=== PATIENT | female | born 1980 | race Caucasian/White ===

== ENCOUNTER 2019-06-21 11:14 | Observation (INO) | payer BC ==
[2019-06-21] MEDS ORDERED: KETOROLAC 30 MG/ML 1 ML VIAL IVP STA (11:39)
[2019-06-21] MEDS ORDERED: ONDANSETRON 4 MG/2 ML VIAL IVP STA (11:39)
[2019-06-21] MEDS ORDERED: SODIUM CHLORIDE 0.9% 1,000 ML IV STA (11:39)
[2019-06-21 12:13] LABS: Basophils % (A) 0 %; Eosinophils # (A) 0.2 k/uL (0-0.7); Eosinophils % (A) 1 %; HCT 47.3 % (34.0-46.0); HGB 15.5 gm/dL (11.4-16.0); Lymphocytes # (A) 1.7 k/uL (1.0-4.8); Lymphocytes % (A) 16 %; MCH 31.5 pg (25.0-35.0); MCHC 32.9 g/dL (31.0-37.0); MCV 95.9 fL (80.0-100.0); Mean Platelet Volume 6.8; Monocytes # (A) 0.5 k/uL (0-1.0); Monocytes % (A) 5 %; Neutrophils # (A) 8.4 k/uL (1.3-7.7); Neutrophils % (A) 77 %; Platelet Count 306 k/uL (150-450); RBC 4.93 m/uL (3.80-5.40); RDW 12.2 % (11.5-15.5); WBC 10.9 k/uL (3.8-10.6)
[2019-06-21 12:17] LABS: ALT 39 U/L (9-52); AST 27 U/L (14-36); African American GFR (CKD) >90 (>60 ml/min/1.73 sqM); Albumin 4.8 g/dL (3.5-5.0); Alkaline Phosphatase 76 U/L (38-126); Amylase 69 U/L (30-110); Anion Gap 10 mmol/L; Blood Urea Nitrogen 13 mg/dL (7-17); Carbon Dioxide 32 mmol/L (22-30); Chloride 96 mmol/L (98-107); Glucose 118 mg/dL (74-99); Non-African American GFR(CKD) >90 (>60 ml/min/1.73 sqM); Sodium 138 mmol/L (137-145); Total Bilirubin 1.2 mg/dL (0.2-1.3); Total Protein 7.8 g/dL (6.3-8.2)
[2019-06-21 12:19] LABS: Partial Thromboplastin Time 24.3 sec (22.0-30.0); Prothrombin Time 10.8 sec (9.0-12.0)
[2019-06-21 12:25] LABS: Appearance,Urine Cloudy (Clear); Bacteria,Urine Rare /hpf; Bilirubin,Urine Negative (Negative); Blood,Urine Large (Negative); Color,Urine Light Red; Glucose,Urine (UA) Negative (Negative); Ketones,Urine 1+ (Negative); Leukocyte Esterase,Urine Moderate (Negative); Mucus,Urine Many /hpf; Nitrite,Urine Negative (Negative); PH, Urine 5.5 (5.0-8.0); Protein,Urine 1+ (Negative); RBC,Urine 3 /hpf (0-5); Specific Gravity,Urine 1.028 (1.001-1.035); Squamous Epithelial Cell,Urine 21 /hpf (0-4); WBC,Urine 5 /hpf (0-5)
[2019-06-21] MEDS ORDERED: MORPHINE SULFATE 4 MG/ML SYRINGE IVP STA (12:33)
--- NOTE | 2019-06-21 13:06 | ED ---
Abdominal Pain HPI - General Chief Complaint: Abdominal Pain Stated Complaint: abdominal pain Time Seen by Provider: 06/21/19 11:24 Source: patient Mode of arrival: ambulatory Limitations: no limitations - History of Present Illness Initial Comments: Patient is a 38-year-old female presenting to emergency Department with complaints of abdominal pain, nausea, vomiting. Patient states she has had abdominal pain intermittently for the last week. Patient states she just started vomiting today. Patient denies any fever, chills, diarrhea. Patient denies any history of abdominal surgeries. Patient has been having regular bowel movements. Patient states she did go to her doctor earlier this week and they recommended her going on a clear liquid diet. Patient states she did that for 2 days and then was feeling better yesterday so she reintroduce some food. Patient states she woke up early this morning and was severe pain again. Patient has no history of kidney stones. Patient denies urinary complaints at this time. Patient has no other complaints at this time. Upon arrival to the ER, vital signs are stable. - Related Data Home Medications Medication Instructions Recorded Confirmed Ibuprofen [Motrin Ib] 400 mg PO Q6H PRN 06/21/19 06/21/19 Allergies Allergy/AdvReac Type Severity Reaction Status Date / Time Penicillins Allergy Unknown Verified 06/21/19 13:59 Childhood Review of Systems ROS Statement: Those systems with pertinent positive or pertinent negative responses have been documented in the HPI. ROS Other: All systems not noted in ROS Statement are negative. Past Medical History Past Medical History: No Reported History History of Any Multi-Drug Resistant Organisms: None Reported Past Surgical History: Joint Replacement, Tubal Ligation Past Psychological History: No Psychological Hx Reported Smoking Status: Current every day smoker Past Alcohol Use History: None Reported Past Drug Use History: Marijuana General Exam - General Exam Comments Initial Comments: GENERAL: Patient is called on the bed with knees underneath her, and pain. HEAD: Atraumatic, normocephalic. EYES: Pupils equal round and reactive to light, extraocular movements intact, sclera anicteric, conjunctiva are normal. ENT: Nares patent, oropharynx clear without exudates. Moist mucous membranes. NECK: Normal range of motion, supple without lymphadenopathy or JVD. LUNGS: Breath sounds clear to auscultation bilaterally and equal. No wheezes rales or rhonchi. HEART: Regular rate and rhythm without murmurs, rubs or gallops. ABDOMEN: Tender to palpation epigastric and right and left upper quadrants. Soft, normoactive bowel sounds. No guarding, no rebound. No masses appreciated. : Deferred EXTREMITIES: Normal range of motion, no pitting or edema. No clubbing or cyanosis. NEUROLOGICAL: Normal speech, normal gait. PSYCH: Normal mood, normal affect. SKIN: Warm, Dry, normal turgor, no rashes or lesions noted. Limitations: no limitations Course Vital Signs 06/21/19 11:19 Temperature 97.6 F Pulse Rate 52 L Respiratory 18 Rate Blood Pressure 120/67 O2 Sat by Pulse 99 Oximetry Medical Decision Making - Medical Decision Making Patient is a 30-year-old female presenting with abdominal pain 1 week as well as vomiting 1 day. Vital signs are stable upon arrival. Patient has very slight leukocytosis at 10.9. Potassium is 3.0. Lipase is slightly elevated at 432. UA is within normal limits. Ultrasound the gallbladder shows no acute findings. Patient was given fluids, pain medication, Zofran and reports slight improvement in symptoms. Patient is still having pain. Patient will be admitted for pain control and fluids. Potassium was replenished. Patient is agreement with this plan of care. Patient was accepted by Dr. De Leon. Case discussed in detail with Dr. Pérez who agrees with this plan of care. - Lab Data Result diagrams: 06/21/19 11:54 06/21/19 11:54 Lab Results 06/21/19 06/21/19 06/21/19 Range/Units 11:54 11:54 11:54 WBC 10.9 H (3.8-10.6) k/uL RBC 4.93 (3.80-5.40) m/uL Hgb 15.5 (11.4-16.0) gm/dL Hct 47.3 H (34.0-46.0) % MCV 95.9 (80.0-100.0) fL MCH 31.5 (25.0-35.0) pg MCHC 32.9 (31.0-37.0) g/dL RDW 12.2 (11.5-15.5) % Plt Count 306 (150-450) k/uL Neutrophils % 77 % Lymphocytes % 16 % Monocytes % 5 % Eosinophils % 1 % Basophils % 0 % Neutrophils # 8.4 H (1.3-7.7) k/uL Lymphocytes # 1.7 (1.0-4.8) k/uL Monocytes # 0.5 (0-1.0) k/uL Eosinophils # 0.2 (0-0.7) k/uL Basophils # 0.0 (0-0.2) k/uL PT (9.0-12.0) sec INR (<1.2) APTT (22.0-30.0) sec Sodium 138 (137-145) mmol/L Potassium 3.0 L (3.5-5.1) mmol/L Chloride 96 L (98-107) mmol/L Carbon Dioxide 32 H (22-30) mmol/L Anion Gap 10 mmol/L BUN 13 (7-17) mg/dL Creatinine 0.83 (0.52-1.04) mg/dL Est GFR (CKD-EPI)AfAm >90 (>60 ml/min/1.73 sqM) Est GFR (CKD-EPI)NonAf >90 (>60 ml/min/1.73 sqM) Glucose 118 H (74-99) mg/dL Calcium 10.0 (8.4-10.2) mg/dL Total Bilirubin 1.2 (0.2-1.3) mg/dL AST 27 (14-36) U/L ALT 39 (9-52) U/L Alkaline Phosphatase 76 (38-126) U/L Total Protein 7.8 (6.3-8.2) g/dL Albumin 4.8 (3.5-5.0) g/dL Amylase 69 (30-110) U/L Lipase 432 H (23-300) U/L Urine Color Urine Appearance (Clear) Urine pH (5.0-8.0) Ur Specific [place] (1.001-1.035) Urine Protein (Negative) Urine Glucose (UA) (Negative) Urine Ketones (Negative) Urine Blood (Negative) Urine Nitrite (Negative) Urine Bilirubin (Negative) Urine Urobilinogen (<2.0) mg/dL Ur Leukocyte Esterase (Negative) Urine RBC (0-5) /hpf Urine WBC (0-5) /hpf Ur Squamous Epith Cells (0-4) /hpf Urine Bacteria (None) /hpf Urine Mucus (None) /hpf Urine HCG, Qual Not Detected (Not Detectd) 06/21/19 06/21/19 Range/Units 11:54 11:54 WBC (3.8-10.6) k/uL RBC (3.80-5.40) m/uL Hgb (11.4-16.0) gm/dL Hct (34.0-46.0) % MCV (80.0-100.0) fL MCH (25.0-35.0) pg MCHC (31.0-37.0) g/dL RDW (11.5-15.5) % Plt Count (150-450) k/uL Neutrophils % % Lymphocytes % % Monocytes % % Eosinophils % % Basophils % % Neutrophils # (1.3-7.7) k/uL Lymphocytes # (1.0-4.8) k/uL Monocytes # (0-1.0) k/uL Eosinophils # (0-0.7) k/uL Basophils # (0-0.2) k/uL PT 10.8 (9.0-12.0) sec INR 1.0 (<1.2) APTT 24.3 (22.0-30.0) sec Sodium (137-145) mmol/L Potassium (3.5-5.1) mmol/L Chloride (98-107) mmol/L Carbon Dioxide (22-30) mmol/L Anion Gap mmol/L BUN (7-17) mg/dL Creatinine (0.52-1.04) mg/dL Est GFR (CKD-EPI)AfAm (>60 ml/min/1.73 sqM) Est GFR (CKD-EPI)NonAf (>60 ml/min/1.73 sqM) Glucose (74-99) mg/dL Calcium (8.4-10.2) mg/dL Total Bilirubin (0.2-1.3) mg/dL AST (14-36) U/L ALT (9-52) U/L Alkaline Phosphatase (38-126) U/L Total Protein (6.3-8.2) g/dL Albumin (3.5-5.0) g/dL Amylase (30-110) U/L Lipase (23-300) U/L Urine Color Light Red Urine Appearance Cloudy H (Clear) Urine pH 5.5 (5.0-8.0) Ur Specific [place] 1.028 (1.001-1.035) Urine Protein 1+ H (Negative) Urine Glucose (UA) Negative (Negative) Urine Ketones 1+ H (Negative) Urine Blood Large H (Negative) Urine Nitrite Negative (Negative) Urine Bilirubin Negative (Negative) Urine Urobilinogen 6.0 (<2.0) mg/dL Ur Leukocyte Esterase Moderate H (Negative) Urine RBC 3 (0-5) /hpf Urine WBC 5 (0-5) /hpf Ur Squamous Epith Cells 21 H (0-4) /hpf Urine Bacteria Rare H (None) /hpf Urine Mucus Many H (None) /hpf Urine HCG, Qual (Not Detectd) Disposition Clinical Impression: Pancreatitis Disposition: ADMITTED IP TO THIS [facility] Condition: Stable Is patient prescribed a controlled substance at d/c from ED?: No Referrals: Tanmay Vail MD [Primary Care Provider] - 1-2 days Decision Date: 06/21/19 Decision Time: 14:01
--- NOTE | 2019-06-21 13:09 | US ---
EXAMINATION TYPE: US gallbladder DATE OF EXAM: 06/21/2019 COMPARISON: NONE CLINICAL HISTORY: pain, elevated lipase. EXAM MEASUREMENTS: Liver Length: 11.5 cm Gallbladder Wall: 0.2 cm CBD: 0.1 cm Right Kidney: 9.5 x 3.2 x 4.9 cm Pancreas: wnl Liver: wnl Gallbladder: wnl Evidence for sonographic Sanchez's sign: no CBD: wnl Right Kidney: No hydronephrosis or masses seen IMPRESSION: Unremarkable study.
[2019-06-21] MEDS ORDERED: ACETAMINOPHEN TAB 325 MG TAB PO PRN (13:57)
[2019-06-21] MEDS ORDERED: ONDANSETRON 4 MG/2 ML VIAL IVP PRN (13:57)
[2019-06-21] MEDS ORDERED: traMADol 50 MG TAB PO PRN (13:57)
[2019-06-21] MEDS ORDERED: NALOXONE 0.4 MG/ML 1 ML VIAL IV PRN (13:57)
[2019-06-21] MEDS: SODIUM CHLORIDE 0.9% 1,000 ML IV SCH (14:43)
[2019-06-21] MEDS: POTASSIUM CHLORIDE 10 MEQ in WATER FOR INJECTION 1 100ML.BAG IVPB SCH ×4 (14:44→19:47)
[2019-06-21] MEDS: MORPHINE SULFATE 4 MG/ML SYRINGE IV PRN (17:13)
[2019-06-22] MEDS: MORPHINE SULFATE 4 MG/ML SYRINGE IV PRN (01:27)
[2019-06-22 01:35] VITALS: RESP 16
[2019-06-22] MEDS: SODIUM CHLORIDE 0.9% 1,000 ML IV SCH (06:08)
[2019-06-22 13:41] VITALS: BMI 21.7
[2019-06-22] MEDS ORDERED: FAMOTIDINE 20 MG TAB PO STA (15:37)
[2019-06-22] MEDS ORDERED: NICOTINE 14MG/24HR PATCH TRANSDERM SCH (15:45)
[2019-06-22 16:24] VITALS: BP 141/62; PULSE 66; TEMP 97.9
--- NOTE | 2019-06-22 22:57 | P.HPIM ---
History of Present Illness H&P Date: 06/22/19 Chief Complaint: Epigastric burning History of presenting complaint: This is a 38-year-old patient of Dr. Vail. Present with her . Patient does get epigastric burning with heartburn discomfort off and on for some time. Patient does smoke cigarettes and sometimes take Motrin including when she gets painful periods. 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 Patient gets per 4:00 and will have a few bowel movements and then depending what she can get has to eat and then go to work. Sometimes she'll work in early drink coffee. This is a routine. She is anxious. And during the interview often times will break down crying. The bun incision in the epigastrium also goes up into her chest. No radiation to neck or arm. Not related to activity. She is also tender in the epigastrium. No black stools. She in the past has followed up with Bettye mccauley. But then never followed up. No fever no chills. Review of systems: GEN.: Tired EYES: None HEENT: None NECK: None RESPIRATORY: Occasional wheezing CARDIOVASCULAR: No prechordal pain GASTROINTESTINAL: As above GENITOURINARY: Some urinary frequency and patient on a periods MUSCULOSKELETAL: None LYMPHATICS: None HEMATOLOGICAL: None PSYCHIATRY: Anxious NEUROLOGICAL: None Past medical history: Unremarkable Social history: Smokes half a pack a day most days sometimes more. For many years. Does marijuana 2 or 3 times a day. 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 EYES: Pupils equal. Conjunctiva normal. HEENT: External appearance of nose and ears normal, oral cavity grossly normal. NECK: JVD not raised; masses not palpable. HEART: First and second heart sounds are normal; no edema. LUNGS: Respiratory rate normal; slightly decreased breath sounds. ABDOMEN: Soft, some epigastric tenderness, no guarding rigidity, liver spleen not palpable, no masses palpable. PSYCH: [Alert and oriented x3; mood and affect anxious l. NEUROLOGICAL: Cranial nerves grossly intact; no facial asymmetry, power and sensation grossly intact. LYMPHATICS: No lymph nodes palpable in the axilla and neck INVESTIGATIONS, reviewed in the clinical context: White count 10.9 hemoglobin 15.5 platelets 306 potassium 3 creatinine 0.83 Amylase normal Lipase-432 UA-positive for leukoesterase and blood Ultrasound for gallbladder-negative Assessment: -Patient is a long-standing history of epigastric burning which is progressively gotten worse. Patient does take NSAIDs occasionally. Also long-standing smoker. Patient's history and findings are compatible with gastritis esophagitis and GERD. Patient is feeling better since admission. -Chronic nicotine dependence cigarette smoker -Chronic marijuana use recreational Plan: Patient started on clear liquids which she did tolerate. Given IV fluids. Counseled about maintaining good eating habits and schedule. Care was discussed at length with the patient and at the bedside. is very supportive of the discussion. Smoke cessation counseling: This was done with the patient. Nicotine patch is being given. More than 3 minutes was spent for this Past Medical History Past Medical History: No Reported History Additional Past Medical History / Comment(s): daily marijuana use History of Any Multi-Drug Resistant Organisms: None Reported Past Surgical History: Joint Replacement, Tubal Ligation Additional Past Surgical History / Comment(s): joint replacement left knee Past Anesthesia/Blood Transfusion Reactions: Postoperative Nausea & Vomiting (PONV) Past Psychological History: No Psychological Hx Reported Smoking Status: Current every day smoker Past Alcohol Use History: None Reported Past Drug Use History: Marijuana Additional Drug Use History / Comment(s): daily marijuana use - Past Family History Mother Additional Family Medical History / Comment(s): gall bladder removed, bleeding ulcer Medications and Allergies Home Medications Medication Instructions Recorded Confirmed Type Acetaminophen Tab [Tylenol Tab] 500 mg PO Q6H PRN #30 tablet 06/22/19 Rx Ciprofloxacin HCl [Cipro] 250 mg PO Q12HR #6 tablet 06/22/19 Rx Famotidine [Pepcid] 20 mg PO BID #60 tablet 06/22/19 Rx Nicotine 14Mg/24Hr Patch [Habitrol] 1 patch TRANSDERM DAILY #14 patch 06/22/19 Rx Allergies Allergy/AdvReac Type Severity Reaction Status Date / Time Penicillins Allergy Unknown Verified 06/21/19 15:07 Childhood Physical Exam Vitals: Vital Signs Temp Pulse Pulse Resp BP BP Pulse Ox 06/22/19 08:00 97.4 F L 52 L 16 109/75 98 06/22/19 01:35 98.5 F 52 L 16 91/55 98 06/22/19 00:00 52 L 16 06/21/19 20:30 98.5 F 52 L 16 93/52 99 06/21/19 17:20 97.7 F 52 L 16 121/62 98 06/21/19 15:00 52 L 06/21/19 14:47 97.5 F L 52 L 14 129/57 100 06/21/19 14:11 98.4 F 50 L 16 126/76 100 06/21/19 11:19 97.6 F 52 L 18 120/67 99 Intake and Output 06/21/19 06/22/19 06/22/19 22:59 06:59 14:59 Intake Total 180 Output Total 50 300 Balance 130 -300 Intake: Oral 180 Output: Urine 50 300 Other: Voiding Method Toilet Toilet Toilet # Voids 1 1 1 # Bowel Movements 1 Results CBC & Chem 7: 06/21/19 11:54 06/21/19 22:11 Labs: Abnormal Lab Results - Last 24 Hours (Table) 06/21/19 06/21/19 06/21/19 Range/Units 11:54 11:54 11:54 WBC 10.9 H (3.8-10.6) k/uL Hct 47.3 H (34.0-46.0) % Neutrophils # 8.4 H (1.3-7.7) k/uL Potassium 3.0 L (3.5-5.1) mmol/L Chloride 96 L (98-107) mmol/L Carbon Dioxide 32 H (22-30) mmol/L Glucose 118 H (74-99) mg/dL Lipase 432 H (23-300) U/L Urine Appearance Cloudy H (Clear) Urine Protein 1+ H (Negative) Urine Ketones 1+ H (Negative) Urine Blood Large H (Negative) Ur Leukocyte Esterase Moderate H (Negative) Ur Squamous Epith Cells 21 H (0-4) /hpf Urine Bacteria Rare H (None) /hpf Urine Mucus Many H (None) /hpf Thrombosis Risk Factor Assmnt - Choose All That Apply Any of the Below Risk Factors Present?: No Other Risk Factors: No Each Risk Factor Represents 3 Points: Family history of DVT/PE Other congenital or acquired thrombophilia - If yes, enter type in comment: No Thrombosis Risk Factor Assessment Total Risk Factor Score: 3 Thrombosis Risk Factor Assessment Level: Very Low Risk
--- NOTE | 2019-06-22 23:00 | P.DS ---
Providers Date of admission: 06/21/19 13:51 Expected date of discharge: 06/22/19 Attending physician: Brennan De Leon Primary care physician: [facility] Course: Chief Complaint: Epigastric burning History of presenting complaint: This is a 38-year-old patient of Dr. Vail. Present with her . Patient does get epigastric burning with heartburn discomfort off and on for some time. Patient does smoke cigarettes and sometimes take Motrin including when she gets painful periods. 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 Patient gets per 4:00 and will have a few bowel movements and then depending what she can get has to eat and then go to work. Sometimes she'll work in early drink coffee. This is a routine. She is anxious. And during the interview often times will break down crying. The bun incision in the epigastrium also goes up into her chest. No radiation to neck or arm. Not related to activity. She is also tender in the epigastrium. No black stools. She in the past has followed up with Bettye mccauley. But then never followed up. No fever no chills. Patient given Pepcid. 2 which she felt better. Counseled at length about not smoking. Talked about lifestyle changes in food habits. We'll follow with GI for possible EGD. started on H2 blockers. Symptoms much better by the time of discharge. Did tolerate her diet. Treated for UTI. Told to discontinue NSAIDs. Physical examination: VITAL SIGNS: 97.7, 52, 16, 121/62, 98% room air GENERAL: BMI 21.7, sitting up, anxious sometimes tearful. EYES: Pupils equal. Conjunctiva normal. HEENT: External appearance of nose and ears normal, oral cavity grossly normal. NECK: JVD not raised; masses not palpable. HEART: First and second heart sounds are normal; no edema. LUNGS: Respiratory rate normal; slightly decreased breath sounds. ABDOMEN: Soft, some epigastric tenderness, no guarding rigidity, liver spleen not palpable, no masses palpable. PSYCH: [Alert and oriented x3; mood and affect anxious INVESTIGATIONS, reviewed in the clinical context: White count 10.9 hemoglobin 15.5 platelets 306 potassium 3 creatinine 0.83 Amylase normal Lipase-432 UA-positive for leukoesterase and blood Ultrasound for gallbladder-negative Assessment: -Possible gastritis, duodenitis, esophagitis and severe GERD with a contribution from smoking and use of NSAIDs. -Chronic nicotine dependence cigarette smoker -Chronic marijuana use recreational Disposition: Home Patient Condition at Discharge: Stable Plan - Discharge Summary Discharge Rx Participant: No New Discharge Prescriptions: New Ciprofloxacin HCl [Cipro] 250 mg PO Q12HR #6 tablet Nicotine 14Mg/24Hr Patch [Habitrol] 1 patch TRANSDERM DAILY #14 patch Famotidine [Pepcid] 20 mg PO BID #60 tablet Acetaminophen Tab [Tylenol Tab] 500 mg PO Q6H PRN #30 tablet PRN Reason: Pain Discontinued Ibuprofen [Motrin Ib] 400 mg PO Q6H PRN PRN Reason: Pain Discharge Medication List Acetaminophen Tab [Tylenol Tab] 500 mg PO Q6H PRN #30 tablet 06/22/19 [Rx] Ciprofloxacin HCl [Cipro] 250 mg PO Q12HR #6 tablet 06/22/19 [Rx] Famotidine [Pepcid] 20 mg PO BID #60 tablet 06/22/19 [Rx] Nicotine 14Mg/24Hr Patch [Habitrol] 1 patch TRANSDERM DAILY #14 patch 06/22/19 [Rx] Follow up Appointment(s)/Referral(s): Tanmay Vail MD [Primary Care Provider] - 3 Days Jairo Cervantes MD [STAFF PHYSICIAN] - 1 Week Patient Instructions/Handouts: Pancreatitis (GEN), Potassium Content of Foods List (GEN) Activity/Diet/Wound Care/Special Instructions: Good handwashing. Drink plenty of fluids. Keep follow up appointment with your primary care physician as directed. Make an appointment to see Dr Cervantes as instructed. Discharge Disposition: HOME SELF-CARE
== END 2019-06-22 17:45 | disposition home or self-care (01) ==
LOC: EC 11:14 → 6PED 13:51
PROVIDERS: ADMIT Hospitalist; ATTEND Hospitalist
DX: R10.13 Epigastric pain (principal); T39.395A Adverse effect of other nonsteroidal anti-inflammatory drugs [NSAID], initial encounter; N39.0 Urinary tract infection, site not specified; N94.6 Dysmenorrhea, unspecified; R10.816 Epigastric abdominal tenderness; R74.8 Abnormal levels of other serum enzymes; D72.829 Elevated white blood cell count, unspecified; F17.210 Nicotine dependence, cigarettes, uncomplicated; F12.90 Cannabis use, unspecified, uncomplicated; Z88.0 Allergy status to penicillin; F41.9 Anxiety disorder, unspecified; Z98.51 Tubal ligation status; Z96.652 Presence of left artificial knee joint; Z82.49 Family history of ischemic heart disease and other diseases of the circulatory system; Z83.79 Family history of other diseases of the digestive system
CPT/HCPCS: 96365; 96366; 96367; 96376 ×2; 96361; 96375; 99285; 36415; 80053; 82150; 83690; 84132; 85025; 85610; 85730; 81001; 81025; 76705; G0378 ×2; S4990; J2270 ×2; J2405; J0696; J1885; J3480

== ENCOUNTER 2020-10-12 08:15 | Day surgery (SDC) | payer BC ==
[2020-10-04 12:36] VITALS: BMI 22.6
[~2020-10-12 08:15] MED LIST: LACTATED RINGERS 1,000 ML IV SCH
[2020-10-12 08:58] VITALS: RESP 16; TEMP 97.9
[2020-10-12] MEDS ORDERED: GLYCOPYRROLATE 0.2 MG/ML 2 ML VIAL ONE (10:01)
[2020-10-12] MEDS ORDERED: PROPOFOL 10 MG/ML 20 ML VIAL IV ONE (10:01)
[2020-10-12] MEDS ORDERED: LIDOCAINE 1% INJ 10MG/ML (20 ML MDV) ONE (10:01)
[2020-10-12] MEDS ORDERED: LACTATED RINGERS 1,000 ML IV ONE (10:39)
--- NOTE | 2020-10-12 10:44 | P.PCN ---
Date of Procedure: 10/12/20 Description of Procedure: Brief history: Patient is a pleasant 40-year-old female presenting for outpatient EGD and colonoscopy for evaluation of epigastric abdominal pain and benign neoplasm of the colon. She reports pain in the epigastric and right upper quadrant of her abdomen. She reports diagnosis of cannabinoid hyperemesis syndrome. Prior colonoscopy in 2018 with rectal polyp and diverticulosis. Procedure performed: Esophagogastroduodenoscopy with biopsy Colonoscopy with polypectomy Estimated blood loss: Minimal. Preoperative diagnosis: Epigastric abdominal pain, right upper quadrant abdominal pain, benign neoplasm of the colon, prior colonoscopy in 2018 with polypectomy Anesthesia: [facility] [place] Procedure: After informed consent was obtained from the patient was brought into the endoscopy unit and IV sedation was administered by anesthesia under continuous monitoring. Initially upper endoscopy was done. The Olympus GF 190 video endoscope was inserted into the mouth and esophagus intubated without any difficulty and was gradually advanced into the stomach and duodenum and c arefully examined. The bulb and second part of the duodenum appeared normal, with biopsies taken. The scope was then withdrawn into the stomach adequately insufflated with air and upon careful examination the antrum and body, cardia and fundus appeared normal Except for some mild punctate erythema in the antrum and body suggestive of mild gastritis biopsies taken . The scope was then withdrawn into the esophagus. The GE junction was located at 40 cm to the incisors and biopsied . It appeared regular with no erythema erosions or ulcerations. Rest of the esophagus appeared normal. Patient tolerated the procedure well. At this time the patient continued to remain sedation. Initial digital rectal examination was normal. Olympus CF 190 video colonoscope was then inserted into the rectum and gradually advanced to the cecum without any difficulty. Careful examination was performed as the scope was gradually being withdrawn. The prep was excellent. The cecum, ascending colon, transverse colon, descending colon, sigmoid colon and rectum appeared normal, With multiple small mouth diverticula in the left colon. A flat 4 mm sigmoid polyp was removed with cold snare polypectomy. Retroflexion was performed in the rectum and no lesions were noted, Low-grade internal hemorrhoids. Patient tolerated the procedure well. Impression: 1. Mild gastritis. Biopsies of the duodenum, antrum body and GE junction. 2. Flat sigmoid colon polyp removed with cold snare polypectomy. Mild left colonic diverticulosis. Internal hemorrhoids. Recommendations: Findings of this examination were discussed with the patient as well as her family. Okay to resume diet. Continue medication. Await pathology from biopsies and polypectomy. Follow-up in the GI clinic as previously scheduled. Recommend repeat colonoscopy in 7 years for colon polyp pending pathology from polypectomy.
[2020-10-12 11:04] VITALS: BP 127/75; PULSE 68
== END 2020-10-12 11:44 | disposition home or self-care (01) ==
LOC: ORWHC2ENDO 08:15
PROVIDERS: ATTEND Internal Medicine
DX: K63.5 Polyp of colon (principal); K57.30 Diverticulosis of large intestine without perforation or abscess without bleeding; K64.8 Other hemorrhoids; K29.50 Unspecified chronic gastritis without bleeding; K20.90 Esophagitis, unspecified without bleeding; F17.210 Nicotine dependence, cigarettes, uncomplicated; R11.10 Vomiting, unspecified; F12.90 Cannabis use, unspecified, uncomplicated; Z86.010 Personal history of colon polyps; Z88.0 Allergy status to penicillin; Z79.899 Other long term (current) drug therapy; Z98.51 Tubal ligation status; Z98.890 Other specified postprocedural states; Z97.2 Presence of dental prosthetic device (complete) (partial); Z96.652 Presence of left artificial knee joint; Z91.89 Other specified personal risk factors, not elsewhere classified
CPT/HCPCS: 81025; 88305; 45385; 43239; J2001; J2704

== ENCOUNTER 2022-03-13 10:19 | Emergency (ER) | payer BC ==
[2022-03-13 10:32] VITALS: PULSE 74; TEMP 97.7
[2022-03-13] MEDS ORDERED: SODIUM CHLORIDE 0.9% 1,000 ML IV STA (11:48)
[2022-03-13] MEDS ORDERED: ONDANSETRON 4 MG/2 ML VIAL IVP STA (11:48)
[2022-03-13 12:35] LABS: Basophils # (A) 0.1 k/uL (0-0.2); Basophils % (A) 0 %; Eosinophils # (A) 0.2 k/uL (0-0.7); Eosinophils % (A) 2 %; HCT 45.7 % (34.0-46.0); Lymphocytes # (A) 1.9 k/uL (1.0-4.8); Lymphocytes % (A) 14 %; MCH 30.9 pg (25.0-35.0); MCHC 30.6 g/dL (31.0-37.0); MCV 100.9 fL (80.0-100.0); Mean Platelet Volume 7.3; Monocytes # (A) 0.5 k/uL (0-1.0); Monocytes % (A) 4 %; Neutrophils # (A) 11.1 k/uL (1.3-7.7); Neutrophils % (A) 79 %; Platelet Count 389 k/uL (150-450); RBC 4.53 m/uL (3.80-5.40)
[2022-03-13 12:38] LABS: Appearance,Urine Cloudy (Clear); Bacteria,Urine Rare /hpf; Bilirubin,Urine Negative (Negative); Blood,Urine Negative (Negative); Color,Urine Yellow; Glucose,Urine (UA) Negative (Negative); Ketones,Urine Negative (Negative); Leukocyte Esterase,Urine Small (Negative); Mucus,Urine Occasional /hpf; Nitrite,Urine Negative (Negative); Protein,Urine Negative (Negative); RBC,Urine 1 /hpf (0-5); Specific Gravity,Urine 1.013 (1.001-1.035); Squamous Epithelial Cell,Urine 4 /hpf (0-4); Urobilinogen,Urine <2.0 mg/dL (<2.0); WBC,Urine 2 /hpf (0-5)
[2022-03-13 12:51] LABS: ALT 12 U/L (4-34); AST 19 U/L (14-36); African American GFR (CKD) >90 (>60 ml/min/1.73 sqM); Albumin 4.2 g/dL (3.5-5.0); Alkaline Phosphatase 115 U/L (38-126); Anion Gap 9 mmol/L; Blood Urea Nitrogen 5 mg/dL (7-17); Carbon Dioxide 25 mmol/L (22-30); Chloride 105 mmol/L (98-107); Glucose 92 mg/dL (74-99); Lipase 52 U/L (23-300); Non-African American GFR(CKD) >90 (>60 ml/min/1.73 sqM); Potassium 4.4 mmol/L (3.5-5.1); Sodium 139 mmol/L (137-145); Total Bilirubin 0.3 mg/dL (0.2-1.3); Total Protein 7.1 g/dL (6.3-8.2)
--- NOTE | 2022-03-13 13:20 | CT ---
EXAMINATION TYPE: CT abdomen pelvis wo con CT DLP: 381.3 mGycm, Automated exposure control for dose reduction was used. DATE OF EXAM: 03/13/2022 1:05 PM COMPARISON: Gallbladder ultrasound 06/21/2019. CLINICAL INDICATION:Female, 41 years old with history of abdominal pain; TECHNIQUE: Standard CT of the abdomen and pelvis without IV or oral contrast. Lack of IV or oral co ntrast limits evaluation of solid and hollow organ viscera. Coronal and sagittal reformats were perfo rmed. FINDINGS: LOWER CHEST: Unremarkable ABDOMEN LIVER: Unremarkable noncontrast appearance. GALLBLADDER AND BILE DUCTS: The gallbladder is surgically absent. No biliary ductal dilatation. PANCREAS: Unremarkable noncontrast appearance. SPLEEN: Unremarkable noncontrast appearance. ADRENAL GLANDS: Unremarkable noncontrast appearance. KIDNEYS AND URETERS: No evidence of hydronephrosis or renal calculus. No calculi along the expected c ourse of both ureters. PELVIS BLADDER: Incompletely distended but grossly unremarkable. REPRODUCTIVE: Unremarkable appearance of the adnexa and uterus on this unenhanced CT exam. Bilateral tubal ligation clips identified. ABDOMEN & PELVIS STOMACH AND BOWEL: Stomach and duodenum are unremarkable. Scattered colonic diverticulosis. Subtle andino ggested mild pericolonic inflammatory changes of the descending colon (series 202, image 47). The uriel endix is not definitively visualized however there is no significant inflammatory changes within the right lower quadrant. No pneumatosis or portal venous gas. No pericolonic abscess. No evidence of bow el obstruction. PERITONEUM: No evidence of pneumoperitoneum or free fluid. VASCULATURE: No evidence of aortic aneurysm. MUSCULOSKELETAL: No acute osseous abnormalities LYMPH NODES: No gross evidence for lymphadenopathy. SOFT TISSUE/ABDOMINAL WALL: Tiny fat filled umbilical hernia. IMPRESSION: Colonic diverticulosis with subtle mild pericolonic inflammatory changes of the descending colon sugnaomi gray. Findings may represent mild uncomplicated diverticulitis.
[2022-03-13] MEDS ORDERED: cefTRIAXone IN SWFI 1,000 MG/10 ML SYRINGE IVP STA (13:21)
[2022-03-13] MEDS ORDERED: metroNIDAZOLE 500 MG TAB PO STA (13:22)
--- NOTE | 2022-03-13 13:22 | ED ---
Abdominal Pain HPI - General Chief Complaint: Abdominal Pain Stated Complaint: abd pain Time Seen by Provider: 03/13/22 10:35 Source: patient, family Mode of arrival: ambulatory Limitations: no limitations - History of Present Illness Initial Comments: 41-year-old female past medical history of marijuana use, abdominal pain, colon polyps presents to the emergency department with nausea, vomiting abdominal pain for the past week. She went into [facility] on Sunday for this pain. Her workup was unremarkable and she was discharged home on Zofran. Has been taking Zofran however wakes up each morning with abdominal pain and nausea. Pain is worse with food intake and better with rest. She has had a cholecystectomy. Denies any changes in her urination to include dysuria, hematuria or decreased voiding. Denies constipation, black or bloody stools. Does admit to some diarrhea this morning. No sick contacts with similar symptoms. No pain radiating into the back. Denies concern for . No abnormal vaginal bleeding. No other alleviating, Perceptin or modifying factors - Related Data Previous Rx's Medication Instructions Recorded Ciprofloxacin HCl [Cipro] 500 mg PO Q12HR #14 tablet 03/13/22 metroNIDAZOLE [Flagyl] 500 mg PO TID #21 tab 03/13/22 Allergies Allergy/AdvReac Type Severity Reaction Status Date / Time Penicillins Allergy Unknown Verified 03/14/22 08:28 Childhood Review of Systems ROS Statement: Those systems with pertinent positive or pertinent negative responses have been documented in the HPI. ROS Other: All systems not noted in ROS Statement are negative. Past Medical History Past Medical History: GERD/Reflux Additional Past Medical History / Comment(s): daily marijuana use, epigastric pain frequently, gets nauseated w/pain when it comes, slow heart rate normally, hx. colon polyp History of Any Multi-Drug Resistant Organisms: None Reported Past Surgical History: Cholecystectomy, Orthopedic Surgery, Tubal Ligation Additional Past Surgical History / Comment(s): reconstructive surg. left knee af ter fx., all teeth removed, colonoscopy Past Anesthesia/Blood Transfusion Reactions: Postoperative Nausea & Vomiting (PONV) Past Psychological History: No Psychological Hx Reported Smoking Status: Current every day smoker Past Alcohol Use History: None Reported Past Drug Use History: Marijuana - Past Family History Mother Additional Family Medical History / Comment(s): gall bladder removed, bleeding ulcer General Exam Limitations: no limitations General appearance: alert, in no apparent distress Head exam: Present: atraumatic, normocephalic, normal inspection Eye exam: Present: normal appearance, PERRL, EOMI. Absent: scleral icterus, conjunctival injection, periorbital swelling ENT exam: Present: normal exam, mucous membranes moist Neck exam: Present: normal inspection. Absent: tenderness, meningismus, lymphadenopathy Respiratory exam: Present: normal lung sounds bilaterally. Absent: respiratory distress, wheezes, rales, rhonchi, stridor Cardiovascular Exam: Present: regular rate, normal rhythm, normal heart sounds. Absent: systolic murmur, diastolic murmur, rubs, gallop, clicks GI/Abdominal exam: Present: soft, tenderness (generalized), normal bowel sounds. Absent: distended, guarding, rebound, rigid Extremities exam: Present: normal inspection, full ROM, normal capillary refill. Absent: tenderness, pedal edema, joint swelling, calf tenderness Back exam: Present: normal inspection Neurological exam: Present: alert, oriented X3, CN II-XII intact Psychiatric exam: Present: normal affect, normal mood Skin exam: Present: warm, dry, intact, normal color. Absent: rash Course Vital Signs 03/13/22 03/13/22 10:29 14:09 Temperature 97.7 F Pulse Rate 74 Respiratory 18 16 Rate Blood Pressure 119/79 109/74 O2 Sat by Pulse 99 Oximetry Medical Decision Making - Medical Decision Making Upon arrival patient is placed into room 20. A thorough history and physical exam was performed. IV access established laboratory studies were conducted. White count is 14. CT demonstrates acute mild diverticulitis. Patient given a dose of Rocephin and Flagyl in the emergency department. Patient will be discharged home on Cipro and Flagyl for diverticulitis. Instructed follow up with primary care doctor in 2-4 days or return for any new or worsening symptoms. She does have Zofran at home for nausea. Patient agreeable to the plan was discharged home in stable condition - Lab Data Result diagrams: 03/13/22 12:04 03/13/22 12:04 Lab Results 03/13/22 03/13/22 03/13/22 Range/Units 12:04 12:04 12:04 WBC 14.0 H (3.8-10.6) k/uL RBC 4.53 (3.80-5.40) m/uL Hgb 14.0 (11.4-16.0) gm/dL Hct 45.7 (34.0-46.0) % MCV 100.9 H (80.0-100.0) fL MCH 30.9 (25.0-35.0) pg MCHC 30.6 L (31.0-37.0) g/dL RDW 13.0 (11.5-15.5) % Plt Count 389 (150-450) k/uL MPV 7.3 Neutrophils % 79 % Lymphocytes % 14 % Monocytes % 4 % Eosinophils % 2 % Basophils % 0 % Neutrophils # 11.1 H (1.3-7.7) k/uL Lymphocytes # 1.9 (1.0-4.8) k/uL Monocytes # 0.5 (0-1.0) k/uL Eosinophils # 0.2 (0-0.7) k/uL Basophils # 0.1 (0-0.2) k/uL Sodium (137-145) mmol/L Potassium (3.5-5.1) mmol/L Chloride (98-107) mmol/L Carbon Dioxide (22-30) mmol/L Anion Gap mmol/L BUN (7-17) mg/dL Creatinine (0.52-1.04) mg/dL Est GFR (CKD-EPI)AfAm (>60 ml/min/1.73 sqM) Est GFR (CKD-EPI)NonAf (>60 ml/min/1.73 sqM) Glucose (74-99) mg/dL Plasma Lactic Acid Wojciech (0.7-2.0) mmol/L Calcium (8.4-10.2) mg/dL Total Bilirubin (0.2-1.3) mg/dL AST (14-36) U/L ALT (4-34) U/L Alkaline Phosphatase (38-126) U/L Total Protein (6.3-8.2) g/dL Albumin (3.5-5.0) g/dL Lipase (23-300) U/L Urine Color Yellow Urine Appearance Cloudy H (Clear) Urine pH 5.0 (5.0-8.0) Ur Specific [place] 1.013 (1.001-1.035) Urine Protein Negative (Negative) Urine Glucose (UA) Negative (Negative) Urine Ketones Negative (Negative) Urine Blood Negative (Negative) Urine Nitrite Negative (Negative) Urine Bilirubin Negative (Negative) Urine Urobilinogen <2.0 (<2.0) mg/dL Ur Leukocyte Esterase Small H (Negative) Urine RBC 1 (0-5) /hpf Urine WBC 2 (0-5) /hpf Ur Squamous Epith Cells 4 (0-4) /hpf Urine Bacteria Rare H (None) /hpf Urine Mucus Occasional H (None) /hpf Urine HCG, Qual Not Detected (Not Detectd) 03/13/22 03/13/22 Range/Units 12:04 12:04 WBC (3.8-10.6) k/uL RBC (3.80-5.40) m/uL Hgb (11.4-16.0) gm/dL Hct (34.0-46.0) % MCV (80.0-100.0) fL MCH (25.0-35.0) pg MCHC (31.0-37.0) g/dL RDW (11.5-15.5) % Plt Count (150-450) k/uL MPV Neutrophils % % Lymphocytes % % Monocytes % % Eosinophils % % Basophils % % Neutrophils # (1.3-7.7) k/uL Lymphocytes # (1.0-4.8) k/uL Monocytes # (0-1.0) k/uL Eosinophils # (0-0.7) k/uL Basophils # (0-0.2) k/uL Sodium 139 (137-145) mmol/L Potassium 4.4 (3.5-5.1) mmol/L Chloride 105 (98-107) mmol/L Carbon Dioxide 25 (22-30) mmol/L Anion Gap 9 mmol/L BUN 5 L (7-17) mg/dL Creatinine 0.64 (0.52-1.04) mg/dL Est GFR (CKD-EPI)AfAm >90 (>60 ml/min/1.73 sqM) Est GFR (CKD-EPI)NonAf >90 (>60 ml/min/1.73 sqM) Glucose 92 (74-99) mg/dL Plasma Lactic Acid Wojciech 0.7 (0.7-2.0) mmol/L Calcium 9.0 (8.4-10.2) mg/dL Total Bilirubin 0.3 (0.2-1.3) mg/dL AST 19 (14-36) U/L ALT 12 (4-34) U/L Alkaline Phosphatase 115 (38-126) U/L Total Protein 7.1 (6.3-8.2) g/dL Albumin 4.2 (3.5-5.0) g/dL Lipase 52 (23-300) U/L Urine Color Urine Appearance (Clear) Urine pH (5.0-8.0) Ur Specific [place] (1.001-1.035) Urine Protein (Negative) Urine Glucose (UA) (Negative) Urine Ketones (Negative) Urine Blood (Negative) Urine Nitrite (Negative) Urine Bilirubin (Negative) Urine Urobilinogen (<2.0) mg/dL Ur Leukocyte Esterase (Negative) Urine RBC (0-5) /hpf Urine WBC (0-5) /hpf Ur Squamous Epith Cells (0-4) /hpf Urine Bacteria (None) /hpf Urine Mucus (None) /hpf Urine HCG, Qual (Not Detectd) Disposition Clinical Impression: Abdominal pain, Diverticulitis Disposition: HOME SELF-CARE Condition: Stable Instructions (If sedation given, give patient instructions): Diverticulitis (ED) Additional Instructions: Take the antibiotics and nausea medications as directed. Follow up with your doctor in 2-4 days and return for any new or worsening symptoms Prescriptions: Ciprofloxacin HCl [Cipro] 500 mg PO Q12HR #14 tablet metroNIDAZOLE [Flagyl] 500 mg PO TID #21 tab Is patient prescribed a controlled substance at d/c from ED?: No Referrals: Tanmay Vail MD [Primary Care Provider] - 1-2 days Savannah Mitchell MD [STAFF PHYSICIAN] - 1-2 days Time of Disposition: 13:40
[2022-03-13 14:10] VITALS: BP 109/74; RESP 16
== END 2022-03-13 14:09 | disposition home or self-care (01) ==
LOC: EC 10:19
DX: K57.92 Diverticulitis of intestine, part unspecified, without perforation or abscess without bleeding (principal); K21.9 Gastro-esophageal reflux disease without esophagitis; Z79.83 Long term (current) use of bisphosphonates; F17.200 Nicotine dependence, unspecified, uncomplicated; Z88.0 Allergy status to penicillin
CPT/HCPCS: 36415; 80053; 83605; 83690; 85025; 81001; 81025; 74176; 99284; 96374; 96375; J2405; J0696

== ENCOUNTER 2022-03-14 06:34 | Observation (INO) | payer BC ==
[2022-03-14] MEDS ORDERED: KETOROLAC 15 MG/ML 1 ML VIAL IVP STA (07:41)
[2022-03-14] MEDS ORDERED: HYDROmorphone 0.5 MG/0.5 ML SYRINGE IVP STA (07:41)
[2022-03-14] MEDS ORDERED: SODIUM CHLORIDE 0.9% 1,000 ML IV STA (07:41)
[2022-03-14 08:04] LABS: Basophils % (A) 0 %; Eosinophils # (A) 0.4 k/uL (0-0.7); Eosinophils % (A) 2 %; HCT 49.4 % (34.0-46.0); Lymphocytes # (A) 1.1 k/uL (1.0-4.8); Lymphocytes % (A) 6 %; MCHC 30.4 g/dL (31.0-37.0); MCV 101.8 fL (80.0-100.0); Macrocytosis Slight; Mean Platelet Volume 7.1; Monocytes # (A) 0.6 k/uL (0-1.0); Monocytes % (A) 3 %; Neutrophils # (A) 14.9 k/uL (1.3-7.7); Neutrophils % (A) 87 %; Platelet Count 383 k/uL (150-450); RBC 4.85 m/uL (3.80-5.40); RDW 13.1 % (11.5-15.5); WBC 17.2 k/uL (3.8-10.6)
[2022-03-14 08:26] LABS: ALT 13 U/L (4-34); African American GFR (CKD) >90 (>60 ml/min/1.73 sqM); Albumin 4.3 g/dL (3.5-5.0); Amylase 53 U/L (30-110); Anion Gap 11 mmol/L; Blood Urea Nitrogen 8 mg/dL (7-17); Calcium 9.2 mg/dL (8.4-10.2); Carbon Dioxide 22 mmol/L (22-30); Chloride 107 mmol/L (98-107); Glucose 123 mg/dL (74-99); Lipase 59 U/L (23-300); Non-African American GFR(CKD) >90 (>60 ml/min/1.73 sqM); Sodium 140 mmol/L (137-145); Total Bilirubin 0.5 mg/dL (0.2-1.3); Total Protein 7.4 g/dL (6.3-8.2)
[2022-03-14 08:34] LABS: AST 24 U/L (14-36); Alkaline Phosphatase 105 U/L (38-126); Potassium 4.7 mmol/L (3.5-5.1)
--- NOTE | 2022-03-14 08:37 | ED ---
General Adult HPI - General Chief complaint: Abdominal Pain Stated complaint: Recheck abdominal pain Time Seen by Provider: 03/14/22 07:00 Source: patient, RN notes reviewed, old records reviewed Mode of arrival: ambulatory Limitations: no limitations - History of Present Illness Initial comments: This is a 41-year-old female presents emergency Department complaining of abdominal pain. Patient states she's here yesterday and was told she had diverticulitis. Patient states she took an antibiotic last night was unable take it today because she was so nauseous so much pain. Patient denies any fever or chills. Patient denies any vomiting. Patient denies any diarrhea. Patient states she's back because she cannot tolerate the pain at home. - Related Data Previous Rx's Medication Instructions Recorded Ciprofloxacin HCl [Cipro] 500 mg PO Q12HR #14 tablet 03/13/22 metroNIDAZOLE [Flagyl] 500 mg PO TID #21 tab 03/13/22 Allergies Allergy/AdvReac Type Severity Reaction Status Date / Time Penicillins Allergy Unknown Verified 03/14/22 08:28 Childhood Review of Systems ROS Statement: Those systems with pertinent positive or pertinent negative responses have been documented in the HPI. ROS Other: All systems not noted in ROS Statement are negative. Past Medical History Past Medical History: GERD/Reflux Additional Past Medical History / Comment(s): daily marijuana use, epigastric pain frequently, gets nauseated w/pain when it comes, slow heart rate normally, hx. colon polyp History of Any Multi-Drug Resistant Organisms: None Reported Past Surgical History: Cholecystectomy, Orthopedic Surgery, Tubal Ligation Additional Past Surgical History / Comment(s): reconstructive surg. left knee after fx., all teeth removed, colonoscopy Past Anesthesia/Blood Transfusion Reactions: Postoperative Nausea & Vomiting (PONV) Past Psychological History: No Psychological Hx Reported Smoking Status: Current every day smoker Past Alcohol Use History: None Reported Past Drug Use History: Marijuana - Past Family History Mother Additional Family Medical History / Comment(s): gall bladder removed, bleeding ulcer General Exam - General Exam Comments Initial Comments: GENERAL: Patient is well-developed and well-nourished. Patient is nontoxic and well- hydrated and is in moderate distress. ENT: Neck is soft and supple. No significant lymphadenopathy is noted. Oropharynx is clear. Moist mucous membranes. Neck has full range of motion without eliciting any pain. EYES: The sclera were anicteric and conjunctiva were pink and moist. Extraocular movements were intact and pupils were equal round and reactive to light. Eyelids were unremarkable. PULMONARY: Unlabored respirations. Good breath sounds bilaterally. No audible rales rhonchi or wheezing was noted. CARDIOVASCULAR: There is a regular rate and rhythm without any murmurs gallops or rubs. ABDOMEN: Mild mid abdominal tenderness no rebound noted SKIN: Skin is clear with no lesions or rashes and otherwise unremarkable. NEUROLOGIC: Patient is alert and oriented x3. Cranial nerves II through XII are grossly intact. Motor and sensory are also intact. Normal speech, volume and content. Symmetrical smile. MUSCULOSKELETAL: Normal extremities with adequate strength and full range of motion. LYMPHATICS: No significant lymphadenopathy is noted PSYCHIATRIC: Normal psychiatric evaluation. Limitations: no limitations Course Vital Signs 03/14/22 06:57 Temperature 97.7 F Pulse Rate 72 Respiratory 16 Rate Blood Pressure 155/101 O2 Sat by Pulse 98 Oximetry Medical Decision Making - Medical Decision Making I reviewed the CAT scan results from yesterday and it did show probable diverticulitis. Patient was in so much pain at this time I decided to admit the patient was started on Levaquin in the emergency room. - Lab Data Result diagrams: 03/14/22 07:46 03/14/22 07:46 Lab Results 03/14/22 03/14/22 03/14/22 Range/Units 07:46 07:46 07:46 WBC 17.2 H (3.8-10.6) k/uL RBC 4.85 (3.80-5.40) m/uL Hgb 15.0 (11.4-16.0) gm/dL Hct 49.4 H (34.0-46.0) % MCV 101.8 H (80.0-100.0) fL MCH 31.0 (25.0-35.0) pg MCHC 30.4 L (31.0-37.0) g/dL RDW 13.1 (11.5-15.5) % Plt Count 383 (150-450) k/uL MPV 7.1 Neutrophils % 87 % Lymphocytes % 6 % Monocytes % 3 % Eosinophils % 2 % Basophils % 0 % Neutrophils # 14.9 H (1.3-7.7) k/uL Lymphocytes # 1.1 (1.0-4.8) k/uL Monocytes # 0.6 (0-1.0) k/uL Eosinophils # 0.4 (0-0.7) k/uL Basophils # 0.0 (0-0.2) k/uL Macrocytosis Slight Sodium 140 (137-145) mmol/L Potassium 4.7 (3.5-5.1) mmol/L Chloride 107 (98-107) mmol/L Carbon Dioxide 22 (22-30) mmol/L Anion Gap 11 mmol/L BUN 8 (7-17) mg/dL Creatinine 0.73 (0.52-1.04) mg/dL Est GFR (CKD-EPI)AfAm >90 (>60 ml/min/1.73 sqM) Est GFR (CKD-EPI)NonAf >90 (>60 ml/min/1.73 sqM) Glucose 123 H (74-99) mg/dL Plasma Lactic Acid Wojciech 1.1 (0.7-2.0) mmol/L Calcium 9.2 (8.4-10.2) mg/dL Total Bilirubin 0.5 (0.2-1.3) mg/dL AST 24 (14-36) U/L ALT 13 (4-34) U/L Alkaline Phosphatase 105 (38-126) U/L Total Protein 7.4 (6.3-8.2) g/dL Albumin 4.3 (3.5-5.0) g/dL Amylase 53 (30-110) U/L Lipase 59 (23-300) U/L Disposition Clinical Impression: Diverticulitis Disposition: ADMITTED IP TO THIS [facility] Referrals: Tanmay Vail MD [Primary Care Provider] - 1-2 days Time of Disposition: 08:45
[2022-03-14] MEDS ORDERED: LEVOFLOXACIN 750MG-D5W PMX 750 MG in DEXTROSE/WATER 1 150ML.BAG IVPB STA (08:38)
[2022-03-14] MEDS ORDERED: ONDANSETRON 4 MG/2 ML VIAL IVP STA (08:53)
[2022-03-14] MEDS ORDERED: SODIUM CHLORIDE 0.9% 1,000 ML IV ONE (09:14)
[2022-03-14] MEDS ORDERED: MORPHINE SULFATE 4 MG/ML SYRINGE IVP STA (09:15)
[2022-03-14] MEDS ORDERED: MORPHINE SULFATE 2 MG/ML SYRINGE IVP PRN (09:15)
[2022-03-14] MEDS: ONDANSETRON 4 MG/2 ML VIAL IVP PRN ×3 (12:38→23:02)
[2022-03-14] MEDS ORDERED: ALPRAZolam 0.25 MG TAB PO PRN (13:20)
[2022-03-14] MEDS ORDERED: HYDROcodone/APAP 5-325MG 1 EACH TAB PO PRN (13:20)
[2022-03-14] MEDS: PANTOPRAZOLE 40 MG/10 ML VIAL IVP SCH ×2 (15:35→21:20)
[2022-03-14] MEDS: HEPARIN SODIUM,PORCINE/PF 5,000 UNIT/0.5 ML SYRINGE SQ SCH (21:20)
--- NOTE | 2022-03-14 23:45 | HP ---
HISTORY AND PHYSICAL CHIEF COMPLAINT: Abdominal pain. HISTORY OF PRESENT ILLNESS: This is a 41-year-old woman with a past medical history of GERD, history of cholecystectomy, and multiple other medical problems, presented yesterday with abdominal pain to the ER. The patient had abdominal CT scan, which was reviewed personally by me showed colonic diverticulosis with mild pericolonic inflammatory change of the descending colon. The patient was given antibiotic, but at home, the patient had increasing pain, and the patient came back to [facility] and admitted for further evaluation and treatment. There is no history of any fever, rigors, or chills at this time. PAST MEDICAL HISTORY: Reviewed and includes GERD and cholecystectomy. HOME MEDICATIONS: Again, reviewed and include Flagyl. Dose and rest of the medications were reviewed. ALLERGIES: Penicillin. FAMILY HISTORY: History of diabetes in the family. SOCIAL HISTORY: History of THC and smoking. REVIEW OF SYSTEMS: A 14-point review of systems is negative except mentioned earlier. PHYSICAL EXAMINATION: VITAL SIGNS: Pulse is 50, blood pressure 133/81, respirations 16. HEENT: Conjunctivae normal. NECK: No jugular venous distention. CARDIOVASCULAR: S1 and S2 muffled. RESPIRATORY: Diminished at the bases. No rhonchi. No crackles. ABDOMEN: Soft. Mild diffuse tenderness in the right side of the abdomen. No guarding. No rigidity. No masses palpable. LEGS: No edema. CENTRAL NERVOUS SYSTEM: No focal deficits. SKIN: No ulcer or rashes. JOINTS: No active deforming arthropathy. LABORATORY DATA: WBC 17.2. ASSESSMENT: 1. Severe abdominal pain with acute diverticulitis with failure of outpatient treatment. 2. History of cholecystectomy. 3. History of gastroesophageal reflux disease. 4. Multiple medical issues. RECOMMENDATIONS AND DISCUSSION: This is a 41-year-old woman, who presented with multiple complex medical issues. We will monitor the patient closely. We will initiate broad-spectrum IV antibiotics. Symptomatic treatment for treatment of above pain. Surgical evaluation. Guarded prognosis because of multiple complex medical issues. The patient might need endoscopies also. See orders for details. Further recommendations to follow. MMODL / IJN: [id number] /
[2022-03-15 06:35] LABS: Basophils # (A) 0.1 k/uL (0-0.2); Basophils % (A) 0 %; Eosinophils # (A) 0.1 k/uL (0-0.7); Eosinophils % (A) 1 %; HCT 40.3 % (34.0-46.0); HGB 12.9 gm/dL (11.4-16.0); Lymphocytes # (A) 1.8 k/uL (1.0-4.8); Lymphocytes % (A) 12 %; MCH 31.9 pg (25.0-35.0); MCHC 32.1 g/dL (31.0-37.0); MCV 99.5 fL (80.0-100.0); Mean Platelet Volume 7.7; Monocytes # (A) 0.8 k/uL (0-1.0); Monocytes % (A) 6 %; Neutrophils # (A) 11.6 k/uL (1.3-7.7); Neutrophils % (A) 80 %; Platelet Count 348 k/uL (150-450); RBC 4.05 m/uL (3.80-5.40); RDW 12.9 % (11.5-15.5); WBC 14.6 k/uL (3.8-10.6)
[2022-03-15] MEDS: NICOTINE 14MG/24HR PATCH TRANSDERM SCH (08:25)
[2022-03-15] MEDS: LEVOFLOXACIN 750MG-D5W PMX 750 MG in DEXTROSE/WATER 1 150ML.BAG IVPB SCH (08:29)
[2022-03-15] MEDS: HEPARIN SODIUM,PORCINE/PF 5,000 UNIT/0.5 ML SYRINGE SQ SCH ×2 (08:30→21:48)
[2022-03-15] MEDS: PANTOPRAZOLE 40 MG/10 ML VIAL IVP SCH ×2 (08:30→21:48)
[2022-03-15] MEDS: ONDANSETRON 4 MG/2 ML VIAL IVP PRN (09:12)
[2022-03-15 09:37] LABS: African American GFR (CKD) 124.7 (60.0-200.0); Anion Gap 13.2 mmol/L (10.00-18.00); Calcium 9.1 mg/dL (8.7-10.3); Carbon Dioxide 21.8 mmol/L (20.0-27.5); Non-African American GFR(CKD) 107.6 (60.0-200.0); Potassium 3.5 mmol/L (3.5-5.5)
[2022-03-15 11:01] LABS: Erythrocyte Sedimentation Rate 7 mm/hr (0-20)
--- NOTE | 2022-03-15 13:31 | P.GSCN ---
History of Present Illness Consult date: 03/15/22 History of present illness: CHIEF COMPLAINT: Abdominal pain HISTORY OF PRESENT ILLNESS: This is a 41-year-old female who presented to the hospital with complaints of left lower quadrant abdominal pain. She had been diagnosed with diverticulitis outpatient. She apparently on antibiotics. She reports increasing pain and nausea and unable to take the oral antibiotics. Therefore she came into the ER for further evaluation. She did have elevated white count. Computed tomography scan outpatient showed colonic diverticulosis with subtle mild paracolonic inflammatory changes of the descending colon suggested. Findings may represent a mild uncomplicated diverticulitis. Patient has never had diverticulitis in the past. Patient seen and examined with Dr. Pierre PAST MEDICAL HISTORY: GERD, daily marijuana use PAST SURGICAL HISTORY: Cholecystectomy and tubal ligation MEDICATIONS: See list. ALLERGIES: See list. SOCIAL HISTORY: No illicit drug use. REVIEW OF SYSTEMS: CONSTITUTIONAL: Denies fever or chills. HEENT: Denies blurred vision, vision changes, or eye pain. Denies hemoptysis CARDIOVASCULAR: Denies chest pain or pressure. RESPIRATORY: No shortness of breath. GASTROINTESTINAL: See HPI for pertinent findings HEMATOLOGIC: Denies bleeding disorders. GENITOURINARY: Denies any blood in urine or increased urinary frequency. SKIN: Denies pruitis. Denies rash. PHYSICAL EXAM: VITAL SIGNS: Reviewed GENERAL: Well-developed in no acute distress. HEENT: No sclera icterus. Extraocular movements grossly intact. Moist buccal mucosa. Head is atraumatic, normocephalic. No nasal drainage. ABDOMEN: Soft. Nondistended. Tenderness to palpation left lower quadrant NEUROLOGIC: Alert and oriented. Cranial nerves II through XII grossly intact. LABORATORY DATA: WBC 17.2 down to 14.6 Hgb 15 down to 12.9 platelets 348 Sodium 137 potassium 3.5 creatinine 0.7 IMAGING: CAT scan as stated above ASSESSMENT: 1. Acute diverticulitis of descending colon PLAN: -Start clear liquid diet -Continue antibiotics -Continue IV fluids -Continue pain medication as needed -Continue supportive care -Repeat labs in a.m. -Possible discharge tomorrow if patient continues to show improvement Thank you for this consultation Physician [employer] Lab[employer] note has been reviewed by physician. Signing provider agrees with the documented findings, assessment, and plan of care. Past Medical History Past Medical History: GERD/Reflux Additional Past Medical History / Comment(s): Frequent epigastric/abdominal pain, nausea if pain gets too severe, gastritis, diverticulosis, benign colon polyps, bradycardia History of Any Multi-Drug Resistant Organisms: None Reported Past Surgical History: Cholecystectomy, Orthopedic Surgery, Tubal Ligation Additional Past Surgical History / Comment(s): reconstructive surg. left knee after fx., all teeth removed, EGD, colonoscopy Past Anesthesia/Blood Transfusion Reactions: Postoperative Nausea & Vomiting (PONV) Smoking Status: Current every day smoker - Past Family History Mother Additional Family Medical History / Comment(s): gall bladder removed, bleeding ulcer Father Family Medical History: Diabetes Mellitus Medications and Allergies Home Medications Medication Instructions Recorded Confirmed Type Ciprofloxacin HCl [Cipro] 500 mg PO Q12HR #14 tablet 03/13/22 03/14/22 Rx metroNIDAZOLE [Flagyl] 500 mg PO TID #21 tab 03/13/22 03/14/22 Rx Allergies Allergy/AdvReac Type Severity Reaction Status Date / Time Penicillins Allergy Unknown Verified 03/14/22 08:28 Childhood Surgical - Exam Vital Signs Temp Pulse Resp BP Pulse Ox 97.7 F 72 16 155/101 98 03/14/22 06:57 03/14/22 06:57 03/14/22 06:57 03/14/22 06:57 03/14/22 06:57 Results - Labs 03/15/22 05:52 03/15/22 05:52 Abnormal Lab Results - Last 24 Hours (Table) 03/15/22 03/15/22 Range/Units 05:52 05:52 WBC 14.6 H (3.8-10.6) k/uL Neutrophils # 11.6 H (1.3-7.7) k/uL BUN 7.0 L (9.0-27.0) mg/dL BUN/Creatinine Ratio 10.00 L (12.00-20.00) Ratio Diabetes panel 03/15/22 Range/Units 05:52 Sodium 137 (135-145) mmol/L Potassium 3.5 (3.5-5.5) mmol/L Chloride 102 (96-109) mmol/L Carbon Dioxide 21.8 (20.0-27.5) mmol/L BUN 7.0 L (9.0-27.0) mg/dL Creatinine 0.7 (0.6-1.5) mg/dL Glucose 108 (70-110) mg/dL Calcium 9.1 (8.7-10.3) mg/dL Calcium panel 03/15/22 Range/Units 05:52 Calcium 9.1 (8.7-10.3) mg/dL Pituitary panel 03/15/22 Range/Units 05:52 Sodium 137 (135-145) mmol/L Potassium 3.5 (3.5-5.5) mmol/L Chloride 102 (96-109) mmol/L Carbon Dioxide 21.8 (20.0-27.5) mmol/L BUN 7.0 L (9.0-27.0) mg/dL Creatinine 0.7 (0.6-1.5) mg/dL Glucose 108 (70-110) mg/dL Calcium 9.1 (8.7-10.3) mg/dL Adrenal panel 03/15/22 Range/Units 05:52 Sodium 137 (135-145) mmol/L Potassium 3.5 (3.5-5.5) mmol/L Chloride 102 (96-109) mmol/L Carbon Dioxide 21.8 (20.0-27.5) mmol/L BUN 7.0 L (9.0-27.0) mg/dL Creatinine 0.7 (0.6-1.5) mg/dL Glucose 108 (70-110) mg/dL Calcium 9.1 (8.7-10.3) mg/dL
[2022-03-15 15:28] VITALS: BMI 22.1
--- NOTE | 2022-03-15 16:33 | P.PN ---
Subjective Progress Note Date: 03/15/22 This is a 41-year-old female who was recently admitted with severe abdominal pain and CT abdomen suggesting colonic diverticulitis with mild pericolonic inflammatory changes of the descending colon and is being closely monitored. General surgery following an patient is maintained on antibiotics and hydration. Patient is currently afebrile denies chest pain or shortness of breath. Patient reports her abdominal pain continues although his improved from yesterday. Patient has been started on ice chips and clear liquids and tolerating those far and denying nausea or vomiting although reports she is having continued loose stools. The PPC is trending down at 14.6. Other labs reviewed and within normal limits. Cultures have been negative. No plans for surgical intervention and would like to continue slowly with clear liquids with follow-up labs and continued IV antibiotic therapy. Review of systems: Constitutional: No reports of fatigue, fever, or chills Cardiovascular: No reports of chest pain or palpitations Respiratory: No reports of shortness of breath or cough GI: No reports of nausea, no reports of vomiting, reports continued loose stools, with some mild abdominal discomfort : No reports of dysuria or retention Neurovascular: No reports of generalized weakness All medications have been reviewed Active Medications Hydrocodone Bitart/Acetaminophen (Hydrocodone/Apap 5-325mg 1 Each Tab) 1 each PO Q6HR PRN PRN Reason: Pain Last Admin: 03/14/22 16:53 Dose: 1 each Alprazolam (Alprazolam 0.25 Mg Tab) 0.25 mg PO TID PRN PRN Reason: Anxiety Heparin Sodium (Porcine) (Heparin Sodium,Porcine/Pf 5,000 Unit/0.5 Ml Syringe) 5,000 unit SQ Q12HR BOOKER Last Admin: 03/15/22 08:30 Dose: 5,000 unit Levofloxacin 750 mg/ IV (Solution) 150 mls @ 100 mls/hr IVPB Q24H BOOKER; Protocol Last Admin: 03/15/22 08:29 Dose: 100 mls/hr Sodium Chloride (Saline 0.9%) 1,000 mls @ 75 mls/hr IV .[id number] BOOKER Nicotine (Nicotine 14mg/24hr Patch) 1 patch TRANSDERM DAILY BOOKER Last Admin: 03/15/22 08:25 Dose: Not Given Ondansetron HCl (Ondansetron 4 Mg/2 Ml Vial) 4 mg IVP Q6HR PRN PRN Reason: Nausea And Vomiting Last Admin: 03/15/22 09:12 Dose: 4 mg Pantoprazole Sodium (Pantoprazole 40 Mg/10 Ml Vial) 40 mg IVP BID BOOKER Last Admin: 03/15/22 08:30 Dose: 40 mg PHYSICAL EXAMINATION: GENERAL: The patient is alert and oriented x4, Well developed, well nourished. HEENT: Pupils are round and equally reacting to light. EOMI. no scleral icterus. No conjunctival pallor. Normocephalic, atraumatic. No pharyngeal erythema. No thyromegaly. CARDIOVASCULAR: S1 and S2 muffled PULMONARY: diminished breath sounds bilaterally with no wheezing or rhonchi noted. ABDOMEN: soft. Nontender on exam. non-distended, normoactive bowel sounds. No palpable organomegaly. MUSCULOSKELETAL: No joint swelling or deformity. EXTREMITIES: No cyanosis, clubbing, or pedal edema. NEUROLOGICAL: Gross neurological examination did not reveal any focal deficits. SKIN: No rashes. Assessment: Severe abdominal pain with acute diverticulitis with failure of outpatient treatment History of cholecystectomy next line history of gastroesophageal reflux disease Multiple Medical issues GI prophylaxis DVT prophylaxis Full code Plan: Recommend to continue with current medications and management with general surgery services following. patient is continued on clear liquids and IV antibiotics in the form of Levaquin and continued pain management. Labs review ed and white blood count is trending down. Patient is afebrile and reports some improvement in her abdominal pain although continues to have loose stools immediately after taking in clear liquids. Will follow-up with repeat labs in a.m. and continue to monitor closely and continue with pain management as needed. Encouraged increase activity as tolerated and will follow-up with patient in the a.m. Encourage the patient to limit herself to just ice chips if abdominal pain intensifies. Will follow up with general surgery recommendations. The impression and plan of care has been dictated by Macarena Ovalle, nurse practitioner as directed. Dr. Oswaldo ROBLEDO I have performed a history and examination and MDM of this patient, discussed the same with the dictator, and agree with the dictator's assessment and plan as written ,documented as a scribe. Based on total visit time, I have performed more than 50% of the visit. Any additional findings or plans will be noted. Objective - Vital Signs Vital signs: Vital Signs Temp 99.1 F 03/15/22 13:00 Pulse 55 L 03/15/22 13:00 Resp 18 03/15/22 13:00 BP 102/62 03/15/22 13:00 Pulse Ox 96 03/15/22 13:00 FiO2 Intake & Output 03/14/22 03/15/22 03/15/22 18:59 06:59 18:59 Intake Total 75 900 360 Balance 75 900 360 Weight 56.699 kg 56.699 kg Intake: Intake, IV Titration 75 900 Amount Sodium Chloride 0.9% 1, 75 900 000 ml @ 75 mls/hr IV . [id number] Rx#:[id number] Oral 360 Other: Voiding Method Toilet - Labs CBC & Chem 7: 03/15/22 05:52 03/15/22 05:52 Labs: Abnormal Lab Results - Last 24 Hours (Table) 03/15/22 03/15/22 Range/Units 05:52 05:52 WBC 14.6 H (3.8-10.6) k/uL Neutrophils # 11.6 H (1.3-7.7) k/uL BUN 7.0 L (9.0-27.0) mg/dL BUN/Creatinine Ratio 10.00 L (12.00-20.00) Ratio Microbiology - Last 24 Hours (Table) 03/14/22 09:00 Blood Culture - Preliminary Blood No Growth after 24 hours 03/14/22 09:15 Blood Culture - Preliminary Blood No Growth after 24 hours
[2022-03-15] MEDS: SODIUM CHLORIDE 0.9% 1,000 ML IV SCH (16:38)
[2022-03-16] MEDS: SODIUM CHLORIDE 0.9% 1,000 ML IV SCH (02:39)
[2022-03-16] MEDS: PANTOPRAZOLE 40 MG/10 ML VIAL IVP SCH (08:10)
[2022-03-16] MEDS: LEVOFLOXACIN 750MG-D5W PMX 750 MG in DEXTROSE/WATER 1 150ML.BAG IVPB SCH (08:11)
[2022-03-16] MEDS: NICOTINE 14MG/24HR PATCH TRANSDERM SCH (08:11)
[2022-03-16] MEDS: HEPARIN SODIUM,PORCINE/PF 5,000 UNIT/0.5 ML SYRINGE SQ SCH (08:17)
[2022-03-16 09:40] LABS: Basophils # (A) 0.04 X 10*3/uL (0.00-0.10); Basophils % (A) 0.5 %; Eosinophils # (A) 0.16 X 10*3/uL (0.04-0.35); Eosinophils % (A) 2.2 %; HCT 35.8 % (37.2-46.3); HGB 11.8 g/dL (12.0-15.0); Immature Grans, Automated 0.3 %; Lymphocytes # (A) 2.88 X 10*3/uL (0.90-5.00); MCH 32.3 pg (27.0-32.0); MCV 98.1 fL (80.0-97.0); Mean Platelet Volume 10.5 fL (9.5-12.2); Monocytes # (A) 0.64 X 10*3/uL (0.20-1.00); Monocytes % (A) 8.7 %; NRBC Per 100 WBC 0 /100 WBCS (0.0-0.0); Neutrophils # (A) 3.65 X 10*3/uL (1.80-7.70); Neutrophils % (A) 49.3 %; Platelet Count 296 X 10*3/uL (140-440); RBC 3.65 X 10*6/uL (4.10-5.20); RDW 13.6 % (11.5-14.5); WBC 7.39 X 10*3/uL (4.50-10.00)
[2022-03-16 09:56] LABS: African American GFR (CKD) 124.7 (60.0-200.0); Anion Gap 6.7 mmol/L (10.00-18.00); BUN/Creat Ratio 6.86 Ratio (12.00-20.00); Blood Urea Nitrogen 4.8 mg/dL (9.0-27.0); Calcium 8.5 mg/dL (8.7-10.3); Carbon Dioxide 26.3 mmol/L (20.0-27.5); Non-African American GFR(CKD) 107.6 (60.0-200.0); Potassium 3.7 mmol/L (3.5-5.5)
--- NOTE | 2022-03-16 12:54 | P.PN ---
Subjective Progress Note Date: 03/16/22 CHIEF COMPLAINT: Diverticulitis HISTORY OF PRESENT ILLNESS: Patient reports improvement in abdominal pain. She reports that the left sided abdominal pain has resolved. She has discomfort in the lower right. She she denies any vomiting. She had nausea earlier this morning that has now resolved. And she had one episode of diarrhea. No blood in her stools. Currently on a clear liquid diet. Afebrile. WBC has normalized from 14.6-7.39 Patient seen and examined with Dr. elise PHYSICaL EXAM: VITAL SIGNS: Reviewed. GENERAL: Well-developed in no acute distress. HEENT: No sclera icterus. Extraocular movements grossly intact. Moist buccal mucosa. Head is atraumatic, normocephalic. ABDOMEN: Soft. Nondistended. Nontender on exam NEUROLOGIC: Alert and oriented. Cranial nerves II through XII grossly intact. ASSESSMENT: 1. Acute diverticulitis of descending colon PLAN: -Advance diet to full liquids -Patient can be discharged home today if tolerating full liquids -Recommend that she continues for liquids until seen by surgeon in the office -Discharge home with oral antibiotics to complete treatment for diverticulitis Physician Salesforce Trainer note has been reviewed by physician. Signing provider agrees with the documented findings, assessment, and plan of care. Objective - Vital Signs Vital signs: Vital Signs Temp 98 F 03/16/22 08:00 Pulse 53 L 03/16/22 08:00 Resp 18 03/16/22 08:11 BP 99/60 03/16/22 08:00 Pulse Ox 98 03/16/22 08:00 FiO2 Intake & Output 03/15/22 03/16/22 03/16/22 18:59 06:59 18:59 Intake Total 360 Balance 360 Weight 56.699 kg Intake: Oral 360 Other: Voiding Method Toilet Toilet # Voids 2 - Labs CBC & Chem 7: 03/16/22 04:37 03/16/22 04:40 Labs: Abnormal Lab Results - Last 24 Hours (Table) 03/16/22 03/16/22 Range/Units 04:37 04:40 RBC 3.65 L (4.10-5.20) X 10*6/uL Hgb 11.8 L (12.0-15.0) g/dL Hct 35.8 L (37.2-46.3) % MCV 98.1 H (80.0-97.0) fL MCH 32.3 H (27.0-32.0) pg Anion Gap 6.70 L (10.00-18.00) mmol/L BUN 4.8 L (9.0-27.0) mg/dL BUN/Creatinine Ratio 6.86 L (12.00-20.00) Ratio Calcium 8.5 L (8.7-10.3) mg/dL Microbiology - Last 24 Hours (Table) 03/14/22 09:00 Blood Culture - Preliminary Blood No Growth after 48 hours 03/14/22 09:15 Blood Culture - Preliminary Blood No Growth after 48 hours
[2022-03-16 14:42] VITALS: BP 113/67; PULSE 110; RESP 16; TEMP 98.1
--- NOTE | 2022-03-17 16:08 | P.DS ---
Providers Date of admission: 03/14/22 09:14 Expected date of discharge: 03/16/22 Attending physician: Kade Da Silva MD Consults: 03/14/22 13:16 Consult Physician Urgent Consulting Provider: Toni Pierre Consult Reason/Comments: diverticulitis Do you want consulting provider notified?: Yes Primary care physician: Tanmay Vail [place] [facility] Course: Final diagnosis Severe abdominal pain with acute diverticulitis with failure of outpatient treatment History of cholecystectomy next line history of gastroesophageal reflux disease Multiple Medical issues GI prophylaxis DVT prophylaxis Full code Discharge disposition Patient is being discharged in a stable condition with guarded prognosis to home. Patient will follow-up with primary care provider Dr. Tanmay Vail. Patient is also to follow-up with general surgery in 1 week. Patient will continue on oral Levaquin 750 mg daily for the next 5 days along with oral Protonix. Total time taken is greater than 35 minutes. Hospital course This is a 41-year-old female who was recently admitted with increased abdominal pain and was being closely monitored. CT was suggested of chronic diverticulitis with mild pericolonic inflammatory changes in the descending colon. Patient was nothing by mouth and maintained on pain management along with IV biotics in the form of Levaquin and general surgery following recommending close outpatient follow-up. Patient abdominal pain improved and recommend continue with full liquids until surgery follow-up. Patient will continue on oral Levaquin 750 mg daily for the next 1 week and oral Protonix. Currently no reports of chest pain, shortness of breath, or palpitations. Patient is afebrile. Patient reports to feeling well and would like to go home. Patient is tolerating full liquid diet with no reports of nausea or vomiting noted. Patient will be discharged home today. Guarded prognosis. Physical exam: Gen: This is a 41-year-old male awake, alert and oriented 3, thin built HEENT: Head is atraumatic, normocephalic. Pupils equal, round. Sclerae is anicteric. NECK: Supple. No JVD. No lymphadenopathy. No thyromegaly. LUNGS: Diminished breath sounds bilaterally with no wheezing or rhonchi. No intercostal retractions. HEART: S1, S2 are muffled ABDOMEN: Soft. Bowel sounds are present. No masses. No tenderness. EXTREMITIES: No pedal edema. No calf tenderness. NEUROLOGICAL: Patient is awake, oriented 3, no focal deficits noted. Please refer to medication reconciliation sheet for a list of medications. The impression and plan of care has been dictated by Macarena Ovalle, Nurse Practitioner as directed. Dr. Oswaldo MD I have performed a history and examination and MDM of this patient, discussed the same with the dictator, and agree with the dictator's assessment and plan as written ,documented as a scribe. Based on total visit time, I have performed more than 50% of the visit. Discharge disposition Patient Condition at Discharge: Stable Plan - Discharge Summary Discharge Rx Participant: No New Discharge Prescriptions: New Levofloxacin [Levaquin] 750 mg PO DAILY 5 Days #5 tab Pantoprazole Sodium [Protonix] 40 mg PO DAILY #30 tab Discontinued metroNIDAZOLE [Flagyl] 500 mg PO TID #21 tab Ciprofloxacin HCl [Cipro] 500 mg PO Q12HR #14 tablet Discharge Medication List Levofloxacin [Levaquin] 750 mg PO DAILY 5 Days #5 tab 03/16/22 [Rx] Pantoprazole Sodium [Protonix] 40 mg PO DAILY #30 tab 03/16/22 [Rx] Follow up Appointment(s)/Referral(s): Tanmay Vail MD [Primary Care Provider] - 1-2 days Toni Pierre MD [STAFF PHYSICIAN] - 1 Week Patient Instructions/Handouts: Diverticulitis (DC) Activity/Diet/Wound Care/Special Instructions: Continue full liquid diet until seen by surgeon in office Discharge/Stand Alone Forms: Work/Release Restrictions Form Discharge Disposition: HOME SELF-CARE
== END 2022-03-16 16:56 | disposition home or self-care (01) ==
LOC: EC 06:34 → OBSVTOIN 09:14 → 4SSUR 09:14 → INTOOBSV 09:14 → 5NMEDONC 16:51 → 6NMEDSUR 03-15 11:07 → UNDODISIN 03-16 16:56
PROVIDERS: ADMIT Internal Medicine; ATTEND Internal Medicine
DX: K57.32 Diverticulitis of large intestine without perforation or abscess without bleeding (principal); K21.9 Gastro-esophageal reflux disease without esophagitis; F17.200 Nicotine dependence, unspecified, uncomplicated; F12.90 Cannabis use, unspecified, uncomplicated; K57.30 Diverticulosis of large intestine without perforation or abscess without bleeding; Z98.51 Tubal ligation status; Z88.0 Allergy status to penicillin; Z90.49 Acquired absence of other specified parts of digestive tract; Z83.3 Family history of diabetes mellitus; Z83.79 Family history of other diseases of the digestive system; Z79.899 Other long term (current) drug therapy
CPT/HCPCS: 96376 ×4; 96372 ×3; 96365 ×2; 96366 ×3; 96361; 96375; 99284; 36415; 80053; 80048 ×2; 85652; 82150; 83605; 83690; 85025 ×3; 86140; 87040; G0378 ×3; J2270 ×2; J2405 ×2; J1956 ×3; J1885; C9113 ×3; J1170; J1644 ×3

== ENCOUNTER 2022-04-20 08:59 | Day surgery (SDC) | payer BC ==
[2022-04-18 16:00] VITALS: BMI 22.6
[~2022-04-20 08:59] MED LIST changes: +LIDOCAINE 1% (10MG/ML) FOR IV START INTRADERMA PRN
[2022-04-20 09:44] VITALS: TEMP 97.9
[2022-04-20] MEDS ORDERED: PROPOFOL 10 MG/ML 20 ML VIAL IV ONE (10:09)
--- NOTE | 2022-04-20 10:10 | P.GSHP ---
History of Present Illness H&P Date: 04/20/22 Chief Complaint: Diverticulitis This a 41-year-old female who presents today for colonoscopy. Patient appears history of diverticulitis. Past Medical History Past Medical History: GERD/Reflux Additional Past Medical History / Comment(s): Frequent epigastric/abdominal pain, nausea if pain gets too severe, gastritis, diverticulosis, benign colon polyps, bradycardia History of Any Multi-Drug Resistant Organisms: None Reported Past Surgical History: Cholecystectomy, Orthopedic Surgery, Tubal Ligation Additional Past Surgical History / Comment(s): reconstructive surg. left knee after fx., all teeth removed, EGD, colonoscopy, [facility] Past Anesthesia/Blood Transfusion Reactions: Postoperative Nausea & Vomiting (PONV) Smoking Status: Current every day smoker - Past Family History Mother Additional Family Medical History / Comment(s): gall bladder removed, bleeding ulcer Father Family Medical History: Diabetes Mellitus Medications and Allergies Home Medications Medication Instructions Recorded Confirmed Type Pantoprazole Sodium [Protonix] 40 mg PO DAILY #30 tab 03/16/22 04/20/22 Rx Dicyclomine [Bentyl] 20 mg PO TID 04/18/22 04/20/22 History Allergies Allergy/AdvReac Type Severity Reaction Status Date / Time Penicillins Allergy Unknown Verified 04/20/22 09:44 Childhood Surgical - Exam Vital Signs Temp Pulse Resp BP Pulse Ox 97.9 F 83 18 113/74 100 04/20/22 09:44 04/20/22 09:44 04/20/22 09:44 04/20/22 09:44 04/20/22 09:44 - General well developed, well nourished, no distress - Eyes PERRL - ENT normal pinna - Neck no masses - Respiratory normal expansion - Cardiovascular Rhythm: regular - Abdomen Abdomen: soft, non tender Assessment and Plan Assessment: Diverticulitis. We will perform colonoscopy
--- NOTE | 2022-04-20 10:24 | P.OP ---
Date of Procedure: 04/20/22 Preoperative Diagnosis: Diverticulitis Postoperative Diagnosis: Diverticulosis Procedure(s) Performed: Colonoscopy Anesthesia: MAC Surgeon: Toni Pierre Pathology: none sent Condition: stable Disposition: PACU Description of Procedure: The patient's placed on the endoscopy table in the lateral position. She received IV sedation. Digital rectal exam was performed which revealed no abnormalities. The flexible colonoscope was then placed patient anus and passed throughout the entire colon. The ileocecal valve was visualized. The cecum, ascending and transverse colon appeared normal. In the descending and sigmoid colon there were diverticular changes. There is no evidence of diverticulitis. The scope was then brought back the rectum and this appeared normal. The scope was withdrawn for patient.
[2022-04-20 10:29] VITALS: RESP 16
[2022-04-20 10:43] VITALS: BP 112/72; PULSE 60
== END 2022-04-20 11:26 | disposition home or self-care (01) ==
LOC: ORWHC2ENDO 08:59
PROVIDERS: ATTEND Surgery
DX: K57.30 Diverticulosis of large intestine without perforation or abscess without bleeding (principal); K21.9 Gastro-esophageal reflux disease without esophagitis; Z86.010 Personal history of colon polyps; R00.1 Bradycardia, unspecified; F32.A Depression, unspecified; Z90.49 Acquired absence of other specified parts of digestive tract; Z98.51 Tubal ligation status; Z98.890 Other specified postprocedural states; F17.200 Nicotine dependence, unspecified, uncomplicated; Z83.3 Family history of diabetes mellitus; Z84.89 Family history of other specified conditions; Z79.899 Other long term (current) drug therapy; Z88.0 Allergy status to penicillin
CPT/HCPCS: 81025; 45378; J2704

== ENCOUNTER 2022-11-20 06:26 | Observation (INO) | payer BC ==
[2022-11-20] MEDS ORDERED: SODIUM CHLORIDE 0.9% 2,000 ML IV STA (07:12)
[2022-11-20] MEDS ORDERED: ONDANSETRON 4 MG/2 ML VIAL IVP STA ×2 (07:12→10:31)
[2022-11-20] MEDS ORDERED: KETOROLAC 15 MG/ML 1 ML VIAL IVP STA ×2 (07:12→10:31)
[2022-11-20] MEDS ORDERED: HYDROmorphone 0.5 MG/0.5 ML SYRINGE IVP STA ×3 (07:15→11:07)
[2022-11-20 07:29] LABS: Basophils % (A) 0 %; Eosinophils # (A) 0.7 k/uL (0-0.7); Eosinophils % (A) 4 %; HCT 45.1 % (34.0-46.0); HGB 14.9 gm/dL (11.4-16.0); Lymphocytes # (A) 2.5 k/uL (1.0-4.8); Lymphocytes % (A) 16 %; MCH 32.1 pg (25.0-35.0); MCV 97.3 fL (80.0-100.0); Mean Platelet Volume 7.7; Monocytes # (A) 0.6 k/uL (0-1.0); Monocytes % (A) 4 %; Neutrophils # (A) 11.6 k/uL (1.3-7.7); Neutrophils % (A) 75 %; Platelet Count 353 k/uL (150-450); RBC 4.64 m/uL (3.80-5.40); RDW 12.9 % (11.5-15.5); WBC 15.6 k/uL (3.8-10.6)
[2022-11-20 07:34] LABS: ALT 18 U/L (4-34); AST 19 U/L (14-36); African American GFR (CKD) >90 (>60 ml/min/1.73 sqM); Albumin 4.4 g/dL (3.5-5.0); Alkaline Phosphatase 105 U/L (38-126); Anion Gap 11 mmol/L; Blood Urea Nitrogen 9 mg/dL (7-17); Calcium 9.2 mg/dL (8.4-10.2); Carbon Dioxide 22 mmol/L (22-30); Chloride 106 mmol/L (98-107); Glucose 105 mg/dL (74-99); Lipase 78 U/L (23-300); Non-African American GFR(CKD) >90 (>60 ml/min/1.73 sqM); Potassium 4.4 mmol/L (3.5-5.1); Sodium 139 mmol/L (137-145); Total Bilirubin 0.4 mg/dL (0.2-1.3); Total Protein 7.3 g/dL (6.3-8.2)
--- NOTE | 2022-11-20 07:49 | ED ---
Abdominal Pain HPI - General Chief Complaint: Abdominal Pain Stated Complaint: ABD PAIN Time Seen by Provider: 11/20/22 06:41 Source: patient, RN notes reviewed Mode of arrival: ambulatory Limitations: no limitations - History of Present Illness Initial Comments: This a 42-year-old female presents emergency Department chief complaint of abdominal pain. This is an ongoing issue and which she is been followed by GI, surgery. Patient states that she requires second one year ago. Patient states symptoms are worsened after her cholecystectomy. She has had EGD, colonoscopy with no acute findings. 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 Patient has no complaints of dysuria no fevers or chills states that she cannot hold anything down this morning which made her present to the emergency Department - Related Data Home Medications Medication Instructions Recorded Confirmed Citalopram Hydrobromide [CeleXA] 20 mg PO DAILY 11/20/22 11/20/22 Cyproheptadine [Cyproheptadine HCl] 4 mg PO BID 11/20/22 11/20/22 Dicyclomine [Bentyl] 10 mg PO TID PRN 11/20/22 11/20/22 Ondansetron [Zofran] 4 mg PO QID PRN 11/20/22 11/20/22 Allergies Allergy/AdvReac Type Severity Reaction Status Date / Time Penicillins Allergy Unknown Verified 11/20/22 10:49 Childhood Review of Systems ROS Statement: Those systems with pertinent positive or pertinent negative responses have been documented in the HPI. ROS Other: All systems not noted in ROS Statement are negative. Past Medical History Past Medical History: GERD/Reflux Additional Past Medical History / Comment(s): Frequent epigastric/abdominal pain, nausea if pain gets too severe, gastritis, diverticulosis, benign colon polyps, bradycardia History of Any Multi-Drug Resistant Organisms: None Reported Past Surgical History: Cholecystectomy, Orthopedic Surgery, Tubal Ligation Additional Past Surgical History / Comment(s): reconstructive surg. left knee af ter fx., all teeth removed, EGD, colonoscopy, [facility] Past Anesthesia/Blood Transfusion Reactions: Postoperative Nausea & Vomiting (PONV) Past Psychological History: Depression Smoking Status: Current every day smoker Past Alcohol Use History: None Reported Past Drug Use History: Marijuana - Past Family History Mother Additional Family Medical History / Comment(s): gall bladder removed, bleeding ulcer Father Family Medical History: Diabetes Mellitus General Exam Limitations: no limitations General appearance: alert, in no apparent distress Head exam: Present: atraumatic, normocephalic, normal inspection Eye exam: Present: normal appearance, PERRL, EOMI. Absent: scleral icterus, conjunctival injection, periorbital swelling Neck exam: Present: normal inspection, full ROM. Absent: tenderness, meningismus, lymphadenopathy Respiratory exam: Present: normal lung sounds bilaterally. Absent: respiratory distress, wheezes, rales, rhonchi, stridor Cardiovascular Exam: Present: regular rate, normal rhythm, normal heart sounds. Absent: systolic murmur, diastolic murmur, rubs, gallop, clicks GI/Abdominal exam: Present: soft, tenderness, normal bowel sounds. Absent: distended, guarding, rebound, rigid Back exam: Present: CVA tenderness (R). Absent: CVA tenderness (L) Neurological exam: Present: alert, oriented X3 Skin exam: Present: warm, dry, intact, normal color. Absent: rash Course Vital Signs 11/20/22 11/20/22 11/20/22 06:34 09:26 11:51 Temperature 97.7 F Pulse Rate 68 61 77 Respiratory 19 16 18 Rate Blood Pressure 176/87 152/94 152/92 O2 Sat by Pulse 99 99 98 Oximetry Medical Decision Making - Medical Decision Making Was pt. sent in by a medical professional or institution (, PA, SQL SERVER DBA DEVELOPER, urgent care, hospital, or detention...) When possible be specific @ -No Did you speak to anyone other than the patient for history (EMS, parent, family, police, friend...)? What history was obtained from this source @ - room providing primary history Did you review nursing and triage notes (agree or disagree)? Why? @ -I reviewed and agree with nursing and triage notes Were old charts reviewed (outside hosp., previous admission, EMS record, old EKG, old radiological studies, urgent care reports/EKG's, detention records)? Report findings @ -Reviewed prior laboratory studies, surgery studies, CT Differential Diagnosis (chest pain, altered mental status, abdominal pain women, abdominal pain men, vaginal bleeding, weakness, fever, dyspnea, syncope, headache, dizziness, GI bleed, back pain, seizure, CVA, palpatations, mental health, musculoskeletal)? @ -Differential Abdominal Pain Women: Appendicitis, Cholecystitis, diverticulosis, ischemic bowel, pancreatitis, hepatitis, UTI, gastroenteritis, AAA, incarcerated hernia, bowel obstruction, constipation, inflammatory bowel, hepatitis, peptic ulcer disease, splenic infarction, perforated viscus, vulvitis, ovarian torsion, PID, kidney stone, placenta abruption, this is not meant to be an all-inclusive listble EKG interpreted by me (3pts min.). @ -None X-rays interpreted by me (1pt min.). @ -None done CT interpreted by me (1pt min.). @ -CT and pelvis shows diverticulosis no acute process U/S interpreted by me (1pt. min.). @ -None done What testing was considered but not performed or refused? (CT, X-rays, U/S, labs)? Why? @ -None What meds were considered but not given or refused? Why? @ -None Did you discuss the management of the patient with other professionals (professionals i.e. , PA, SQL SERVER DBA DEVELOPER, lab, RT, psych nurse, social services aide, finish cleaner, teacher, chief credit officer, director case management)? Give summary @ -[Discussed the case with Dr. De Leon and Dr. Pierre who recommended patient be admitted for IV hydration, further evaluation Was smoking cessation discussed for >3mins.? @ -No Was critical care preformed (if so, how long)? @ -No Were there social determinants of health that impacted care today? How? (Homelessness, low income, unemployed, alcoholism, drug addiction, transportation, low edu. Level, literacy, decrease access to med. care, custodial, rehab)? @ -No Was there de-escalation of care discussed even if they declined (Discuss DNR or withdrawal of care, Hospice)? DNR status @ -No What co-morbidities impacted this encounter? (DM, HTN, Smoking, COPD, CAD, Cancer, CVA, ARF, Chemo, Hep., AIDS, mental health diagnosis, sleep apnea, morbid obesity)? @ -None Was patient admitted / discharged? Hospital course, mention meds given and route, prescriptions, significant lab abnormalities, going to OR and other pertinent info. @ -Admitted patient has had intractable nausea vomiting, abdominal pain with no acute findings. Patient unable tolerate oral intake she said persistent vomiting even after multiple rounds of antiemetics will be admitted for further monitoring and evaluation Undiagnosed new problem with uncertain prognosis? @ -No Drug Therapy requiring intensive monitoring for toxicity (Heparin, Nitro, Insulin, Cardizem)? @ -No Were any procedures done? @ -No Diagnosis/symptom? @ -[Intractable nausea vomiting Acute, or Chronic, or Acute on Chronic? @ -Acute Uncomplicated (without systemic symptoms) or Complicated (systemic symptoms)? @ -Uncomplicated Side effects of treatment? @ -No Exacerbation, Progression, or Severe Exacerbation? @ -No Poses a threat to life or bodily function? How? (Chest pain, USA, AR, pneumonia, PE, COPD, DKA, ARF, appy, cholecystitis, CVA, Diverticulitis, Homicidal, Suicidal, threat to staff... and all critical care pts) @ -No - Lab Data Result diagrams: 11/20/22 07:23 11/20/22 07:23 Lab Results 11/20/22 11/20/22 11/20/22 Range/Units 07:23 07:23 07:23 WBC 15.6 H (3.8-10.6) k/uL RBC 4.64 (3.80-5.40) m/uL Hgb 14.9 (11.4-16.0) gm/dL Hct 45.1 (34.0-46.0) % MCV 97.3 (80.0-100.0) fL MCH 32.1 (25.0-35.0) pg MCHC 33.0 (31.0-37.0) g/dL RDW 12.9 (11.5-15.5) % Plt Count 353 (150-450) k/uL MPV 7.7 Neutrophils % 75 % Lymphocytes % 16 % Monocytes % 4 % Eosinophils % 4 % Basophils % 0 % Neutrophils # 11.6 H (1.3-7.7) k/uL Lymphocytes # 2.5 (1.0-4.8) k/uL Monocytes # 0.6 (0-1.0) k/uL Eosinophils # 0.7 (0-0.7) k/uL Basophils # 0.0 (0-0.2) k/uL Sodium 139 (137-145) mmol/L Potassium 4.4 (3.5-5.1) mmol/L Chloride 106 (98-107) mmol/L Carbon Dioxide 22 (22-30) mmol/L Anion Gap 11 mmol/L BUN 9 (7-17) mg/dL Creatinine 0.66 (0.52-1.04) mg/dL Est GFR (CKD-EPI)AfAm >90 (>60 ml/min/1.73 sqM) Est GFR (CKD-EPI)NonAf >90 (>60 ml/min/1.73 sqM) Glucose 105 H (74-99) mg/dL Plasma Lactic Acid Wojciech 1.7 (0.7-2.0) mmol/L Calcium 9.2 (8.4-10.2) mg/dL Total Bilirubin 0.4 (0.2-1.3) mg/dL AST 19 (14-36) U/L ALT 18 (4-34) U/L Alkaline Phosphatase 105 (38-126) U/L Total Protein 7.3 (6.3-8.2) g/dL Albumin 4.4 (3.5-5.0) g/dL Lipase 78 (23-300) U/L Urine Color Urine Appearance (Clear) Urine pH (5.0-8.0) Ur Specific Holbrook (1.001-1.035) Urine Protein (Negative) Urine Glucose (UA) (Negative) Urine Ketones (Negative) Urine Blood (Negative) Urine Nitrite (Negative) Urine Bilirubin (Negative) Urine Urobilinogen (<2.0) mg/dL Ur Leukocyte Esterase (Negative) 11/20/22 Range/Units 09:43 WBC (3.8-10.6) k/uL RBC (3.80-5.40) m/uL Hgb (11.4-16.0) gm/dL Hct (34.0-46.0) % MCV (80.0-100.0) fL MCH (25.0-35.0) pg MCHC (31.0-37.0) g/dL RDW (11.5-15.5) % Plt Count (150-450) k/uL MPV Neutrophils % % Lymphocytes % % Monocytes % % Eosinophils % % Basophils % % Neutrophils # (1.3-7.7) k/uL Lymphocytes # (1.0-4.8) k/uL Monocytes # (0-1.0) k/uL Eosinophils # (0-0.7) k/uL Basophils # (0-0.2) k/uL Sodium (137-145) mmol/L Potassium (3.5-5.1) mmol/L Chloride (98-107) mmol/L Carbon Dioxide (22-30) mmol/L Anion Gap mmol/L BUN (7-17) mg/dL Creatinine (0.52-1.04) mg/dL Est GFR (CKD-EPI)AfAm (>60 ml/min/1.73 sqM) Est GFR (CKD-EPI)NonAf (>60 ml/min/1.73 sqM) Glucose (74-99) mg/dL Plasma Lactic Acid Wojciech (0.7-2.0) mmol/L Calcium (8.4-10.2) mg/dL Total Bilirubin (0.2-1.3) mg/dL AST (14-36) U/L ALT (4-34) U/L Alkaline Phosphatase (38-126) U/L Total Protein (6.3-8.2) g/dL Albumin (3.5-5.0) g/dL Lipase (23-300) U/L Urine Color Yellow Urine Appearance Clear (Clear) Urine pH 5.5 (5.0-8.0) Ur Specific [place] 1.016 (1.001-1.035) Urine Protein Negative (Negative) Urine Glucose (UA) Negative (Negative) Urine Ketones Negative (Negative) Urine Blood Negative (Negative) Urine Nitrite Negative (Negative) Urine Bilirubin Negative (Negative) Urine Urobilinogen <2.0 (<2.0) mg/dL Ur Leukocyte Esterase Negative (Negative) Disposition Clinical Impression: Abdominal pain, Intractable nausea and vomiting Disposition: ADMITTED IP TO THIS [facility] Condition: Fair Referrals: None,Stated [REFERRING] - 1-2 days Time of Disposition: 13:49
[2022-11-20] MEDS ORDERED: diphenhydrAMINE 50 MG/ML 1 ML VIAL IVP STA (09:11)
[2022-11-20] MEDS ORDERED: METOCLOPRAMIDE 5 MG/ML 2 ML VIAL IVP STA (09:11)
[2022-11-20 09:53] LABS: Appearance,Urine Clear (Clear); Bilirubin,Urine Negative (Negative); Blood,Urine Negative (Negative); Color,Urine Yellow; Glucose,Urine (UA) Negative (Negative); Ketones,Urine Negative (Negative); Leukocyte Esterase,Urine Negative (Negative); Nitrite,Urine Negative (Negative); PH, Urine 5.5 (5.0-8.0); Protein,Urine Negative (Negative); Specific Gravity,Urine 1.016 (1.001-1.035); Urobilinogen,Urine <2.0 mg/dL (<2.0)
--- NOTE | 2022-11-20 11:03 | CT ---
EXAMINATION TYPE: CT abdomen pelvis w con CT DLP: 620.5 mGycm, Automated exposure control for dose reduction was used. DATE OF EXAM: 11/20/2022 10:46 AM COMPARISON: CT abdomen pelvis most recent from 09/26/2022, 03/13/2022 . CLINICAL INDICATION:Female, 42 years old with history of Intractable abdominal pain; Upper abdominal pain, nausea and vomiting x1 week. TECHNIQUE: Standard CT of the abdomen and pelvis following the administration of 100 cc of Isovue 3 00 IV contrast material. Coronal and sagittal reformats were performed. FINDINGS: LOWER CHEST: Linear scarring and/or atelectasis within the left lower lobe. ABDOMEN LIVER: Unremarkable GALLBLADDER AND BILE DUCTS: Gallbladder is surgically absent with mild intrahepatic and extra hepatic biliary dilatation likely physiologic and a postcholecystectomy change. No evidence of choledocholit hiasis. PANCREAS: Unremarkable. SPLEEN: Unremarkable. ADRENAL GLANDS: Unremarkable. KIDNEYS AND URETERS: No evidence of hydronephrosis or renal calculus. The kidneys enhance symmetrical ly without suspicious focal lesion. PELVIS BLADDER: Incompletely distended but grossly unremarkable. REPRODUCTIVE:Unremarkable CT appearance of the anteverted uterus. Bilateral tubal ligation clip is id entified. ABDOMEN & PELVIS STOMACH AND BOWEL: Stomach and duodenum are unremarkable. Distal colonic diverticulosis without evide nce for acute diverticulitis. The appendix appears within normal limits. No evidence of bowel obstruc tion. PERITONEUM: No evidence of pneumoperitoneum. Trace free fluid in the pelvis. VASCULATURE: No evidence of aortic aneurysm. MUSCULOSKELETAL: No acute osseous abnormalities LYMPH NODES: No gross evidence for lymphadenopathy. SOFT TISSUE/ABDOMINAL WALL: Unremarkable IMPRESSION: 1. No acute abdominal/pelvic process. 2. Colonic diverticulosis without evidence for acute diverticulitis.
[2022-11-20] MEDS ORDERED: NALOXONE 0.4 MG/ML 1 ML VIAL IV PRN (13:47)
[2022-11-20] MEDS ORDERED: ONDANSETRON 4 MG/2 ML VIAL IVP PRN (13:47)
[2022-11-20] MEDS ORDERED: SODIUM CHLORIDE 0.9% 1,000 ML IV SCH (14:00)
[2022-11-20] MEDS ORDERED: PANTOPRAZOLE 40 MG/10 ML VIAL IV SCH (14:00)
[2022-11-20] MEDS ORDERED: DICYCLOMINE 10 MG CAP PO PRN (14:23)
[2022-11-20] MEDS ORDERED: PROCHLORPERAZINE INJ 10 MG/2 ML VIAL IVP PRN (14:24)
[2022-11-20] MEDS: LACTATED RINGERS 1,000 ML IV SCH ×2 (15:03→20:44)
--- NOTE | 2022-11-20 15:31 | P.GSCN ---
History of Present Illness Consult date: 11/20/22 History of present illness: CHIEF COMPLAINT: Abdominal pain HISTORY OF PRESENT ILLNESS: This is a 42-year-old female who presented with complaints of mid abdominal pain and feeling weak. She has been having nausea and vomiting. Patient does have a history of a cholecystectomy. Last colonoscopy was in March 2022 of diverticulosis. Patient had computed tomography scan abdomen and pelvis which showed no acute abdominal pelvic process. Colonic diverticulosis without evidence of acute diverticulitis. She denies any fevers chills or sweats. She did have elevated white count on admission. Patient seen and examined with Dr. elise PAST MEDICAL HISTORY: GERD, gastritis, diverticulosis, benign colon polyps, marijuana use PAST SURGICAL HISTORY: See below MEDICATIONS: See below ALLERGIES: See below SOCIAL HISTORY: No illicit drug use. REVIEW OF SYSTEMS: CONSTITUTIONAL: Denies fever or chills. HEENT: Denies blurred vision, vision changes, or eye pain. Denies hemoptysis CARDIOVASCULAR: Denies chest pain or pressure. RESPIRATORY: No shortness of breath. GASTROINTESTINAL: See HPI for pertinent findings HEMATOLOGIC: Denies bleeding disorders. GENITOURINARY: Denies any blood in urine or increased urinary frequency. SKIN: Denies pruitis. Denies rash. PHYSICAL EXAM: VITAL SIGNS: Reviewed GENERAL: Well-developed in no acute distress. HEENT: No sclera icterus. Extraocular movements grossly intact. Moist buccal mucosa. Head is atraumatic, normocephalic. No nasal drainage. ABDOMEN: Soft. Nondistended. Tenderness with palpation of the mid abdomen NEUROLOGIC: Alert and oriented. Cranial nerves II through XII grossly intact. LABORATORY DATA: WBC is 15.6 Hgb 14.9 platelets 353 Sodium 139 potassium 4.4 creatinine 0.66 Lactic acid 1.7 LFTs normal lipase 78 Urinalysis negative for infection IMAGING: computed tomography scan abdomen and pelvis as stated above ASSESSMENT: 1. Abdominal pain with nausea and vomiting 2. Dehydration PLAN: -Recommend to continue to hydrate with IV fluids -Continue anti-emetics -Continue clear liquids -If patient is still symptomatic tomorrow will repeat computed tomography scan with oral contrast Thank you for this consultation Physician Communications Coordinator note has been reviewed by physician. Signing provider agrees with the documented findings, assessment, and plan of care. Past Medical History Past Medical History: GERD/Reflux Additional Past Medical History / Comment(s): Frequent epigastric/abdominal pain, nausea if pain gets too severe, gastritis, diverticulosis, benign colon polyps, bradycardia History of Any Multi-Drug Resistant Organisms: None Reported Past Surgical History: Cholecystectomy, Orthopedic Surgery, Tubal Ligation Additional Past Surgical History / Comment(s): reconstructive surg. left knee after fx., all teeth removed, EGD, colonoscopy, [facility] Past Anesthesia/Blood Transfusion Reactions: Postoperative Nausea & Vomiting (PONV) Past Psychological History: Depression Additional Psychological History / Comment(s): UNDER CONTROL-NO MEDS Smoking Status: Current every day smoker Past Alcohol Use History: None Reported Additional Past Alcohol Use History / Comment(s): Pt started smoking in 1996 and is a ppd smoker Past Drug Use History: Marijuana Additional Drug Use History / Comment(s): daily marijuana use, approximately 3-4 joints a day-INSTRUCTED TO REFRAIN FROM USE FOR AT LEAST 24 HOURS PRIOR TO PROCEDURE - Past Family History Mother Additional Family Medical History / Comment(s): gall bladder removed, bleeding ulcer Father Family Medical History: Diabetes Mellitus Medications and Allergies Home Medications Medication Instructions Recorded Confirmed Type Citalopram Hydrobromide [CeleXA] 20 mg PO DAILY 11/20/22 11/20/22 History Cyproheptadine [Cyproheptadine HCl] 4 mg PO BID 11/20/22 11/20/22 History Dicyclomine [Bentyl] 10 mg PO TID PRN 11/20/22 11/20/22 History Ondansetron [Zofran] 4 mg PO QID PRN 11/20/22 11/20/22 History Allergies Allergy/AdvReac Type Severity Reaction Status Date / Time Penicillins Allergy Unknown Verified 11/20/22 10:49 Childhood Surgical - Exam Vital Signs Temp Pulse Resp BP Pulse Ox 97.7 F 68 19 176/87 99 11/20/22 06:34 11/20/22 06:34 11/20/22 06:34 11/20/22 06:34 11/20/22 06:34 Results - Labs 11/20/22 07:23 11/20/22 07:23 Abnormal Lab Results - Last 24 Hours (Table) 11/20/22 11/20/22 Range/Units 07:23 07:23 WBC 15.6 H (3.8-10.6) k/uL Neutrophils # 11.6 H (1.3-7.7) k/uL Glucose 105 H (74-99) mg/dL Diabetes panel 11/20/22 Range/Units 07:23 Sodium 139 (137-145) mmol/L Potassium 4.4 (3.5-5.1) mmol/L Chloride 106 (98-107) mmol/L Carbon Dioxide 22 (22-30) mmol/L BUN 9 (7-17) mg/dL Creatinine 0.66 (0.52-1.04) mg/dL Glucose 105 H (74-99) mg/dL Calcium 9.2 (8.4-10.2) mg/dL AST 19 (14-36) U/L ALT 18 (4-34) U/L Alkaline Phosphatase 105 (38-126) U/L Total Protein 7.3 (6.3-8.2) g/dL Albumin 4.4 (3.5-5.0) g/dL Calcium panel 11/20/22 Range/Units 07:23 Calcium 9.2 (8.4-10.2) mg/dL Albumin 4.4 (3.5-5.0) g/dL Pituitary panel 11/20/22 Range/Units 07:23 Sodium 139 (137-145) mmol/L Potassium 4.4 (3.5-5.1) mmol/L Chloride 106 (98-107) mmol/L Carbon Dioxide 22 (22-30) mmol/L BUN 9 (7-17) mg/dL Creatinine 0.66 (0.52-1.04) mg/dL Glucose 105 H (74-99) mg/dL Calcium 9.2 (8.4-10.2) mg/dL Adrenal panel 11/20/22 Range/Units 07:23 Sodium 139 (137-145) mmol/L Potassium 4.4 (3.5-5.1) mmol/L Chloride 106 (98-107) mmol/L Carbon Dioxide 22 (22-30) mmol/L BUN 9 (7-17) mg/dL Creatinine 0.66 (0.52-1.04) mg/dL Glucose 105 H (74-99) mg/dL Calcium 9.2 (8.4-10.2) mg/dL Total Bilirubin 0.4 (0.2-1.3) mg/dL AST 19 (14-36) U/L ALT 18 (4-34) U/L Alkaline Phosphatase 105 (38-126) U/L Total Protein 7.3 (6.3-8.2) g/dL Albumin 4.4 (3.5-5.0) g/dL
[2022-11-20] MEDS: ENOXAPARIN 40 MG/0.4 ML SYRINGE SQ SCH (17:41)
--- NOTE | 2022-11-20 20:06 | P.HPIM ---
History of Present Illness H&P Date: 11/20/22 Chief Complaint: Abdominal pain This is a pleasant 42-year-old patient, follows with Dr. Vali. Patient does smoke a pack a day does about 3-4 metal in her joints a day. March 2022 patient did undergo coloscopy by Dr. Pierre was found to have diverticulosis. September 2020, patient underwent EGD by Dr. Mane was found to have mild gastritis. And sigmoid polypectomy. Found to have mild left-sided colonic diverticulosis. Patient now presents with abdominal pain on and off for about a year. This occasion patient's pending been present for about a week metal of the abdomen. Sharp. Has had vomiting. No fever no chills. It's normal for patient at 3-4 bowel movements in the morning. Patient does get significant reflux. Has been advised in the past to stop smoking and using marijuana. Patient does feel dehydrated. Review of systems: GEN.: Tired EYES: None HEENT: None NECK: None RESPIRATORY: None CARDIOVASCULAR: None GASTROINTESTINAL: As above GENITOURINARY: None MUSCULOSKELETAL: None LYMPHATICS: None HEMATOLOGICAL: None PSYCHIATRY: Anxious] NEUROLOGICAL: None Past medical history to include: GERD, diverticulosis, gastritis, reflux, benign colon polyps. Social history: Smokes a pack of cigarette a day for last 26 years. This 3-4 joints of [place] zhu every day. . 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 Physical examination: VITAL SIGNS: 97.7, 68, 19, 152/94, 99% room air GENERAL: BMI 23.9 and a better bit uncomfortable. EYES: Pupils equal. Conjunctiva normal. HEENT: External appearance of nose and ears normal, oral cavity grossly normal. NECK: JVD not raised; masses not palpable. HEART: First and second heart sounds are normal; no edema. LUNGS: Respiratory rate normal; clear to auscultation. ABDOMEN: Soft, mid abdominal tenderness, no guarding rigidity, liver spleen not palpable, no masses palpable. PSYCH: Alert and oriented x3; mood and affect anxiousl. MUSCULOSKELETAL:No Clubbing/cyanosis;muscles-grossly intact NEUROLOGICAL: Cranial nerves grossly intact; no facial asymmetry, power and sensation grossly intact. LYMPHATICS: No lymph nodes palpable in the axilla and neck Assessment and plan: -Acute on chronic mid abdomen intermittent pain. Now exacerbated. EGD in the 2020 showed mild gastritis. Colonoscopy previously showed mild diverticulosis. No fever no chills. Possible gastritis. Patient is continued to smoke and do marijuana. Tums. PPI. No smoking. -Chronic nicotine dependence, cigarette smoker Nicotine patch -Recreational marijuana use. Patient counseled -Mild left-sided colonic diverticulosis. -Anxiety depression Celexa -Dehydration from recurrent vomiting PPI. K pad. Liquid diet. Tums. Counseled about smoking and marijuana. Nicotine patch. IV fluids Past Medical History Past Medical History: GERD/Reflux Additional Past Medical History / Comment(s): Frequent epigastric/abdominal pain, nausea if pain gets too severe, gastritis, diverticulosis, benign colon polyps, bradycardia History of Any Multi-Drug Resistant Organisms: None Reported Past Surgical History: Cholecystectomy, Orthopedic Surgery, Tubal Ligation Additional Past Surgical History / Comment(s): reconstructive surg. left knee after fx., all teeth removed, EGD, colonoscopy, [facility] Past Anesthesia/Blood Transfusion Reactions: Postoperative Nausea & Vomiting (PONV) Past Psychological History: Depression Smoking Status: Current every day smoker Past Alcohol Use History: None Reported Past Drug Use History: Marijuana - Past Family History Mother Additional Family Medical History / Comment(s): gall bladder removed, bleeding ulcer Father Family Medical History: Diabetes Mellitus Medications and Allergies Home Medications Medication Instructions Recorded Confirmed Type Citalopram Hydrobromide [CeleXA] 20 mg PO DAILY 11/20/22 11/20/22 History Cyproheptadine [Cyproheptadine HCl] 4 mg PO BID 11/20/22 11/20/22 History Dicyclomine [Bentyl] 10 mg PO TID PRN 11/20/22 11/20/22 History Ondansetron [Zofran] 4 mg PO QID PRN 11/20/22 11/20/22 History Allergies Allergy/AdvReac Type Severity Reaction Status Date / Time Penicillins Allergy Unknown Verified 11/20/22 10:49 Childhood Physical Exam Vitals: Vital Signs Temp Pulse Resp BP Pulse Ox 11/20/22 11:51 77 18 152/92 98 11/20/22 09:26 61 16 152/94 99 11/20/22 06:34 97.7 F 68 19 176/87 99 Intake and Output 11/19/22 11/20/22 11/20/22 22:59 06:59 14:59 Other: Weight 61.235 kg Results CBC & Chem 7: 11/20/22 07:23 11/20/22 07:23 Labs: Abnormal Lab Results - Last 24 Hours (Table) 11/20/22 11/20/22 Range/Units 07:23 07:23 WBC 15.6 H (3.8-10.6) k/uL Neutrophils # 11.6 H (1.3-7.7) k/uL Glucose 105 H (74-99) mg/dL
[2022-11-20] MEDS: NICOTINE 21MG/24HR PATCH TRANSDERM SCH (20:30)
[2022-11-20] MEDS: PANTOPRAZOLE 40 MG TABLET PO SCH (20:31)
[2022-11-20] MEDS: CALCIUM CARBONATE 500 MG CHEWABLE PO SCH (20:31)
[2022-11-20] MEDS: CYPROHEPTADINE 4 MG TABLET PO SCH (20:31)
[2022-11-21] MEDS: LACTATED RINGERS 1,000 ML IV SCH ×2 (00:32→06:14)
[2022-11-21] MEDS: PANTOPRAZOLE 40 MG TABLET PO SCH (06:13)
[2022-11-21 08:09] VITALS: RESP 18
[2022-11-21] MEDS ORDERED: CITALOPRAM HYDROBROMIDE 20 MG TAB PO SCH (09:00)
[2022-11-21] MEDS: CALCIUM CARBONATE 500 MG CHEWABLE PO SCH (09:02)
[2022-11-21] MEDS: CYPROHEPTADINE 4 MG TABLET PO SCH (09:02)
[2022-11-21] MEDS: NICOTINE 21MG/24HR PATCH TRANSDERM SCH (09:02)
[2022-11-21] MEDS: ENOXAPARIN 40 MG/0.4 ML SYRINGE SQ SCH (09:02)
--- NOTE | 2022-11-21 14:15 | P.PN ---
Subjective Progress Note Date: 11/21/22 CHIEF COMPLAINT: Abdominal pain with nausea and vomiting HISTORY OF PRESENT ILLNESS: Patient reports that her abdominal pain and vomiting have resolved. She had regular bowel movement. She's feeling much better after the IV fluids. She tolerated a full liquid breakfast this morning. Diet has been advanced to regular for lunch. Afebrile. PHYSICAL EXAM: VITAL SIGNS: Reviewed. GENERAL: Well-developed in no acute distress. HEENT: No sclera icterus. Extraocular movements grossly intact. Moist buccal mucosa. Head is atraumatic, normocephalic. ABDOMEN: Soft. Nondistended. Nontender. NEUROLOGIC: Alert and oriented. Cranial nerves II through XII grossly intact. ASSESSMENT: 1. Abdominal pain with nausea and vomiting. Possible gastroenteritis 2. Dehydration PLAN: -Advance diet to regular -Patient can be discharged from surgical standpoint if tolerates diet advancement Physician Roller Painter note has been reviewed by physician. Signing provider agrees with the documented findings, assessment, and plan of care. Objective - Vital Signs Vital signs: Vital Signs Temp 98.1 F 11/21/22 06:53 Pulse 60 11/21/22 06:53 Resp 18 11/21/22 06:53 BP 107/67 11/21/22 06:53 Pulse Ox 97 11/21/22 06:53 FiO2 Intake & Output 11/20/22 11/21/22 11/21/22 18:59 06:59 18:59 Weight 61.235 kg Other: # Voids 2 - Labs CBC & Chem 7: 11/20/22 07:23 11/20/22 07:23
[2022-11-21 14:43] VITALS: BP 108/68; PULSE 68; TEMP 98.5
--- NOTE | 2022-11-21 20:34 | P.DS ---
Providers Date of admission: 11/20/22 13:48 Expected date of discharge: 11/21/22 Attending physician: Brennan De Leon Consults: 11/20/22 13:47 Consult Physician Urgent Consulting Provider: Toni Pierre Consult Reason/Comments: Intractable abdominal pain/nausea vomiting Do you want consulting provider notified?: Yes Primary care physician: [facility] Course: Chief Complaint: Abdominal pain This is a pleasant 42-year-old patient, follows with Dr. Vail. Patient does smoke a pack a day does about 3-4 metal in her joints a day. March 2022 patient did undergo coloscopy by Dr. Pierre was found to have diverticulosis. September 2020, patient underwent EGD by Dr. Mane was found to have mild gastritis. And sigmoid polypectomy. Found to have mild left-sided colonic diverticulosis. Patient now presents with abdominal pain on and off for about a year. This occasion patient's pending been present for about a week metal of the abdomen. Sharp. Has had vomiting. No fever no chills. It's normal for patient at 3-4 bowel movements in the morning. Patient does get significant reflux. Has been advised in the past to stop smoking and using marijuana. Patient does feel dehydrated. Patient felt of acute and chronic gastritis, skin GERD. November 21: Patient responded well to liquid Tums. PPI. No smoking and no marijuana. Again discussed length today. Importance of not smoking and marijuana. Follow-up with GI outpatient. Diet discussed. Feeling much better today. Discussion and discharge planning more than 35 minutes Past medical history to include: GERD, diverticulosis, gastritis, reflux, benign colon polyps. Social history: Smokes a pack of cigarette a day for last 26 years. This 3-4 joints of marijuana every day. . 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 Physical examination: VITAL SIGNS: 98.5, 68, 18, 108/68, 97% room air GENERAL: BMI 23.9 appears comfortable EYES: Pupils equal. Conjunctiva normal. HEENT: External appearance of nose and ears normal, oral cavity grossly normal. NECK: JVD not raised; masses not palpable. HEART: First and second heart sounds are normal; no edema. LUNGS: Respiratory rate normal; clear to auscultation. ABDOMEN: Soft, no tenderness, no guarding rigidity, liver spleen not palpable, no masses palpable. PSYCH: Alert and oriented x3; mood and affect anxiousl. Assessment and plan: -Acute on chronic mid abdomen intermittent pain. Now exacerbated. EGD in the 2020 showed mild gastritis. Colonoscopy previously showed mild diverticulosis. No fever no chills.: Acute and chronic gastritis: Better Counseled against smoke and marijuana. Tums. PPI. Follow up with Dr. Gian Mitchell outpatient. Diet discussed -Chronic nicotine dependence, cigarette smoker Nicotine patch -Recreational marijuana use. Patient counseled -Mild left-sided colonic diverticulosis. -Anxiety depression Celexa -Dehydration from recurrent vomiting Disposition: Home Plan - Discharge Summary Discharge Rx Participant: No New Discharge Prescriptions: New Nicotine 21Mg/24Hr Patch [Habitrol] 1 patch TRANSDERM DAILY #14 patch Pantoprazole [Protonix] 40 mg PO AC-BID #60 tab Calcium Carbonate [Tums] 1,000 mg PO QID tab Continue Dicyclomine [Bentyl] 10 mg PO TID PRN PRN Reason: CRAMPING Cyproheptadine [Cyproheptadine HCl] 4 mg PO BID Citalopram Hydrobromide [CeleXA] 20 mg PO DAILY Discontinued Ondansetron [Zofran] 4 mg PO QID PRN PRN Reason: Nausea And Vomiting Discharge Medication List Citalopram Hydrobromide [CeleXA] 20 mg PO DAILY 11/20/22 [History] Cyproheptadine [Cyproheptadine HCl] 4 mg PO BID 11/20/22 [History] Dicyclomine [Bentyl] 10 mg PO TID PRN 11/20/22 [History] Calcium Carbonate [Tums] 1,000 mg PO QID tab 11/21/22 [Rx] Nicotine 21Mg/24Hr Patch [Habitrol] 1 patch TRANSDERM DAILY #14 patch 11/21/22 [Rx] Pantoprazole [Protonix] 40 mg PO AC-BID #60 tab 11/21/22 [Rx] Follow up Appointment(s)/Referral(s): Tanmay Vail MD [Primary Care Provider] - 1 Week Savannah Mitchell MD [STAFF PHYSICIAN] - 01/03/23 2:30 pm Patient Instructions/Handouts: Dehydration (GEN) Discharge Disposition: HOME SELF-CARE
== END 2022-11-21 15:40 | disposition home or self-care (01) ==
LOC: EC 06:26 → 6NMEDSUR 13:48
PROVIDERS: ADMIT Hospitalist; ATTEND Hospitalist
DX: R10.9 Unspecified abdominal pain (principal); R11.2 Nausea with vomiting, unspecified; E86.0 Dehydration; K21.9 Gastro-esophageal reflux disease without esophagitis; F12.90 Cannabis use, unspecified, uncomplicated; K57.32 Diverticulitis of large intestine without perforation or abscess without bleeding; F41.8 Other specified anxiety disorders; F17.210 Nicotine dependence, cigarettes, uncomplicated; Z90.49 Acquired absence of other specified parts of digestive tract; Z79.899 Other long term (current) drug therapy; Z88.0 Allergy status to penicillin
CPT/HCPCS: 96361 ×2; 96372 ×2; 96376 ×2; 96374; 96375; 99285; 36415; 80053; 83605; 83690; 85025; 81003; 74177; G0378 ×2; J1200; J2765; J2405; J1650 ×2; J1885; C9113; J1170; Q9967; J1790

== ENCOUNTER 2024-10-02 16:15 | Emergency (ER) | payer BC ==
[2024-10-02 17:10] VITALS: RESP 18
--- NOTE | 2024-10-02 18:32 | ED ---
Abdominal Pain HPI - General Source: patient, RN notes reviewed Mode of arrival: ambulatory Limitations: no limitations <Rolo Nunez - Last Filed: 10/02/24 18:29> <Phyllis Uribe - Last Filed: 10/03/24 16:03> - General Chief Complaint: Abdominal Pain Stated Complaint: abd pain,vomiting Time Seen by Provider: 10/02/24 16:32 - History of Present Illness Initial Comments: This is a 44-year-old female with history of GERD, cholecystectomy and tubal ligation presenting with right upper quadrant abdominal pain (01/29) starting this morning. Patient states pain is intermittent with associated nausea and vomiting. Denies fever, chills, chest pain, dyspnea, radiating pain, dizziness, hematemesis, constipation/diarrhea, urinary symptoms. (MayraRolo) 44-year-old female who is status postcholecystectomy who presents emergency department reporting right upper quadrant abdominal pain. States that the pain started this morning and she has had several episodes of nausea with vomiting. She does have several medications at home as this is a chronic issue for her. S he states she takes Bentyl and Zofran. Reports that her medications were not working at home. No associated fevers. No hematemesis. Denies chest pain or difficulty breathing. No urinary complaints to include dysuria, hematuria or difficulty voiding. Denies black or bloody stools but does admit to loose watery stools. No concern for . Denies any vaginal bleeding, discharge or concern for sexually transmitted infections. Patient follows with Dr. Mitchell typically for her symptoms. States that she has had not had exacerbation of her symptoms in several years. No other alleviating, precipitating modifying factors (Phyllis Uribe) - Related Data Home Medications Medication Instructions Recorded Confirmed Citalopram Hydrobromide [CeleXA] 20 mg PO DAILY 11/20/22 11/20/22 Cyproheptadine [Cyproheptadine HCl] 4 mg PO BID 11/20/22 11/20/22 Dicyclomine [Bentyl] 10 mg PO TID PRN 11/20/22 11/20/22 Previous Rx's Medication Instructions Recorded Calcium Carbonate [Tums] 1,000 mg PO QID tab 11/21/22 Nicotine 21Mg/24Hr Patch [Habitrol] 1 patch TRANSDERM DAILY #14 patch 11/21/22 Pantoprazole [Protonix] 40 mg PO AC-BID #60 tab 11/21/22 Ciprofloxacin HCl [Cipro] 500 mg PO BID #14 tab 10/02/24 HYDROcodone/APAP 5-325MG [[place] 1 tab PO Q6HR PRN 3 Days #12 tab 10/02/24 5-325] Prochlorperazine [Compazine] 10 mg PO Q8H #30 tab 10/02/24 metroNIDAZOLE [Flagyl] 500 mg PO TID #21 tab 10/02/24 Allergies Allergy/AdvReac Type Severity Reaction Status Date / Time Penicillins Allergy Unknown Verified 10/02/24 17:10 Childhood Review of Systems ROS Other: All systems not noted in ROS Statement are negative. <Rolo Nunez - Last Filed: 10/02/24 18:29> ROS Other: All systems not noted in ROS Statement are negative. <Phyllis Uribe - Last Filed: 10/03/24 16:03> ROS Statement: Those systems with pertinent positive or pertinent negative responses have been documented in the HPI. Past Medical History Past Medical History: GERD/Reflux Additional Past Medical History / Comment(s): Frequent epigastric/abdominal pain, nausea if pain gets too severe, gastritis, diverticulosis, benign colon polyps, bradycardia History of Any Multi-Drug Resistant Organisms: None Reported Past Surgical History: Cholecystectomy, Orthopedic Surgery, Tubal Ligation Additional Past Surgical History / Comment(s): reconstructive surg. left knee after fx., all teeth removed, EGD, colonoscopy, [facility] Past Anesthesia/Blood Transfusion Reactions: Postoperative Nausea & Vomiting (PONV) Past Psychological History: Depression Smoking Status: Current every day smoker Past Alcohol Use History: None Reported Past Drug Use History: Marijuana - Past Family History Mother Additional Family Medical History / Comment(s): gall bladder removed, bleeding ulcer Father Family Medical History: Diabetes Mellitus <Rolo Nunez - Last Filed: 10/02/24 18:29> General Exam Limitations: no limitations <Rolo Nunez - Last Filed: 10/02/24 18:29> General appearance: alert, in no apparent distress Head exam: Present: atraumatic, normocephalic, normal inspection Eye exam: Present: normal appearance, PERRL, EOMI. Absent: scleral icterus, conjunctival injection, periorbital swelling ENT exam: Present: normal exam, mucous membranes moist Neck exam: Present: normal inspection. Absent: tenderness, meningismus, lymphadenopathy Respiratory exam: Present: normal lung sounds bilaterally. Absent: respiratory distress, wheezes, rales, rhonchi, stridor Cardiovascular Exam: Present: regular rate, normal rhythm, normal heart sounds. Absent: systolic murmur, diastolic murmur, rubs, gallop, clicks GI/Abdominal exam: Present: soft, tenderness (Right upper quadrant), normal bowel sounds. Absent: distended, guarding, rebound, rigid Extremities exam: Present: normal inspection, full ROM, normal capillary refill. Absent: tenderness, pedal edema, joint swelling, calf tenderness Back exam: Present: normal inspection Neurological exam: Present: alert, oriented X3, CN II-XII intact Psychiatric exam: Present: normal affect, normal mood Skin exam: Present: warm, dry, intact, normal color. Absent: rash <Phyllis Uribe - Last Filed: 10/03/24 16:03> - General Exam Comments Initial Comments: Visual Physical Exam Vital signs reviewed General: Well-appearing, nontoxic. Patient appears mildly distressed Head: Normocephalic, atraumatic Eyes: PERRLA, EOMI ENT: Airway patent Chest: Nonlabored breathing Skin: No visual rash, normal skin tone Neuro: Alert and oriented 3 Musculoskeletal: No gross abnormalities (Rolo Nunez) Course Vital Signs 10/02/24 10/02/24 10/03/24 16:55 19:27 00:14 Temperature 97.6 F 97.5 F L Pulse Rate 86 72 84 Respiratory 18 18 18 Rate Blood Pressure 140/90 142/86 152/98 O2 Sat by Pulse 99 96 94 L Oximetry Medical Decision Making <Rolo Nunez - Last Filed: 10/02/24 18:29> - Lab Data Result diagrams: 10/02/24 17:11 10/02/24 17:11 <Phyllis Uribe - Last Filed: 10/03/24 16:03> - Medical Decision Making I completed the quick note portion of this chart signed ELENA Schwartz (Rolo Nunez) Was pt. sent in by a medical professional or institution ([facility], STRING WINDING MACHINE OPERATOR, urgent care, hospital, or group home...) When possible be specific @ -No Did you speak to anyone other than the patient for history (EMS, parent, family, police, friend...)? What history was obtained from this source @ -No Did you review nursing and triage notes (agree or disagree)? Why? @ -I reviewed and agree with nursing and triage notes Were old charts reviewed (outside hosp., previous admission, EMS record, old EKG, old radiological studies, urgent care reports/EKG's, group home records)? Report findings @ -No old charts were reviewed Differential Diagnosis (chest pain, altered mental status, abdominal pain women, abdominal pain men, vaginal bleeding, weakness, fever, dyspnea, syncope, headache, dizziness, GI bleed, back pain, seizure, CVA, palpatations, mental health, musculoskeletal)? @ -Differential Abdominal Pain Women: Appendicitis, Cholecystitis, diverticulosis, ischemic bowel, pancreatitis, hepatitis, UTI, gastroenteritis, AAA, incarcerated hernia, bowel obstruction, constipation, inflammatory bowel, hepatitis, peptic ulcer disease, splenic infarction, perforated viscus, vulvitis, ovarian torsion, PID, kidney stone, placenta abruption, this is not meant to be an all-inclusive list EKG interpreted by me (3pts min.). @ -Yes and demonstrates sinus rhythm with a rate of 71. CT interval 137. QRS 92. QTc of 396. No acute ST segment elevations or depressions X-rays interpreted by me (1pt min.). @ -None done CT interpreted by me (1pt min.). @ -Yes and demonstrates possible colitis versus underdistention U/S interpreted by me (1pt. min.). @ -None done What testing was considered but not performed or refused? (CT, X-rays, U/S, labs)? Why? @ -None What meds were considered but not given or refused? Why? @ -None Did you discuss the management of the patient with other professionals (pro fessionals i.e. , PA, STRING WINDING MACHINE OPERATOR, lab, RT, psych nurse, medical social worker, furnace installer, teacher, ski patrol officer, high risk case manager)? Give summary @ -No Was smoking cessation discussed for >3mins.? @ -No Was critical care preformed (if so, how long)? @ -No Were there social determinants of health that impacted care today? How? (Homelessness, low income, unemployed, alcoholism, drug addiction, transportation, low edu. Level, literacy, decrease access to med. care, fdc, rehab)? @ -No Was there de-escalation of care discussed even if they declined (Discuss DNR or withdrawal of care, Hospice)? DNR status @ -No What co-morbidities impacted this encounter? (DM, HTN, Smoking, COPD, CAD, Cancer, CVA, ARF, Chemo, Hep., AIDS, mental health diagnosis, sleep apnea, morbid obesity)? @ -Chronic abdominal pain Was patient admitted / discharged? Hospital course, mention meds given and route, prescriptions, significant lab abnormalities, going to OR and other pertinent info. @ -Upon arrival patient seen and evaluated in hallway 11. Thorough history and physical exam was performed. IV access was established and laboratory studies are conducted. Chest x-ray and KUB were obtained. Patient does have a leukocyt osis of 16. Because of this I did recommend CT scan for which the patient was agreeable. She had been previously given 1 mg of Dilaudid and 4 mg of Zofran however states it has not helped her symptoms. I did follow this with a dose of morphine and Compazine. Patient was given intravenous fluids. CT does demonstrate possible underdistention versus colitis. Due to the leukocytosis I did recommend adding antibiotics for possible infectious cause. Patient was agreeable to this. She will be placed on Cipro and Flagyl. She was administered a dose of Rocephin in the emergency department. Patient will additionally be placed on a short course of [place] and Compazine for her vomiting. She is to follow-up with her GI doctor, Dr. Delgado. Return for any new or worsening symptoms. Patient agreeable plan was discharged in stable condition Undiagnosed new problem with uncertain prognosis? @ -No Drug Therapy requiring intensive monitoring for toxicity (Heparin, Nitro, Insulin, Cardizem)? @ -No Were any procedures done? @ -No Diagnosis/symptom? @ -Acute exacerbation of chronic abdominal pain, acute nausea vomiting, possible colitis, leukocytosis Acute, or Chronic, or Acute on Chronic? @ -Acute Uncomplicated (without systemic symptoms) or Complicated (systemic symptoms)? @ -Complicated Side effects of treatment? @ -No Exacerbation, Progression, or Severe Exacerbation? @ -Yes Poses a threat to life or bodily function? How? (Chest pain, USA, GA, pneumonia, PE, COPD, DKA, ARF, appy, cholecystitis, CVA, Diverticulitis, Homicidal, Suicidal, threat to staff... and all critical care pts) @ -No (JojoPhyllis Anson) - Lab Data Lab Results 10/02/24 10/02/24 10/02/24 Range/Units 17:11 17:11 18:47 WBC 16.6 H (3.8-10.6) k/uL RBC 5.01 (3.80-5.40) m/uL Hgb 15.1 (11.4-16.0) gm/dL Hct 47.5 H (34.0-46.0) % MCV 94.8 (80.0-100.0) fL MCH 30.2 (25.0-35.0) pg MCHC 31.8 (31.0-37.0) g/dL RDW 13.4 (11.5-15.5) % Plt Count 411 (150-450) k/uL MPV 7.1 Neutrophils % 86 % Lymphocytes % 8 % Monocytes % 4 % Eosinophils % 0 % Basophils % 0 % Neutrophils # 14.3 H (1.3-7.7) k/uL Lymphocytes # 1.4 (1.0-4.8) k/uL Monocytes # 0.7 (0-1.0) k/uL Eosinophils # 0.1 (0-0.7) k/uL Basophils # 0.0 (0-0.2) k/uL PT 11.5 (10.0-12.5) sec INR 1.1 (<1.2) APTT 24.0 (22.0-30.0) sec Sodium 134 L (137-145) mmol/L Potassium 4.0 (3.5-5.1) mmol/L Chloride 99 (98-107) mmol/L Carbon Dioxide 21 L (22-30) mmol/L Anion Gap 14 mmol/L BUN 9 (7-17) mg/dL Creatinine 0.66 (0.52-1.04) mg/dL Est GFR (CKD-EPI)AfAm >90 (>60 ml/min/1.73 sqM) Est GFR (CKD-EPI)NonAf >90 (>60 ml/min/1.73 sqM) Glucose 134 H (74-99) mg/dL Calcium 9.8 (8.4-10.2) mg/dL Total Bilirubin 0.9 (0.2-1.3) mg/dL AST 19 (14-36) U/L ALT 20 (4-34) U/L Alkaline Phosphatase 134 H (38-126) U/L Troponin I (0.000-0.034) ng/mL Total Protein 8.1 (6.3-8.2) g/dL Albumin 5.0 (3.5-5.0) g/dL Amylase 48 (30-110) U/L Lipase 58 (23-300) U/L 10/02/24 Range/Units 18:47 WBC (3.8-10.6) k/uL RBC (3.80-5.40) m/uL Hgb (11.4-16.0) gm/dL Hct (34.0-46.0) % MCV (80.0-100.0) fL MCH (25.0-35.0) pg MCHC (31.0-37.0) g/dL RDW (11.5-15.5) % Plt Count (150-450) k/uL MPV Neutrophils % % Lymphocytes % % Monocytes % % Eosinophils % % Basophils % % Neutrophils # (1.3-7.7) k/uL Lymphocytes # (1.0-4.8) k/uL Monocytes # (0-1.0) k/uL Eosinophils # (0-0.7) k/uL Basophils # (0-0.2) k/uL PT (10.0-12.5) sec INR (<1.2) APTT (22.0-30.0) sec Sodium (137-145) mmol/L Potassium (3.5-5.1) mmol/L Chloride (98-107) mmol/L Carbon Dioxide (22-30) mmol/L Anion Gap mmol/L BUN (7-17) mg/dL Creatinine (0.52-1.04) mg/dL Est GFR (CKD-EPI)AfAm (>60 ml/min/1.73 sqM) Est GFR (CKD-EPI)NonAf (>60 ml/min/1.73 sqM) Glucose (74-99) mg/dL Calcium (8.4-10.2) mg/dL Total Bilirubin (0.2-1.3) mg/dL AST (14-36) U/L ALT (4-34) U/L Alkaline Phosphatase (38-126) U/L Troponin I <0.012 (0.000-0.034) ng/mL Total Protein (6.3-8.2) g/dL Albumin (3.5-5.0) g/dL Amylase (30-110) U/L Lipase (23-300) U/L Disposition <Rolo Nunez - Last Filed: 10/02/24 18:29> Is patient prescribed a controlled substance at d/c from ED?: Yes When asked, does pt state using other controlled substances?: No If prescribed controlled substance>3 days was MAPS reviewed?: Prescribed <3 Days If opioid is for acute pain is fill amount 7 days or less?: Yes Time of Disposition: 23:42 <Phyllis Uribe - Last Filed: 10/03/24 16:03> Clinical Impression: Abdominal pain, Colitis, Nausea & vomiting Disposition: HOME SELF-CARE Condition: Stable Instructions (If sedation given, give patient instructions): Abdominal Pain (ED) Additional Instructions: Please take the medications that you have been prescribed for your symptoms. Follow-up with your GI doctor and return for any new or worsening symptoms Prescriptions: Ciprofloxacin HCl [Cipro] 500 mg PO BID #14 tab Prochlorperazine [Compazine] 10 mg PO Q8H #30 tab metroNIDAZOLE [Flagyl] 500 mg PO TID #21 tab HYDROcodone/APAP 5-325MG [[place] 5-325] 1 tab PO Q6HR PRN 3 Days #12 tab PRN Reason: Severe Breakthrough Pain Referrals: Tanmay Vail MD [Primary Care Provider] - 1-2 days
--- NOTE | 2024-10-02 18:44 | XR ---
EXAMINATION TYPE: XR KUB DATE OF EXAM: 10/02/2024 6:35 PM CLINICAL INDICATION: Female, 44 years old with history of abdominal pain TECHNIQUE: 2 upright views of the abdomen. COMPARISON: CT November 20, 2022 FINDINGS: Gas is seen in nondistended stomach. Some paucity of bowel gas. Scattered gas is seen in no ndistended small and large bowel loops. There is no visceromegaly, pneumoperitoneum, or abnormal calc ification appreciated. Cholecystectomy clips are redemonstrated. Tubal ligation clips in the pelvis a re again seen. The lung bases are clear and the osseous structures are intact. IMPRESSION: Overall nonspecific strongly favor nonobstructive bowel gas pattern. [facility], , 10/02/2024 6:42 PM
--- NOTE | 2024-10-02 18:48 | XR ---
EXAMINATION TYPE: XR chest 2V DATE OF EXAM: 10/02/2024 CLINICAL INDICATION: Female, 44 years old with history of upper abd pain, TECHNIQUE: Frontal and lateral views of the chest are obtained. COMPARISON: None FINDINGS: There is no focal air space opacity, pleural effusion, or pneumothorax seen. The cardiac silhouette size is within normal limits. The osseous structures are intact. Cholecystectomy clips a re seen. IMPRESSION: No acute cardiopulmonary process. [facility], , 10/02/2024 6:45 PM
[2024-10-02 19:07] LABS: ALT 20 U/L (4-34); AST 19 U/L (14-36); African American GFR (CKD) >90 (>60 ml/min/1.73 sqM); Alkaline Phosphatase 134 U/L (38-126); Amylase 48 U/L (30-110); Anion Gap 14 mmol/L; Blood Urea Nitrogen 9 mg/dL (7-17); Calcium 9.8 mg/dL (8.4-10.2); Carbon Dioxide 21 mmol/L (22-30); Chloride 99 mmol/L (98-107); Glucose 134 mg/dL (74-99); Lipase 58 U/L (23-300); Non-African American GFR(CKD) >90 (>60 ml/min/1.73 sqM); Sodium 134 mmol/L (137-145); Total Bilirubin 0.9 mg/dL (0.2-1.3); Total Protein 8.1 g/dL (6.3-8.2)
[2024-10-02 19:11] LABS: Basophils % (A) 0 %; Eosinophils # (A) 0.1 k/uL (0-0.7); Eosinophils % (A) 0 %; HCT 47.5 % (34.0-46.0); HGB 15.1 gm/dL (11.4-16.0); Lymphocytes # (A) 1.4 k/uL (1.0-4.8); Lymphocytes % (A) 8 %; MCH 30.2 pg (25.0-35.0); MCHC 31.8 g/dL (31.0-37.0); MCV 94.8 fL (80.0-100.0); Mean Platelet Volume 7.1; Monocytes # (A) 0.7 k/uL (0-1.0); Monocytes % (A) 4 %; Neutrophils # (A) 14.3 k/uL (1.3-7.7); Neutrophils % (A) 86 %; Platelet Count 411 k/uL (150-450); RBC 5.01 m/uL (3.80-5.40); RDW 13.4 % (11.5-15.5); WBC 16.6 k/uL (3.8-10.6)
[2024-10-02 19:12] LABS: INR 1.1 (<1.2); Prothrombin Time 11.5 sec (10.0-12.5)
[2024-10-02] MEDS: ONDANSETRON 4 MG/2 ML VIAL IVP STA (19:51)
[2024-10-02] MEDS: SODIUM CHLORIDE 0.9% 1,000 ML IV ONE (20:58)
[2024-10-02] MEDS: HYDROmorphone 1 MG/ML 1 ML SYRINGE IVP STA (20:59)
[2024-10-02] MEDS: PROCHLORPERAZINE INJ 10 MG/2 ML VIAL IVP STA (21:00)
--- NOTE | 2024-10-02 21:30 | CT ---
EXAMINATION TYPE: CT abdomen pelvis w con DATE OF EXAM: 10/02/2024 COMPARISON: Prior CT November 20, 2022 CLINICAL INDICATION: Female, 44 years old with history of abd pain, leukocytosis, coming in for compl aints of abdominal pain and vomiting that started this morning, TECHNIQUE: CT scan of the abdomen and pelvis is performed with IV Contrast, patient injected with 100 ml mL of I sovue 300., (none if empty) Oral contrast used: without Oral Contrast (none if empty) CT DLP: 931.1 mGycm, Automated exposure control for dose reduction was used. FINDINGS: LUNG BASES: No significant abnormality is appreciated. LIVER/GB: Cholecystectomy clips are redemonstrated. PANCREAS: No significant abnormality is seen. SPLEEN: No significant abnormality is seen. ADRENALS: No significant abnormality is seen. KIDNEYS: No significant abnormality is seen. BOWEL: Suboptimal evaluation without enteric contrast. No abnormal small or large bowel dilatation. Some scattered colonic diverticula are redemonstrated. No CT evidence for acute diverticulitis. Mild to moderate wall thickening involving the left and sigmoid colon. UTERUS/ADNEXA: Anteverted uterus redemonstrated. Tubal ligation clips in the bilateral pelvis again s een. LYMPH NODES: No greater than 1cm abdominal or pelvic lymph nodes are appreciated. OSSEOUS STRUCTURES: No significant abnormality is seen. OTHER: No significant additional abnormality is seen. IMPRESSION: Possible uncomplicated acute colitis involving the left and sigmoid colon versus product of poor distention. Correlate clinically. Differential includes infectious and/or inflammatory etiolo gies. [facility], , 10/02/2024 9:27 PM
[2024-10-02] MEDS: MORPHINE SULFATE 4 MG/ML SYRINGE IVP STA (23:56)
[2024-10-02] MEDS: FAMOTIDINE 20 MG/2 ML VIAL IV STA (23:57)
[2024-10-02] MEDS: cefTRIAXone IN SWFI 1,000 MG/10 ML SYRINGE IVP STA (23:57)
[2024-10-03 00:15] VITALS: BP 152/98; PULSE 84; TEMP 97.5
== END 2024-10-03 00:16 | disposition home or self-care (01) ==
LOC: EC 16:15
DX: K52.9 Noninfective gastroenteritis and colitis, unspecified (principal); D72.829 Elevated white blood cell count, unspecified; F17.200 Nicotine dependence, unspecified, uncomplicated; Z88.0 Allergy status to penicillin
CPT/HCPCS: 36415; 93005; 80053; 82150; 83690; 84484; 85025; 85610; 85730; 71046; 74018; 74177; 99285; 96374; 96375 ×5; 96361; J2270; J0780; J2405; J0696; J3490; J1171; Q9967

== ENCOUNTER 2024-10-04 16:32 | Emergency (ER) | payer BC ==
--- NOTE | 2024-10-04 17:47 | ED ---
Abdominal Pain HPI - General Source: patient, family Mode of arrival: ambulatory Limitations: no limitations <Gerardo Torres - Last Filed: 10/04/24 17:47> - General Source: patient, RN notes reviewed <Shae Hermosillo - Last Filed: 10/04/24 22:42> - General Chief Complaint: Abdominal Pain Stated Complaint: abd pain Time Seen by Provider: 10/04/24 17:47 - History of Present Illness Initial Comments: 44-year-old female presenting with chief complaint of abdominal pain. Patient is having sharp epigastric pain and nausea and vomiting. She does have history of cholecystectomy. Denies alcohol use. No chest pain or difficulty breathing. No hematemesis. (Gerardo Torres) 44-year-old female with history of cholecystectomy presenting for right upper quadrant abdominal pain with associated nausea and vomiting. States this is a chronic issue for her however worsened 2 days ago. She was seen in the ER [address] scan of the abdomen was performed and she was told she had an infection in the abdomen. She has been taking 2 antibiotics. She reports symptoms improved yesterday, however she woke up this morning, tried to eat, and began to vomit. States the epigastric pain is now worsening. Denies diarrhea, fever, chest pain, shortness of breath, or urinary symptoms. (Shae Hermosillo) - Related Data Home Medications Medication Instructions Recorded Confirmed Citalopram Hydrobromide [CeleXA] 20 mg PO DAILY 11/20/22 11/20/22 Cyproheptadine [Cyproheptadine HCl] 4 mg PO BID 11/20/22 11/20/22 Dicyclomine [Bentyl] 10 mg PO TID PRN 11/20/22 11/20/22 Previous Rx's Medication Instructions Recorded Calcium Carbonate [Tums] 1,000 mg PO QID tab 11/21/22 Nicotine 21Mg/24Hr Patch [Habitrol] 1 patch TRANSDERM DAILY #14 patch 11/21/22 Pantoprazole [Protonix] 40 mg PO AC-BID #60 tab 11/21/22 Ciprofloxacin HCl [Cipro] 500 mg PO BID #14 tab 10/02/24 HYDROcodone/APAP 5-325MG [[place] 1 tab PO Q6HR PRN 3 Days #12 tab 10/02/24 5-325] Prochlorperazine [Compazine] 10 mg PO Q8H #30 tab 10/02/24 metroNIDAZOLE [Flagyl] 500 mg PO TID #21 tab 10/02/24 Allergies Allergy/AdvReac Type Severity Reaction Status Date / Time Penicillins Allergy Unknown Verified 10/02/24 17:10 Childhood Review of Systems ROS Other: All systems not noted in ROS Statement are negative. <Gerardo Torres - Last Filed: 10/04/24 17:47> ROS Other: All systems not noted in ROS Statement are negative. <Shae Hermosillo - Last Filed: 10/04/24 22:42> ROS Statement: Those systems with pertinent positive or pertinent negative responses have been documented in the HPI. Past Medical History Past Medical History: GERD/Reflux Additional Past Medical History / Comment(s): Frequent epigastric/abdominal pain, nausea if pain gets too severe, gastritis, diverticulosis, benign colon polyps, bradycardia History of Any Multi-Drug Resistant Organisms: None Reported Past Surgical History: Cholecystectomy, Orthopedic Surgery, Tubal Ligation Additional Past Surgical History / Comment(s): reconstructive surg. left knee after fx., all teeth removed, EGD, colonoscopy, [facility] Past Anesthesia/Blood Transfusion Reactions: Postoperative Nausea & Vomiting (PONV) Past Psychological History: Depression Smoking Status: Current every day smoker Past Alcohol Use History: None Reported Past Drug Use History: Marijuana - Past Family History Mother Additional Family Medical History / Comment(s): gall bladder removed, bleeding ulcer Father Family Medical History: Diabetes Mellitus <Gerardo Torres - Last Filed: 10/04/24 17:47> General Exam Limitations: no limitations <Gerardo Torres - Last Filed: 10/04/24 17:47> General appearance: alert, in no apparent distress Head exam: Present: atraumatic, normocephalic, normal inspection Eye exam: Present: normal appearance, PERRL, EOMI. Absent: scleral icterus, conjunctival injection, periorbital swelling Respiratory exam: Present: normal lung sounds bilaterally. Absent: respiratory distress, wheezes, rales, rhonchi, stridor Cardiovascular Exam: Present: regular rate, normal rhythm, normal heart sounds. Absent: systolic murmur, diastolic murmur, rubs, gallop, clicks GI/Abdominal exam: Present: soft, normal bowel sounds. Absent: distended, tenderness, guarding, rebound, rigid Neurological exam: Present: alert, oriented X3 Psychiatric exam: Present: normal affect, normal mood Skin exam: Present: warm, dry, intact, normal color. Absent: rash <Shae Hermosillo - Last Filed: 10/04/24 22:42> - General Exam Comments Initial Comments: Visual Physical Exam Vital signs reviewed General: Well-appearing, nontoxic, no acute distress. Head: Normocephalic, atraumatic Eyes: PERRLA, EOMI ENT: Airway patent Chest: Nonlabored breathing Skin: No visual rash, normal skin tone Neuro: Alert and oriented 3 Musculoskeletal: No gross abnormalities (Gerardo Torres) Course Vital Signs 10/04/24 10/04/24 10/04/24 17:22 20:05 22:13 Temperature 97.8 F 98.1 F Pulse Rate 103 H 94 96 Respiratory 20 18 18 Rate Blood Pressure 153/107 126/72 116/78 O2 Sat by Pulse 97 96 97 Oximetry Medical Decision Making <Gerardo Torres - Last Filed: 10/04/24 17:47> - Lab Data Result diagrams: 10/04/24 17:25 10/04/24 17:25 <Shae Hermosillo - Last Filed: 10/04/24 22:42> - Medical Decision Making I performed the quick note portion of this visit, electronically signed Gerardo Torres PA-C (Gerardo Torres) Was pt. sent in by a medical professional or institution ([facility], [employer], urgent care, hospital, or snf...) When possible be specific @ -No Did you speak to anyone other than the patient for history (EMS, parent, family, police, friend...)? What history was obtained from this source @ -No Did you review nursing and triage notes (agree or disagree)? Why? @ -I reviewed and agree with nursing and triage notes Were old charts reviewed (outside hosp., previous admission, EMS record, old EKG, old radiological studies, urgent care reports/EKG's, snf records)? Report findings @ -Previous ER chart from 2 days [address] reviewed [address] scan which revealed possible uncomplicated acute colitis involving left and sigmoid colon versus product of poor distention, lab work reviewed including leukocytosis of 16.6 Differential Diagnosis (chest pain, altered mental status, abdominal pain women, abdominal pain men, vaginal bleeding, weakness, fever, dyspnea, syncope, h eadache, dizziness, GI bleed, back pain, seizure, CVA, palpatations, mental health, musculoskeletal)? @ -Differential Abdominal Pain Women: Appendicitis, Cholecystitis, diverticulosis, ischemic bowel, pancreatitis, hepatitis, UTI, gastroenteritis, AAA, incarcerated hernia, bowel obstruction, constipation, inflammatory bowel, hepatitis, peptic ulcer disease, splenic infarction, perforated viscus, vulvitis, ovarian torsion, PID, kidney stone, placenta abruption, this is not meant to be an all-inclusive list EKG interpreted by me (3pts min.). @ -None X-rays interpreted by me (1pt min.). @ -None done CT interpreted by me (1pt min.). @ -None done U/S interpreted by me (1pt. min.). @ -None done What testing was considered but not performed or refused? (CT, X-rays, U/S, labs)? Why? @ -CT deferred due to patient underwent CT abdomen pelvis 2 days ago for same symptoms What meds were considered but not given or refused? Why? @ -None Did you discuss the management of the patient with other professionals (professionals i.e. , PA, [employer], lab, RT, psych nurse, social media editor, demolition hammer operator, teacher, immigration officer, renal case manager)? Give summary @ -No Was smoking cessation discussed for >3mins.? @ -No Was critical care preformed (if so, how long)? @ -No Were there social determinants of health that impacted care today? How? (Homelessness, low income, unemployed, alcoholism, drug addiction, transport ation, low edu. Level, literacy, decrease access to med. care, group home, rehab)? @ -No Was there de-escalation of care discussed even if they declined (Discuss DNR or withdrawal of care, Hospice)? DNR status @ -No What co-morbidities impacted this encounter? (DM, HTN, Smoking, COPD, CAD, Cancer, CVA, ARF, Chemo, Hep., AIDS, mental health diagnosis, sleep apnea, morbid obesity)? @ -None Was patient admitted / discharged? Hospital course, mention meds given and route, prescriptions, significant lab abnormalities, going to OR and other pertinent info. @ -Discharge. Patient is afebrile, abdomen soft nontender. Patient was provided with IV fluids, analgesics, and antiemetics. Lab work remarkable for leukocytosis of 15 with left shift, improved from 16.6 2 days ago. Alk phos is 132 today improved from 134 2 days ago. Urinalysis reveals contaminated sample not indicative of a UTI. Upon reevaluation, patient reports significant improvement of symptoms. Results discussed with patient. Discussed that labs have improved from 2 days ago and it is safe to discharge patient at this time and continue antibiotics as prescribed for colitis. Patient is agreeable to this plan. Appropriate return precautions and follow-up care discussed. Case was discussed with my ED attending Dr. Salcedo. Undiagnosed new problem with uncertain prognosis? @ -No Drug Therapy requiring intensive monitoring for toxicity (Heparin, Nitro, Insulin, Cardizem)? @ -No Were any procedures done? @ -No Diagnosis/symptom? @ -Acute colitis Acute, or Chronic, or Acute on Chronic? @ -Acute Uncomplicated (without systemic symptoms) or Complicated (systemic symptoms)? @ -Complicated Side effects of treatment? @ -No Exacerbation, Progression, or Severe Exacerbation? @ -No Poses a threat to life or bodily function? How? (Chest pain, [place], [place], pneumonia, PE, COPD, DKA, ARF, appy, cholecystitis, CVA, Diverticulitis, Homicidal, Suicidal, threat to staff... and all critical care pts) @ -Not at this time (Shae Hermosillo) - Lab Data Lab Results 10/04/24 10/04/24 10/04/24 Range/Units 17:25 17:25 17:25 WBC 15.0 H (3.8-10.6) k/uL RBC 4.95 (3.80-5.40) m/uL Hgb 15.1 (11.4-16.0) gm/dL Hct 46.3 H (34.0-46.0) % MCV 93.5 (80.0-100.0) fL MCH 30.5 (25.0-35.0) pg MCHC 32.6 (31.0-37.0) g/dL RDW 13.7 (11.5-15.5) % Plt Count 396 (150-450) k/uL MPV 7.3 Neutrophils % 87 % Lymphocytes % 8 % Monocytes % 3 % Eosinophils % 1 % Basophils % 0 % Neutrophils # 13.0 H (1.3-7.7) k/uL Lymphocytes # 1.2 (1.0-4.8) k/uL Monocytes # 0.5 (0-1.0) k/uL Eosinophils # 0.2 (0-0.7) k/uL Basophils # 0.0 (0-0.2) k/uL Sodium 133 L (137-145) mmol/L Potassium 3.5 (3.5-5.1) mmol/L Chloride 92 L (98-107) mmol/L Carbon Dioxide 28 (22-30) mmol/L Anion Gap 13 mmol/L BUN 9 (7-17) mg/dL Creatinine 0.77 (0.52-1.04) mg/dL Est GFR (CKD-EPI)AfAm >90 (>60 ml/min/1.73 sqM) Est GFR (CKD-EPI)NonAf >90 (>60 ml/min/1.73 sqM) Glucose 137 H (74-99) mg/dL Plasma Lactic Acid Wojciech 1.7 (0.7-2.0) mmol/L Calcium 9.9 (8.4-10.2) mg/dL Total Bilirubin 1.1 (0.2-1.3) mg/dL AST 23 (14-36) U/L ALT 23 (4-34) U/L Alkaline Phosphatase 132 H (38-126) U/L Troponin I (0.000-0.034) ng/mL Total Protein 8.1 (6.3-8.2) g/dL Albumin 4.9 (3.5-5.0) g/dL Amylase 47 (30-110) U/L Lipase 49 (23-300) U/L Urine Color Urine Appearance (Clear) Urine pH (5.0-8.0) Ur Specific [place] (1.001-1.035) Urine Protein (Negative) Urine Glucose (UA) (Negative) Urine Ketones (Negative) Urine Blood (Negative) Urine Nitrite (Negative) Urine Bilirubin (Negative) Urine Urobilinogen (<2.0) mg/dL Ur Leukocyte Esterase (Negative) Urine RBC (0-5) /hpf Urine WBC (0-5) /hpf Ur Squamous Epith Cells (0-4) /hpf Urine Bacteria (None) /hpf Hyaline Casts (0-2) /lpf Urine Mucus (None) /hpf 10/04/24 10/04/24 Range/Units 17:25 20:13 WBC (3.8-10.6) k/uL RBC (3.80-5.40) m/uL Hgb (11.4-16.0) gm/dL Hct (34.0-46.0) % MCV (80.0-100.0) fL MCH (25.0-35.0) pg MCHC (31.0-37.0) g/dL RDW (11.5-15.5) % Plt Count (150-450) k/uL MPV Neutrophils % % Lymphocytes % % Monocytes % % Eosinophils % % Basophils % % Neutrophils # (1.3-7.7) k/uL Lymphocytes # (1.0-4.8) k/uL Monocytes # (0-1.0) k/uL Eosinophils # (0-0.7) k/uL Basophils # (0-0.2) k/uL Sodium (137-145) mmol/L Potassium (3.5-5.1) mmol/L Chloride (98-107) mmol/L Carbon Dioxide (22-30) mmol/L Anion Gap mmol/L BUN (7-17) mg/dL Creatinine (0.52-1.04) mg/dL Est GFR (CKD-EPI)AfAm (>60 ml/min/1.73 sqM) Est GFR (CKD-EPI)NonAf (>60 ml/min/1.73 sqM) Glucose (74-99) mg/dL Plasma Lactic Acid Wojciech (0.7-2.0) mmol/L Calcium (8.4-10.2) mg/dL Total Bilirubin (0.2-1.3) mg/dL AST (14-36) U/L ALT (4-34) U/L Alkaline Phosphatase (38-126) U/L Troponin I <0.012 (0.000-0.034) ng/mL Total Protein (6.3-8.2) g/dL Albumin (3.5-5.0) g/dL Amylase (30-110) U/L Lipase (23-300) U/L Urine Color Dark Brown Urine Appearance Cloudy H (Clear) Urine pH 6.5 (5.0-8.0) Ur Specific [place] 1.035 (1.001-1.035) Urine Protein 2+ H (Negative) Urine Glucose (UA) Negative (Negative) Urine Ketones 1+ H (Negative) Urine Blood Trace H (Negative) Urine Nitrite Negative (Negative) Urine Bilirubin Negative (Negative) Urine Urobilinogen 3.0 (<2.0) mg/dL Ur Leukocyte Esterase Trace H (Negative) Urine RBC 18 H (0-5) /hpf Urine WBC 2 (0-5) /hpf Ur Squamous Epith Cells 21 H (0-4) /hpf Urine Bacteria Occasional H (None) /hpf Hyaline Casts 9 H (0-2) /lpf Urine Mucus Many H (None) /hpf Disposition <Gerardo Torres - Last Filed: 10/04/24 17:47> Is patient prescribed a controlled substance at d/c from ED?: No Time of Disposition: 21:52 <Shae Hermosillo - Last Filed: 10/04/24 22:42> Clinical Impression: Acute colitis Disposition: HOME SELF-CARE Condition: Stable Instructions (If sedation given, give patient instructions): Infectious Colitis (ED) Additional Instructions: Continue antibiotics as prescribed. Follow-up with Dr. Mitchell as discussed. Please return to the Emergency Department if symptoms worsen or any other concerns. Referrals: Tanmay Vail MD [REFERRING] - 1-2 days
[2024-10-04 17:50] LABS: Basophils % (A) 0 %; Eosinophils # (A) 0.2 k/uL (0-0.7); Eosinophils % (A) 1 %; HCT 46.3 % (34.0-46.0); HGB 15.1 gm/dL (11.4-16.0); Lymphocytes # (A) 1.2 k/uL (1.0-4.8); Lymphocytes % (A) 8 %; MCH 30.5 pg (25.0-35.0); MCHC 32.6 g/dL (31.0-37.0); MCV 93.5 fL (80.0-100.0); Mean Platelet Volume 7.3; Monocytes # (A) 0.5 k/uL (0-1.0); Monocytes % (A) 3 %; Neutrophils % (A) 87 %; Platelet Count 396 k/uL (150-450); RBC 4.95 m/uL (3.80-5.40); RDW 13.7 % (11.5-15.5)
[2024-10-04 18:00] LABS: ALT 23 U/L (4-34); AST 23 U/L (14-36); African American GFR (CKD) >90 (>60 ml/min/1.73 sqM); Albumin 4.9 g/dL (3.5-5.0); Alkaline Phosphatase 132 U/L (38-126); Amylase 47 U/L (30-110); Anion Gap 13 mmol/L; Blood Urea Nitrogen 9 mg/dL (7-17); Calcium 9.9 mg/dL (8.4-10.2); Carbon Dioxide 28 mmol/L (22-30); Chloride 92 mmol/L (98-107); Glucose 137 mg/dL (74-99); Lipase 49 U/L (23-300); Non-African American GFR(CKD) >90 (>60 ml/min/1.73 sqM); Potassium 3.5 mmol/L (3.5-5.1); Sodium 133 mmol/L (137-145); Total Bilirubin 1.1 mg/dL (0.2-1.3); Total Protein 8.1 g/dL (6.3-8.2)
[2024-10-04 20:07] VITALS: RESP 18
[2024-10-04] MEDS: ONDANSETRON 4 MG/2 ML VIAL IVP STA (20:09)
[2024-10-04] MEDS: KETOROLAC 15 MG/ML 1 ML VIAL IVP STA (20:11)
[2024-10-04] MEDS: HYDROmorphone 1 MG/ML 1 ML SYRINGE IVP STA (20:32)
[2024-10-04 21:02] LABS: Appearance,Urine Cloudy (Clear); Bacteria,Urine Occasional /hpf; Bilirubin,Urine Negative (Negative); Blood,Urine Trace (Negative); Color,Urine Dark Brown; Glucose,Urine (UA) Negative (Negative); Hyaline Casts,Urine 9 /lpf (0-2); Ketones,Urine 1+ (Negative); Leukocyte Esterase,Urine Trace (Negative); Mucus,Urine Many /hpf; Nitrite,Urine Negative (Negative); PH, Urine 6.5 (5.0-8.0); Protein,Urine 2+ (Negative); RBC,Urine 18 /hpf (0-5); Specific Gravity,Urine 1.035 (1.001-1.035); Squamous Epithelial Cell,Urine 21 /hpf (0-4); WBC,Urine 2 /hpf (0-5)
[2024-10-04 22:15] VITALS: BP 116/78; PULSE 96; TEMP 98.1
== END 2024-10-04 22:15 | disposition home or self-care (01) ==
LOC: EC 16:32
DX: K52.9 Noninfective gastroenteritis and colitis, unspecified (principal); F17.200 Nicotine dependence, unspecified, uncomplicated; Z88.0 Allergy status to penicillin
CPT/HCPCS: 36415; 93005; 80053; 82150; 83605; 83690; 84484; 85025; 81001; 99284; 96374; 96375 ×2; J2405; J1171; J1885

== ENCOUNTER 2024-10-06 16:31 | Observation (INO) | payer BC ==
--- NOTE | 2024-10-06 17:25 | ED ---
Abdominal Pain HPI - General Source: patient, RN notes reviewed Mode of arrival: ambulatory Limitations: no limitations <MayraThaniaRolo - Last Filed: 10/06/24 17:27> - General Source: patient, RN notes reviewed, old records reviewed Mode of arrival: ambulatory Limitations: no limitations - History of Present Illness MD Complaint: abdominal pain -: week(s) Location: periumbilical, epigastric, suprapubic Radiation: epigastric, suprapubic Migration to: epigastric, suprapubic Severity: moderate Severity scale (1-10): 7 Quality: aching Consistency: intermittent Improves With: nothing Worsens With: nothing Associated Symptoms: nausea, vomiting Treatments Prior to Arrival: other (0) <Carson Salcedo - Last Filed: 10/06/24 22:41> - General Stated Complaint: Recheck-Abd pain,vomiting Time Seen by Provider: 10/06/24 16:47 - History of Present Illness Initial Comments: Quick note: This is a 44-year-old female presenting with ongoing abdominal pain (12/30) x 5 days. Patient states she was originally seen in this ER for the same pain on 10/02/[address] showing infectious colitis due to concurrent leukocytosis and was prescribed Cipro and Flagyl at that time. Patient was seen 1 other time in this ER with no other significant findings and advised to follow-up with Dr. Mitchell.. States pain is intermittent, described as bloating that improves with movement. Endorses associated N/V/D and decreased p.o. intake. Patient is requesting lab work and mainly pain medication. Denies fever, chills, chest pain, dyspnea, hematemesis, hematochezia, melena, dizziness . (Rolo Nunez) This is a 44 female to the ER for evaluation of ongoing abdominal pain going on a week now. Multiple ER visits for persistent symptoms recently showing i nfectious colitis and was put on antibiotics she has had significant pain since with severe nausea vomiting decreased oral intake and not feeling well (Carson Salcedo) - Related Data Home Medications Medication Instructions Recorded Confirmed Dicyclomine [Bentyl] 10 mg PO TID PRN 11/20/22 10/06/24 Amitriptyline HCl [Elavil] 75 mg PO HS 10/06/24 10/06/24 Omeprazole 20 mg PO DAILY 10/06/24 10/06/24 Prochlorperazine [Compazine] 10 mg PO Q8H PRN 10/06/24 10/06/24 Previous Rx's Medication Instructions Recorded Ciprofloxacin HCl [Cipro] 500 mg PO BID #14 tab 10/02/24 HYDROcodone/APAP 5-325MG [[place] 1 tab PO Q6HR PRN 3 Days #12 tab 10/02/24 5-325] metroNIDAZOLE [Flagyl] 500 mg PO TID #21 tab 10/02/24 Allergies Allergy/AdvReac Type Severity Reaction Status Date / Time Penicillins Allergy Unknown Verified 10/06/24 20:45 Childhood Review of Systems ROS Other: All systems not noted in ROS Statement are negative. <Rolo Nunez - Last Filed: 10/06/24 17:27> ROS Other: All systems not noted in ROS Statement are negative. <Carson Salcedo - Last Filed: 10/06/24 22:41> ROS Statement: Those systems with pertinent positive or pertinent negative responses have been documented in the HPI. Past Medical History Past Medical History: GERD/Reflux Additional Past Medical History / Comment(s): Frequent epigastric/abdominal pain, nausea if pain gets too severe, gastritis, diverticulosis, benign colon polyps, bradycardia History of Any Multi-Drug Resistant Organisms: None Reported Past Surgical History: Cholecystectomy, Orthopedic Surgery, Tubal Ligation Additional Past Surgical History / Comment(s): reconstructive surg. left knee after fx., all teeth removed, EGD, colonoscopy, [facility] Past Anesthesia/Blood Transfusion Reactions: Postoperative Nausea & Vomiting (PONV) Past Psychological History: Depression Smoking Status: Current every day smoker Past Alcohol Use History: None Reported Past Drug Use History: Marijuana - Past Family History Mother Additional Family Medical History / Comment(s): gall bladder removed, bleeding ulcer Father Family Medical History: Diabetes Mellitus <Rolo Nunez - Last Filed: 10/06/24 17:27> General Exam <Rolo Nunez - Last Filed: 10/06/24 17:27> General appearance: alert, in no apparent distress Head exam: Present: atraumatic, normocephalic, normal inspection Eye exam: Present: normal appearance, PERRL, EOMI. Absent: scleral icterus, conjunctival injection, periorbital swelling ENT exam: Present: normal exam, mucous membranes moist Neck exam: Present: normal inspection. Absent: tenderness, meningismus, lymphadenopathy Respiratory exam: Present: normal lung sounds bilaterally. Absent: respiratory distress, wheezes, rales, rhonchi, stridor Cardiovascular Exam: Present: regular rate, normal rhythm, normal heart sounds. Absent: systolic murmur, diastolic murmur, rubs, gallop, clicks GI/Abdominal exam: Present: soft, normal bowel sounds. Absent: distended, tenderness, guarding, rebound, rigid Extremities exam: Present: normal inspection, full ROM, normal capillary refill. Absent: tenderness, pedal edema, joint swelling, calf tenderness Back exam: Present: normal inspection Neurological exam: Present: alert, oriented X3, CN II-XII intact Psychiatric exam: Present: normal affect, normal mood Skin exam: Present: warm, dry, intact, normal color. Absent: rash <Carson Salcedo - Last Filed: 10/06/24 22:41> - General Exam Comments Initial Comments: Visual Physical Exam Vital signs reviewed General: Well-appearing, nontoxic, no acute distress. Head: Normocephalic, atraumatic Eyes: PERRLA, EOMI ENT: Airway patent Chest: Nonlabored breathing Skin: No visual rash, normal skin tone Neuro: Alert and oriented 3 Musculoskeletal: No gross abnormalities (Rolo Nunez) Course <Carson Salcedo - Last Filed: 10/06/24 22:41> Vital Signs 10/06/24 17:21 Temperature 98.1 F Pulse Rate 113 H Respiratory 18 Rate Blood Pressure 148/97 O2 Sat by Pulse 95 Oximetry - Reevaluation(s) Reevaluation #1: 10/06/24 22:40 Medical records reviewed (Carson Salcedo) Reevaluation #2: 10/06/24 22:40 Patient symptoms unchanged Patient continues to have abdominal pain and vomiting (Carson Salcedo) Reevaluation #3: 10/06/24 22:40 Patient informed of results questions answered (Carson Salcedo) Reevaluation #4: Was pt. sent in by a medical professional or institution (, PA, SILK OPENER, urgent care, hospital, or assisted...) When possible be specific @ -no Did you speak to anyone other than the patient for history (EMS, parent, family, police, friend...)? What history was obtained from this source @ -no Did you review nursing and triage notes (agree or disagree)? Why? @ -agree Are old charts reviewed (outside hosp., previous admission, EMS record, old EKG, old radiological studies, urgent care reports/EKG's, assisted records)? Report findings @ -yes Differential Diagnosis (chest pain, altered mental status, abdominal pain women, abdominal pain men, vaginal bleeding, weakness, fever, dyspnea, syncope, headache, dizziness, GI bleed, back pain, seizure, CVA, palpatations, mental health, musculoskeletal)? @ -prior EKG interpreted by me (3pts min.). @ -yes X-rays interpreted by me (1pt min.). @ -yes negative for acute disease CT interpreted by me (1pt min.). @ -no U/S interpreted by me (1pt. min.). @ -no What testing was considered but not performed or refused? (CT, X-rays, U/S, labs)? Why? @ -none What meds were considered but not given or refused? Why? @ -none Did you discuss the management of the patient with other professionals (professionals i.e. , PA, SILK OPENER, lab, RT, psych nurse, family welfare social work professor, concrete stone fabricating supervisor, teacher, strategic debriefing officer, cyanide case hardener)? Give summary @ -no Was smoking cessation discussed for >3mins.? @ -no Was critical care preformed (if so, how long)? @ -no Were there social determinants of health that impacted care today? How? (Homelessness, low income, unemployed, alcoholism, drug addiction, transportat ion, low edu. Level, literacy, decrease access to med. care, assisted, rehab)? @ -none Was there de-escalation of care discussed even if they declined (Discuss DNR or withdrawal of care, Hospice)? DNR status @ -no What co-morbidities impacted this encounter? (DM, HTN, Smoking, COPD, CAD, Cancer, CVA, ARF, Chemo, Hep., AIDS, mental health diagnosis, sleep apnea, morbid obesity)? @ -none Was patient admitted / discharged? Hospital course, mention meds given and route, prescriptions, significant lab abnormalities, going to OR and other pertinent info. @ - Undiagnosed new problem with uncertain prognosis? @ -no Drug Therapy requiring intensive monitoring for toxicity (Heparin, Nitro, Insulin, Cardizem)? @ -no Were any procedures done? @ -no Diagnosis/symptom? @ - Acute, or Chronic, or Acute on Chronic? @ -Acute Uncomplicated (without systemic symptoms) or Complicated (systemic symptoms)? @ -Complicated Side effects of treatment? @ -no Exacerbation, Progression, or Severe Exacerbation? @ -exacerbation Poses a threat to life or bodily function? How? (Chest pain, [place], [place], pneumonia, PE, COPD, DKA, ARF, appy, cholecystitis, CVA, Diverticulitis, Homicidal, Suicidal, threat to staff... and all critical care pts) @ -yes (Carson Salcedo) Reevaluation #5: Differential Abdominal Pain Women: Appendicitis, Cholecystitis, diverticulosis, ischemic bowel, pancreatitis, hepatitis, UTI, gastroenteritis, AAA, incarcerated hernia, bowel obstruction, constipation, inflammatory bowel, hepatitis, peptic ulcer disease, splenic infarction, perforated viscus, vulvitis, ovarian torsion, PID, kidney stone, placenta abruption, this is not meant to be an all-inclusive list (Carson Salcedo) - Consultations Consultation #1: Spoke with sound who agrees to admit this patient (Carson Salcedo) Medical Decision Making <Rolo Nunez - Last Filed: 10/06/24 17:27> - Lab Data Result diagrams: 10/06/24 17:35 10/06/24 17:35 <Carson Salcedo - Last Filed: 10/06/24 22:41> - Medical Decision Making I completed the quick note portion of this chart signed ELENA Schwartz (Rolo Nunez) 44 female will be admitted with intractable nausea vomiting intractable abdominal pain multiple visits this past week at 1 point diagnosed with infectious colitis but symptoms have been persistent (Carson Salcedo) - Lab Data Lab Results 10/06/24 10/06/24 10/06/24 Range/Units 17:35 17:35 17:35 WBC 15.8 H (3.8-10.6) k/uL RBC 5.07 (3.80-5.40) m/uL Hgb 15.4 (11.4-16.0) gm/dL Hct 48.1 H (34.0-46.0) % MCV 94.8 (80.0-100.0) fL MCH 30.4 (25.0-35.0) pg MCHC 32.1 (31.0-37.0) g/dL RDW 13.5 (11.5-15.5) % Plt Count 390 (150-450) k/uL MPV 7.3 Neutrophils % 83 % Lymphocytes % 11 % Monocytes % 4 % Eosinophils % 1 % Basophils % 0 % Neutrophils # 13.0 H (1.3-7.7) k/uL Lymphocytes # 1.7 (1.0-4.8) k/uL Monocytes # 0.6 (0-1.0) k/uL Eosinophils # 0.2 (0-0.7) k/uL Basophils # 0.0 (0-0.2) k/uL Sodium 131 L (137-145) mmol/L Potassium 3.5 (3.5-5.1) mmol/L Chloride 90 L (98-107) mmol/L Carbon Dioxide 27 (22-30) mmol/L Anion Gap 14 mmol/L BUN 9 (7-17) mg/dL Creatinine 0.71 (0.52-1.04) mg/dL Est GFR (CKD-EPI)AfAm >90 (>60 ml/min/1.73 sqM) Est GFR (CKD-EPI)NonAf >90 (>60 ml/min/1.73 sqM) Glucose 140 H (74-99) mg/dL Plasma Lactic Acid Wojciech 1.1 (0.7-2.0) mmol/L Calcium 9.4 (8.4-10.2) mg/dL Total Bilirubin 1.2 (0.2-1.3) mg/dL AST 27 (14-36) U/L ALT 23 (4-34) U/L Alkaline Phosphatase 130 H (38-126) U/L Total Protein 7.9 (6.3-8.2) g/dL Albumin 4.9 (3.5-5.0) g/dL Amylase 43 (30-110) U/L Lipase 48 (23-300) U/L Urine Color Urine Appearance (Clear) Urine pH (5.0-8.0) Ur Specific [place] (1.001-1.035) Urine Protein (Negative) Urine Glucose (UA) (Negative) Urine Ketones (Negative) Urine Blood (Negative) Urine Nitrite (Negative) Urine Bilirubin (Negative) Urine Urobilinogen (<2.0) mg/dL Ur Leukocyte Esterase (Negative) Urine RBC (0-5) /hpf Urine WBC (0-5) /hpf Ur Squamous Epith Cells (0-4) /hpf Urine Bacteria (None) /hpf Hyaline Casts (0-2) /lpf Urine Mucus (None) /hpf Urine HCG, Qual (Not Detectd) 10/06/24 10/06/24 Range/Units 18:00 18:00 WBC (3.8-10.6) k/uL RBC (3.80-5.40) m/uL Hgb (11.4-16.0) gm/dL Hct (34.0-46.0) % MCV (80.0-100.0) fL MCH (25.0-35.0) pg MCHC (31.0-37.0) g/dL RDW (11.5-15.5) % Plt Count (150-450) k/uL MPV Neutrophils % % Lymphocytes % % Monocytes % % Eosinophils % % Basophils % % Neutrophils # (1.3-7.7) k/uL Lymphocytes # (1.0-4.8) k/uL Monocytes # (0-1.0) k/uL Eosinophils # (0-0.7) k/uL Basophils # (0-0.2) k/uL Sodium (137-145) mmol/L Potassium (3.5-5.1) mmol/L Chloride (98-107) mmol/L Carbon Dioxide (22-30) mmol/L Anion Gap mmol/L BUN (7-17) mg/dL Creatinine (0.52-1.04) mg/dL Est GFR (CKD-EPI)AfAm (>60 ml/min/1.73 sqM) Est GFR (CKD-EPI)NonAf (>60 ml/min/1.73 sqM) Glucose (74-99) mg/dL Plasma Lactic Acid Wojciech (0.7-2.0) mmol/L Calcium (8.4-10.2) mg/dL Total Bilirubin (0.2-1.3) mg/dL AST (14-36) U/L ALT (4-34) U/L Alkaline Phosphatase (38-126) U/L Total Protein (6.3-8.2) g/dL Albumin (3.5-5.0) g/dL Amylase (30-110) U/L Lipase (23-300) U/L Urine Color Dark Brown Urine Appearance Cloudy H (Clear) Urine pH 7.5 (5.0-8.0) Ur Specific [place] 1.037 H (1.001-1.035) Urine Protein 2+ H (Negative) Urine Glucose (UA) Negative (Negative) Urine Ketones 1+ H (Negative) Urine Blood Negative (Negative) Urine Nitrite Negative (Negative) Urine Bilirubin Negative (Negative) Urine Urobilinogen 2.0 (<2.0) mg/dL Ur Leukocyte Esterase Small H (Negative) Urine RBC 10 H (0-5) /hpf Urine WBC 2 (0-5) /hpf Ur Squamous Epith Cells 15 H (0-4) /hpf Urine Bacteria Few H (None) /hpf Hyaline Casts 1 (0-2) /lpf Urine Mucus Many H (None) /hpf Urine HCG, Qual Not Detected (Not Detectd) Disposition <Rolo Nunez - Last Filed: 10/06/24 17:27> Is patient prescribed a controlled substance at d/c from ED?: No Time of Disposition: 22:00 <Carson Salcedo - Last Filed: 10/06/24 22:41> Clinical Impression: Intractable nausea and vomiting, Nausea & vomiting, Abdominal pain Disposition: ADMITTED IP TO THIS HOSP Condition: Fair
[2024-10-06 17:43] LABS: Basophils % (A) 0 %; Eosinophils # (A) 0.2 k/uL (0-0.7); Eosinophils % (A) 1 %; HCT 48.1 % (34.0-46.0); HGB 15.4 gm/dL (11.4-16.0); Lymphocytes # (A) 1.7 k/uL (1.0-4.8); Lymphocytes % (A) 11 %; MCH 30.4 pg (25.0-35.0); MCHC 32.1 g/dL (31.0-37.0); MCV 94.8 fL (80.0-100.0); Mean Platelet Volume 7.3; Monocytes # (A) 0.6 k/uL (0-1.0); Monocytes % (A) 4 %; Neutrophils % (A) 83 %; Platelet Count 390 k/uL (150-450); RBC 5.07 m/uL (3.80-5.40); RDW 13.5 % (11.5-15.5); WBC 15.8 k/uL (3.8-10.6)
[2024-10-06 17:53] LABS: ALT 23 U/L (4-34); AST 27 U/L (14-36); African American GFR (CKD) >90 (>60 ml/min/1.73 sqM); Albumin 4.9 g/dL (3.5-5.0); Alkaline Phosphatase 130 U/L (38-126); Amylase 43 U/L (30-110); Anion Gap 14 mmol/L; Blood Urea Nitrogen 9 mg/dL (7-17); Calcium 9.4 mg/dL (8.4-10.2); Carbon Dioxide 27 mmol/L (22-30); Chloride 90 mmol/L (98-107); Glucose 140 mg/dL (74-99); Lipase 48 U/L (23-300); Non-African American GFR(CKD) >90 (>60 ml/min/1.73 sqM); Potassium 3.5 mmol/L (3.5-5.1); Sodium 131 mmol/L (137-145); Total Bilirubin 1.2 mg/dL (0.2-1.3); Total Protein 7.9 g/dL (6.3-8.2)
[2024-10-06 18:19] LABS: Appearance,Urine Cloudy (Clear); Bacteria,Urine Few /hpf; Bilirubin,Urine Negative (Negative); Blood,Urine Negative (Negative); Color,Urine Dark Brown; Glucose,Urine (UA) Negative (Negative); Hyaline Casts,Urine 1 /lpf (0-2); Ketones,Urine 1+ (Negative); Leukocyte Esterase,Urine Small (Negative); Mucus,Urine Many /hpf; Nitrite,Urine Negative (Negative); PH, Urine 7.5 (5.0-8.0); Protein,Urine 2+ (Negative); RBC,Urine 10 /hpf (0-5); Specific Gravity,Urine 1.037 (1.001-1.035); Squamous Epithelial Cell,Urine 15 /hpf (0-4); WBC,Urine 2 /hpf (0-5)
[2024-10-06] MEDS: SODIUM CHLORIDE 0.9% 1,000 ML IV SCH (21:37)
[2024-10-06] MEDS: PANTOPRAZOLE 40 MG/10 ML VIAL IVP STA (21:39)
[2024-10-06] MEDS: PROCHLORPERAZINE INJ 10 MG/2 ML VIAL IVP STA (21:41)
[2024-10-06] MEDS: diphenhydrAMINE 50 MG/ML 1 ML VIAL IVP STA (21:43)
[2024-10-06] MEDS ORDERED: ONDANSETRON 4 MG/2 ML VIAL IVP PRN (22:16)
[2024-10-06] MEDS ORDERED: NALOXONE 0.4 MG/ML 1 ML VIAL IV PRN (22:16)
[2024-10-06] MEDS ORDERED: MORPHINE SULFATE 4 MG/ML SYRINGE IV PRN (22:16)
[2024-10-06] MEDS: HYDROmorphone 1 MG/ML 1 ML SYRINGE IVP STA (22:20)
[2024-10-06] MEDS: DEXTROSE 5%-0.45% NACL 1,000 ML IV ONE (22:44)
[2024-10-07] MEDS ORDERED: DICYCLOMINE 10 MG CAP PO PRN (01:25)
[2024-10-07] MEDS ORDERED: HYDROcodone/APAP 5-325MG 1 EACH TAB PO PRN (01:25)
--- NOTE | 2024-10-07 01:46 | P.HPIM ---
History of Present Illness H&P Date: 10/06/24 Patient is a 44-year-old female with GERD, gastritis presenting with abdominal pain. Patient states she has previous seen in this ER on 10/02/2024 and 10/04/2024 for similar pain. Prior abdominal CT showed acute colitis and was prescribed Cipro and Flagyl. She was advised to follow-up with Dr. Delgado outpatient as well. She states she has been dealing with chronic abdominal pain for the past 9 years. The pain comes and goes in cycles. States that this most recent pain occurred 5 days ago and describes it as an intermittent dull non-radiating 6/10 pain. She said the pain is mostly located in her right upper quadrant region, states that she has had her gallbladder removed. Endorses bloating and associated nausea, non-bloody emesis (last episode was this morning), and decreased oral intake. Patient is a [id number] smoker, chronic everyday marijuana smoker as well. Patient denies any fever, chills, headache, chest pain, shortness of breath, urinary symptoms. Denies any increase in severity of her symptoms since her last visit. 98.1 F, CA 113, RR 18, BP 148/97, O2 sat 95% on room air UA showing 2+ urine protein, 1+ urine ketones, urine RBC 10, urine squamous epithelial cells 15 Review of systems: Pertinent positives and negatives as discussed in HPI, a complete review of sy stems was performed and all other systems are negative. Physical examination: Vital signs reviewed General: non toxic, no distress, appears at stated age, normal weight Derm: no unusual rashes/lesions, warm Head: atraumatic, normocephalic, symmetric Eyes: EOMI, anicteric sclera, pupils equal round reactive to light ENT: Nose and ears atraumatic Mouth: no lip lesion, mucus membranes moist Cardiovascular: S1S2 reg, no murmur, positive dorsalis pedis pulse bilateral, no edema Lungs: CTA bilateral, no rhonchi, no rales, no accessory muscle use Abdominal: soft, right upper quadrant tender to palpation, no guarding Ext: muscle strength 5 out of 5 in all 4 extremities grossly, no gross muscle atrophy Neuro: CN II-XI grossly intact, no gross focal neuro deficits Psych: Alert, oriented to person, place, and time Assessment/Plan: Patient is a 44-year-old female with GERD presenting with abdominal pain. ED documentation reviewed. Discussed with patient. The patient is admitted with an anticipated greater than 2 midnight stay for evaluation of acute on chronic abdominal pain. #. Abdominal pain, intractable vomiting WBC 15.8, lipase 48, amylase [address] abdomen on 10/02 showed acute colitis of the left sigmoid colon Sepsis score 1 due to tachycardia, low risk On clear liquid diet D5 .45 at 75 cc/hr Continue with Cipro 500 mg PO BID and Flagyl 500 mg PO TID Protonix 40 mg PO daily Zofran 4 mg IVP q8hr prn History of every day recreational marijuana smoking, counseled patient on cessation, patient plans not to quit #. Mild hyponatremia NA 131 Likely in the setting of decreased oral intake, dehydration, vomiting D5 .45 at 75 cc/hr #. Asymptomatic bacteriuria Patient denies any dysuria, urinary frequency/urgency Inconclusive UA due to high squamous epithelial cells DVT prophylaxis: Lovenox 40 SQ daily CODE STATUS: Full code Anticipated discharge place: Pending clinical course Raulito Batres MD PGY-1 IM Dictation was produced using [employer] dictation software. please excuse any grammatical, word or spelling errors. I have seen and evaluated the patient today. I Discussed the case with the resident and agree with the resident's findings I edited the assessment and plan as necessary as documented in the resident's note. Past Medical History Past Medical History: GERD/Reflux Additional Past Medical History / Comment(s): Frequent epigastric/abdominal pain, nausea if pain gets too severe, gastritis, diverticulosis, benign colon polyps, bradycardia History of Any Multi-Drug Resistant Organisms: None Reported Past Surgical History: Cholecystectomy, Orthopedic Surgery, Tubal Ligation Additional Past Surgical History / Comment(s): reconstructive surg. left knee after fx., all teeth removed, EGD, colonoscopy, [facility] Past Anesthesia/Blood Transfusion Reactions: Postoperative Nausea & Vomiting (PONV) Past Psychological History: Depression Smoking Status: Current every day smoker Past Alcohol Use History: None Reported Past Drug Use History: Marijuana - Past Family History Mother Additional Family Medical History / Comment(s): gall bladder removed, bleeding ulcer Father Family Medical History: Diabetes Mellitus Medications and Allergies Home Medications Medication Instructions Recorded Confirmed Type Dicyclomine [Bentyl] 10 mg PO TID PRN 11/20/22 10/06/24 History Ciprofloxacin HCl [Cipro] 500 mg PO BID #14 tab 10/02/24 10/06/24 Rx HYDROcodone/APAP 5-325MG [[place] 1 tab PO Q6HR PRN 3 Days #12 tab 10/02/24 10/06/24 Rx 5-325] metroNIDAZOLE [Flagyl] 500 mg PO TID #21 tab 10/02/24 10/06/24 Rx Amitriptyline HCl [Elavil] 75 mg PO HS 10/06/24 10/06/24 History Omeprazole 20 mg PO DAILY 10/06/24 10/06/24 History Prochlorperazine [Compazine] 10 mg PO Q8H PRN 10/06/24 10/06/24 History Allergies Allergy/AdvReac Type Severity Reaction Status Date / Time Penicillins Allergy Unknown Verified 10/06/24 20:45 Childhood Physical Exam Vitals: Vital Signs Temp Pulse Resp BP Pulse Ox 10/06/24 17:21 98.1 F 113 H 18 148/97 95 Intake and Output 10/06/24 10/06/24 10/07/24 14:59 22:59 06:59 Other: Weight 72.575 kg Results CBC & Chem 7: 10/06/24 17:35 10/06/24 17:35 Labs: Abnormal Lab Results - Last 24 Hours (Table) 10/06/24 10/06/24 10/06/24 Range/Units 17:35 17:35 18:00 WBC 15.8 H (3.8-10.6) k/uL Hct 48.1 H (34.0-46.0) % Neutrophils # 13.0 H (1.3-7.7) k/uL Sodium 131 L (137-145) mmol/L Chloride 90 L (98-107) mmol/L Glucose 140 H (74-99) mg/dL Alkaline Phosphatase 130 H (38-126) U/L Urine Appearance Cloudy H (Clear) Ur Specific [place] 1.037 H (1.001-1.035) Urine Protein 2+ H (Negative) Urine Ketones 1+ H (Negative) Ur Leukocyte Esterase Small H (Negative) Urine RBC 10 H (0-5) /hpf Ur Squamous Epith Cells 15 H (0-4) /hpf Urine Bacteria Few H (None) /hpf Urine Mucus Many H (None) /hpf
[2024-10-07 05:47] LABS: Basophils # (A) 0.1 k/uL (0-0.2); Basophils % (A) 0 %; Eosinophils # (A) 0.3 k/uL (0-0.7); Eosinophils % (A) 3 %; HCT 40.2 % (34.0-46.0); HGB 12.6 gm/dL (11.4-16.0); Lymphocytes # (A) 2.8 k/uL (1.0-4.8); Lymphocytes % (A) 25 %; MCH 30.3 pg (25.0-35.0); MCHC 31.3 g/dL (31.0-37.0); MCV 96.8 fL (80.0-100.0); Mean Platelet Volume 7.4; Monocytes # (A) 0.6 k/uL (0-1.0); Monocytes % (A) 5 %; Neutrophils # (A) 7.3 k/uL (1.3-7.7); Neutrophils % (A) 65 %; Platelet Count 290 k/uL (150-450); RBC 4.15 m/uL (3.80-5.40); RDW 13.5 % (11.5-15.5); WBC 11.3 k/uL (3.8-10.6)
[2024-10-07 05:58] LABS: ALT 19 U/L (4-34); AST 25 U/L (14-36); African American GFR (CKD) >90 (>60 ml/min/1.73 sqM); Albumin 3.6 g/dL (3.5-5.0); Alkaline Phosphatase 83 U/L (38-126); Anion Gap 7 mmol/L; Blood Urea Nitrogen 5 mg/dL (7-17); Calcium 8.5 mg/dL (8.4-10.2); Carbon Dioxide 31 mmol/L (22-30); Chloride 94 mmol/L (98-107); Glucose 95 mg/dL (74-99); Lipase 39 U/L (23-300); Magnesium 1.9 mg/dL (1.6-2.3); Non-African American GFR(CKD) >90 (>60 ml/min/1.73 sqM); Phosphorus 3.3 mg/dL (2.5-4.5); Potassium 2.9 mmol/L (3.5-5.1); Sodium 132 mmol/L (137-145); Total Protein 5.9 g/dL (6.3-8.2)
[2024-10-07] MEDS: ENOXAPARIN 40 MG/0.4 ML SYRINGE SQ SCH (08:42)
[2024-10-07] MEDS: PANTOPRAZOLE 40 MG TABLET PO SCH (08:42)
[2024-10-07] MEDS: metroNIDAZOLE 500 MG TAB PO SCH (08:42)
[2024-10-07] MEDS: CIPROFLOXACIN HCL 500 MG TAB PO SCH (08:43)
[2024-10-07] MEDS: POTASSIUM CHLORIDE ER 20 MEQ TAB.ER PO SCH (10:25)
--- NOTE | 2024-10-07 12:21 | P.PN ---
Subjective Progress Note Date: 10/07/24 Hospital course: Patient is a 44-year-old female with a past medical history of GERD, chronic abdominal pain x 9 years, daily cannabis use/abuse, and gastritis. She presented to the emergency department on 10/06/2024 with a chief complaint of abdominal pain. Patient has had multiple ER visits for similar complaints on 10/02/2024 and 10/04/2024. She was diagnosed with colitis and prescribed Cipro and Flagyl and advised to follow-up outpatient with logistics lead. Upon facility patient underwent evaluation in the emergency department. Vital signs upon arrival show blood pressure 148/97, heart rate 113, respiratory rate 18, temp 98.1 F, and SpO2 of 95% on room air. Labs completed and reviewed. CBC showing leukocytosis with WBC count of 15.8 and elevated hematocrit of 48.1. BMP showing hypochloremic hyponatremia with sodium of 131 and chloride of 90. Blood glucose 140. Lactic acid 1.1. Liver profile showing elevated alkaline phosphatase of 130 otherwise normal findings. Urinalysis was a contaminated specimen positive for protein, ketones, small percentage of leukocyte esterase, and 10 RBCs only 2 WBCs not concerning for infection. Physical exam: Patient seen and fully evaluated at bedside this morning. She reports full resolution of abdominal pain, nausea, and vomiting. She is tolerating clear liquid diet. Patient reports only pain is hunger pains. Discussed with patient we will advance diet and if tolerates plan for discharge later today. Vital signs reviewed and stable. General: Nontoxic, no distress and appears stated age. Derm: Skin warm and dry, normal coloration for ethnicity. Head: Atraumatic, normocephalic and symmetric. Eyes: EOM's intact, no lid lag, and anicteric sclera Mouth: no lip lesions, mucus membranes moist Cardiovascular: regular rate and rhythm with normal S1S2, no murmur, positive posterior tibial pulses bilaterally, and cap refill < 2 seconds. Lungs: Respirations even, regular, and unlabored on room air. Lungs CTA bilaterally, no rhonchi, no rales, no wheezing, and no accessory muscle usage. Abdominal: soft, nontender to palpation, no guarding, no appreciable organomegaly Ext: ROM intact. No gross muscle atrophy, no edema, no contractures Neuro: Speech clear, face symmetrical and CN II-XII grossly intact with no noted focal neuro deficits Psych: Alert and oriented to person, place, time, and situation. Appropriate and pleasant affect. Assessment and Plan of Care: Cyclic vomiting, possibly secondary to gastritis versus cannabinoid hyperemesis Abdominal pain -Initial WBC 15.8, lipase 48, amylase 43. Improved with WBC count of 11.3 and lipase of 39. -Previous CT abdomen on 10/02 showed acute colitis of the left sigmoid colon -Sepsis score 1 due to tachycardia, low risk -Advance diet to low fat diet as patient tolerates. -Continue with Cipro 500 mg PO BID and Flagyl 500 mg PO TID -Protonix 40 mg PO daily -Zofran 4 mg IVP q8hr prn -History of every day recreational marijuana smoking, counseled patient on cessation, patient plans not to quit Hypokalemia -Potassium was 2.9. Orders placed for K-Dur 40 mEq p.o. every 2 hours x 2 doses. Mild hyponatremia -Improving sodium 132. Asymptomatic bacteriuria -Patient denies any dysuria, urinary frequency/urgency. Urinalysis contaminated but not concerning for UTI. Data and imaging reviewed:. -Morning labs reviewed. CBC showing improvement of leukocytosis with WBC count decreasing from 15.8 down to 11.3 and otherwise unremarkable. BMP showing hyponatremia of 132, hypokalemia with potassium of 2.9, chloride 94, bicarb 31, and anion gap of 7. Blood glucose 95. Magnesium 1.9. Liver profile unremarkable with exception of low total protein of 5.9. Lipase 39. -Vital signs reviewed. Blood pressure 123/81, heart rate 78, respiratory rate 16, temp 97.8 F, and SpO2 of 90% on room air. CODE STATUS: Full code DVT prophylaxis: Lovenox Discussed with: Patient and RN Anticipated discharge date: Within the next 24 hours, likely later today pending how well pt tolerates advancement of diet. . Anticipated discharge place: Home Patient was seen independently by Nurse Pracitioner. This document was prepared using [employer] dictation software. Please allow for errors in flanging operator, while rare they do occur. Lorenzo Reyes NP rendered care for this patient independently, reviewed the findings and plan as documented in the note above and agree with plan. I did not physically speak with or examine the patient on this date. Objective - Vital Signs Vital signs: Vital Signs Temp 97.8 F 10/07/24 07:45 Pulse 78 10/07/24 07:45 Resp 16 10/07/24 07:45 BP 123/81 10/07/24 07:45 Pulse Ox 98 10/07/24 07:45 FiO2 Intake & Output 10/06/24 10/07/24 10/07/24 18:59 06:59 18:59 Weight 72.575 kg - Labs CBC & Chem 7: 10/07/24 04:44 10/07/24 04:44 Labs: Abnormal Lab Results - Last 24 Hours (Table) 10/06/24 10/06/24 10/06/24 Range/Units 17:35 17:35 18:00 WBC 15.8 H (3.8-10.6) k/uL Hct 48.1 H (34.0-46.0) % Neutrophils # 13.0 H (1.3-7.7) k/uL Sodium 131 L (137-145) mmol/L Potassium (3.5-5.1) mmol/L Chloride 90 L (98-107) mmol/L Carbon Dioxide (22-30) mmol/L BUN (7-17) mg/dL Glucose 140 H (74-99) mg/dL Alkaline Phosphatase 130 H (38-126) U/L Total Protein (6.3-8.2) g/dL Urine Appearance Cloudy H (Clear) Ur Specific [place] 1.037 H (1.001-1.035) Urine Protein 2+ H (Negative) Urine Ketones 1+ H (Negative) Ur Leukocyte Esterase Small H (Negative) Urine RBC 10 H (0-5) /hpf Ur Squamous Epith Cells 15 H (0-4) /hpf Urine Bacteria Few H (None) /hpf Urine Mucus Many H (None) /hpf 10/07/24 10/07/24 Range/Units 04:44 04:44 WBC 11.3 H (3.8-10.6) k/uL Hct (34.0-46.0) % Neutrophils # (1.3-7.7) k/uL Sodium 132 L (137-145) mmol/L Potassium 2.9 L (3.5-5.1) mmol/L Chloride 94 L (98-107) mmol/L Carbon Dioxide 31 H (22-30) mmol/L BUN 5 L (7-17) mg/dL Glucose (74-99) mg/dL Alkaline Phosphatase (38-126) U/L Total Protein 5.9 L (6.3-8.2) g/dL Urine Appearance (Clear) Ur Specific [place] (1.001-1.035) Urine Protein (Negative) Urine Ketones (Negative) Ur Leukocyte Esterase (Negative) Urine RBC (0-5) /hpf Ur Squamous Epith Cells (0-4) /hpf Urine Bacteria (None) /hpf Urine Mucus (None) /hpf
[2024-10-07 13:18] VITALS: BP 117/76; PULSE 83; RESP 18; TEMP 98.2
--- NOTE | 2024-10-07 15:56 | P.DS ---
Providers Date of admission: 10/06/24 22:16 Expected date of discharge: 10/07/24 Attending physician: Jelly Douglass MD Primary care physician: Stated None Hospital Course: Discharge Diagnosis: Cyclic vomiting, possibly secondary to gastritis versus cannabinoid hyperemesis. Resolved. Patient provided with gentle IV fluid hydration had no further episodes of nausea or vomiting. Diet slowly advanced and patient tolerating regular low-fat diet and denied any abdominal pain/discomfort, gastric reflux, nausea, or vomiting. Patient medically optimized for discharge. Recommend establishing and following up with residency clinic for PCP and outpatient follow-up with strategic intelligence officer. Abdominal pain, secondary to above. Resolved. Hypokalemia. Potassium was 2.9. Orders placed for K-Dur 40 mEq p.o. every 2 hours x 2 doses. Mild hyponatremia. Improved with IV hydration. Sodium 132 on day of discharge. Asymptomatic bacteriuria. Patient denies any dysuria, urinary frequency/urgency/hematuria. Urinalysis contaminated, and not concerning for UTI. Hospital course: Patient is a 44-year-old female with a past medical history of GERD, chronic abdominal pain x 9 years, daily cannabis use/abuse, and gastritis. She presented to the emergency department on 10/06/2024 with a chief complaint of abdominal pain. Patient has had multiple ER visits for similar complaints on 10/02/2024 and 10/04/2024. She was diagnosed with colitis and prescribed Cipro and Flagyl and advised to follow-up outpatient with strategic intelligence officer. Upon facility patient underwent evaluation in the emergency department. Vital signs upon arrival show blood pressure 148/97, heart rate 113, respiratory rate 18, temp 98.1 F, and SpO2 of 95% on room air. Labs completed and reviewed. CBC showing leukocytosis with WBC count of 15.8 and elevated hematocrit of 48.1. BMP showing hypochloremic hyponatremia with sodium of 131 and chloride of 90. Blood glucose 140. Lactic acid 1.1. Liver profile showing elevated alkaline phosphatase of 130 otherwise normal findings. Urinalysis was a contaminated specimen positive for protein, ketones, small percentage of leukocyte esterase, and 10 RBCs only 2 WBCs not concerning for infection. Patient provided with gentle IV fluid hydration had no further episodes of nausea or vomiting. Diet slowly advanced and patient tolerating regular low-fat diet and denied any abdominal pain/discomfort, gastric reflux, nausea, or vomiting. Patient medically optimized for discharge. Recommend establishing and following up with residency clinic for PCP and outpatient follow-up with strategic intelligence officer. Physical exam: Vital signs reviewed and stable. General: Nontoxic, no distress and appears stated age. Derm: Skin warm and dry, normal coloration for ethnicity. Head: Atraumatic, normocephalic and symmetric. Eyes: EOM's intact, no lid lag, and anicteric sclera Mouth: no lip lesions, mucus membranes moist Cardiovascular: regular rate and rhythm with normal S1S2, no murmur, positive posterior tibial pulses bilaterally, and cap refill < 2 seconds. Lungs: Respirations even, regular, and unlabored on room air. Lungs CTA bilaterally, no rhonchi, no rales, no wheezing, and no accessory muscle usage. Abdominal: soft, nontender to palpation, no guarding, no appreciable organomegaly Ext: ROM intact. No gross muscle atrophy, no edema, no contractures Neuro: Speech clear, face symmetrical and CN II-XII grossly intact with no noted focal neuro deficits Psych: Alert and oriented to person, place, time, and situation. Appropriate and pleasant affect. A total of 31 minutes of time were spent preparing this complex discharge summary. Pt was discharged on 10/07/2024 at 3:48 PM Patient was seen independently by Nurse Practitioner. This document was prepared using [employer] dictation software. Please allow for errors in histology assistant while rare they do occur. Lorenzo Reyes NP rendered care for this patient independently, reviewed the findings and plan as documented in the note above. I did not physically speak with or examine the patient on this date. Patient Condition at Discharge: Stable Plan - Discharge Summary Discharge Rx Participant: No New Discharge Prescriptions: Continue Dicyclomine [Bentyl] 10 mg PO TID PRN PRN Reason: CRAMPING metroNIDAZOLE [Flagyl] 500 mg PO TID #21 tab Amitriptyline HCl [Elavil] 75 mg PO HS Omeprazole 20 mg PO DAILY Ciprofloxacin HCl [Cipro] 500 mg PO BID #14 tab HYDROcodone/APAP 5-325MG [[place] 5-325] 1 tab PO Q6HR PRN 3 Days #12 tab PRN Reason: Severe Breakthrough Pain Changed Prochlorperazine [Compazine] 10 mg PO Q8H PRN #20 tablet PRN Reason: Nausea Discharge Medication List Dicyclomine [Bentyl] 10 mg PO TID PRN 11/20/22 [History] Ciprofloxacin HCl [Cipro] 500 mg PO BID #14 tab 10/02/24 [Rx] HYDROcodone/APAP 5-325MG [[place] 5-325] 1 tab PO Q6HR PRN 3 Days #12 tab 10/02/24 [Rx] metroNIDAZOLE [Flagyl] 500 mg PO TID #21 tab 10/02/24 [Rx] Amitriptyline HCl [Elavil] 75 mg PO HS 10/06/24 [History] Omeprazole 20 mg PO DAILY 10/06/24 [History] Prochlorperazine [Compazine] 10 mg PO Q8H PRN #20 tablet 10/07/24 [Rx] Follow up Appointment(s)/Referral(s): Savannah Mitchell MD [STAFF PHYSICIAN] - 1 Week [facility] [NON-STAFF] - 1-2 Days (Please call and schedule appointment for first available post hospitalization follow up and recommended repeat labs for electrolytes prior to discharging patient.) Patient Instructions/Handouts: Gastritis (DC), Cannabis Abuse (DC), Cyclic Vomiting Syndrome (DC) Activity/Diet/Wound Care/Special Instructions: Activity: As tolerated. Take breaks as needed. Diet: Low-fat diet Special Instructions: Take all of your medications as directed and remember to keep all of your doctor 's appointments and follow-up as needed. Strongly recommend cessation of any and all cannabis use. Thank you for allowing us to participate in your care, it was truly a pleasure having you for our patient!!! Discharge Disposition: HOME SELF-CARE
[2024-10-07] MEDS ORDERED: AMITRIPTYLINE HCL 25 MG TAB PO SCH (21:00)
== END 2024-10-07 17:11 | disposition home or self-care (01) ==
LOC: EC 16:31 → 5NMEDONC 22:16 → INTOOBSV 22:16 → 5NMEDONC 10-07 06:16
PROVIDERS: ADMIT Internal Medicine; ATTEND Internal Medicine
DX: R10.33 Periumbilical pain (principal); R11.10 Vomiting, unspecified; E87.6 Hypokalemia; E87.1 Hypo-osmolality and hyponatremia; R82.71 Bacteriuria; K21.9 Gastro-esophageal reflux disease without esophagitis; F32.A Depression, unspecified; F17.200 Nicotine dependence, unspecified, uncomplicated; Z79.899 Other long term (current) drug therapy; Z88.0 Allergy status to penicillin
CPT/HCPCS: 96372; 96374; 96375; 99285; 36415; 80053 ×2; 82150; 83605; 83690 ×2; 83735; 84100; 85025 ×2; 81001; 81025; G0378 ×2; J1200; J0780; J1650; J1171; J2470

== ENCOUNTER 2024-10-21 16:07 | Emergency (ER) | payer BC ==
[2024-10-21 16:38] VITALS: RESP 20
--- NOTE | 2024-10-21 17:28 | ED ---
Abdominal Pain HPI - General Source: patient Mode of arrival: ambulatory Limitations: no limitations <Kanika Leblanc - Last Filed: 10/21/24 18:59> <Marilyn Ross - Last Filed: 10/22/24 00:28> - General Chief Complaint: Abdominal Pain Stated Complaint: Abd Pain Time Seen by Provider: 10/21/24 17:18 - History of Present Illness Initial Comments: 44-year-old female with a past medical history significant of GERD presented the ER for evaluation of nausea, vomiting and abdominal pain. Patient states has been intermittent over the past 2 years. She states today she has not been able to keep anything down including liquids. She also reports mild diarrhea. She denies any hematic emesis, coffee ground emesis, hematochezia or melena. Patient has not taken anything for symptoms at this time. She denies any urina ry complaints, fevers, chills. No prior bowel surgeries. (Kanika Leblanc) - Related Data Home Medications Medication Instructions Recorded Confirmed Dicyclomine [Bentyl] 10 mg PO TID PRN 11/20/22 10/06/24 Amitriptyline HCl [Elavil] 75 mg PO HS 10/06/24 10/06/24 Omeprazole 20 mg PO DAILY 10/06/24 10/06/24 Previous Rx's Medication Instructions Recorded Ciprofloxacin HCl [Cipro] 500 mg PO BID #14 tab 10/02/24 HYDROcodone/APAP 5-325MG [[place] 1 tab PO Q6HR PRN 3 Days #12 tab 10/02/24 5-325] metroNIDAZOLE [Flagyl] 500 mg PO TID #21 tab 10/02/24 Prochlorperazine [Compazine] 10 mg PO Q8H PRN #20 tablet 10/07/24 Allergies Allergy/AdvReac Type Severity Reaction Status Date / Time Penicillins Allergy Unknown Verified 10/21/24 16:37 Childhood Review of Systems ROS Other: All systems not noted in ROS Statement are negative. <Kanika Leblanc - Last Filed: 10/21/24 18:59> ROS Other: All systems not noted in ROS Statement are negative. <Marilyn Ross - Last Filed: 10/22/24 00:28> ROS Statement: Those systems with pertinent positive or pertinent negative responses have been documented in the HPI. Past Medical History Past Medical History: GERD/Reflux Additional Past Medical History / Comment(s): Frequent epigastric/abdominal pain, nausea if pain gets too severe, gastritis, diverticulosis, benign colon polyps, bradycardia History of Any Multi-Drug Resistant Organisms: None Reported Past Surgical History: Cholecystectomy, Orthopedic Surgery, Tubal Ligation Additional Past Surgical History / Comment(s): reconstructive surg. left knee after fx., all teeth removed, EGD, colonoscopy, [facility] Past Anesthesia/Blood Transfusion Reactions: Postoperative Nausea & Vomiting (PONV) Past Psychological History: Depression Smoking Status: Current every day smoker Past Alcohol Use History: None Reported Past Drug Use History: Marijuana - Past Family History Mother Additional Family Medical History / Comment(s): gall bladder removed, bleeding ulcer Father Family Medical History: Diabetes Mellitus <Kanika Leblanc - Last Filed: 10/21/24 18:59> General Exam Limitations: no limitations General appearance: alert, in no apparent distress Respiratory exam: Present: normal lung sounds bilaterally. Absent: respiratory distress, wheezes, rales, rhonchi, stridor Cardiovascular Exam: Present: regular rate, normal rhythm, normal heart sounds. Absent: systolic murmur, diastolic murmur, rubs, gallop, clicks GI/Abdominal exam: Present: soft, tenderness (Epigastric), normal bowel sounds Neurological exam: Present: alert, oriented X3, CN II-XII intact Skin exam: Present: warm, dry, intact, normal color. Absent: rash <Kanika Leblanc - Last Filed: 10/21/24 18:59> Course Vital Signs 10/21/24 10/21/24 10/21/24 16:34 17:54 21:06 Temperature 97 F L 97.3 F L Pulse Rate 81 89 86 Respiratory 20 20 20 Rate Blood Pressure 147/89 138/98 129/82 O2 Sat by Pulse 96 99 99 Oximetry Medical Decision Making - Lab Data Result diagrams: 10/21/24 17:38 10/21/24 17:38 - EKG Data -: EKG Interpreted by Ks <Kanika Leblanc - Last Filed: 10/21/24 18:59> - Lab Data Result diagrams: 10/21/24 17:38 10/21/24 17:38 <Marilyn Ross - Last Filed: 10/22/24 00:28> - Medical Decision Making Was pt. sent in by a medical professional or institution ([facility], [facility], urgent care, hospital, or care home...) When possible be specific @ -No Did you speak to anyone other than the patient for history (EMS, parent, family, police, friend...)? What history was obtained from this source @ -No Did you review nursing and triage notes (agree or disagree)? Why? @ -I reviewed and agree with nursing and triage notes Were old charts reviewed (outside hosp., previous admission, EMS record, old EKG, old radiological studies, urgent care reports/EKG's, care home records)? Report findings @ -No old charts were reviewed Differential Diagnosis (chest pain, altered mental status, abdominal pain women, abdominal pain men, vaginal bleeding, weakness, fever, dyspnea, syncope, headache, dizziness, GI bleed, back pain, seizure, CVA, palpatations, mental health, musculoskeletal)? @ -Differential Abdominal Pain Women:Appendicitis, Cholecystitis, diverticulosis, ischemic bowel, pancreatitis, hepatitis, UTI, gastroenteritis, AAA, incarcerated hernia, bowel obstruction, constipation, inflammatory bowel, hepatitis, peptic ulcer disease, splenic infarction, perforated viscus, vulvitis, ovarian torsion, PID, kidney stone, placenta abruption, this is not meant to be an all-inclusive list EKG interpreted by me (3pts min.). @ -As above X-rays interpreted by me (1pt min.). @ -None done CT interpreted by me (1pt min.). @ -None done U/S interpreted by me (1pt. min.). @ -None done What testing was considered but not performed or refused? (CT, X-rays, U/S, labs)? Why? @ -None What meds were considered but not given or refused? Why? @ -None Did you discuss the management of the patient with other professionals (professionals i.e. [facility], [employer], lab, RT, psych nurse, social services aide, on call pharmacy technician, teacher, technology officer, upper caser)? Give summary @ -No Was smoking cessation discussed for >3mins.? @ -No Was critical care preformed (if so, how long)? @ -No Were there social determinants of health that impacted care today? How? (Homelessness, low income, unemployed, alcoholism, drug addiction, transportation, low edu. Level, literacy, decrease access to med. care, half-way, rehab)? @ -No Was there de-escalation of care discussed even if they declined (Discuss DNR or withdrawal of care, Hospice)? DNR status @ -No What co-morbidities impacted this encounter? (DM, HTN, Smoking, COPD, CAD, Cancer, CVA, ARF, Chemo, Hep., AIDS, mental health diagnosis, sleep apnea, morbid obesity)? @ -None Was patient admitted / discharged? Hospital course, mention meds given and route, prescriptions, significant lab abnormalities, going to OR and other pertinent info. @ -44-year-old female presented the ER for evaluation of nausea, vomiting and abdominal pain. Upon rooming, history and physical exam completed. Vitals within acceptable limits. There is focal epigastric/right upper quadrant abdominal tenderness. Laboratory studies obtained showed a leukocytosis 17.3 likely reactive. CMP with no significant electrolyte abnormality or acidosis. Patient given symptomatic control in the ER. UA and disposition pending at time of sign out to Marilyn Ross PA-C. (Kanika Leblanc) Discharge. And stated above 44-year-old male presenting with nausea vomiting and abdominal pain. On my evaluation it is noted that patient has self-induced vomiting. Patient is refusing to leave a urine sample stating that she feels well and would like to be discharged at this time. Recommend follow-up outpatient with primary care provider and GI specialist. Case discussed with Dr. Salcedo (Marilyn Ross) - Lab Data Lab Results 10/21/24 10/21/24 10/21/24 Range/Units 17:38 17:38 17:38 WBC 17.3 H (3.8-10.6) k/uL RBC 4.69 (3.80-5.40) m/uL Hgb 14.4 (11.4-16.0) gm/dL Hct 45.1 (34.0-46.0) % MCV 96.2 (80.0-100.0) fL MCH 30.6 (25.0-35.0) pg MCHC 31.8 (31.0-37.0) g/dL RDW 14.2 (11.5-15.5) % Plt Count 417 (150-450) k/uL MPV 7.7 Neutrophils % 87 % Lymphocytes % 8 % Monocytes % 3 % Eosinophils % 1 % Basophils % 0 % Neutrophils # 15.0 H (1.3-7.7) k/uL Lymphocytes # 1.4 (1.0-4.8) k/uL Monocytes # 0.5 (0-1.0) k/uL Eosinophils # 0.2 (0-0.7) k/uL Basophils # 0.1 (0-0.2) k/uL Sodium 138 (137-145) mmol/L Potassium 4.2 (3.5-5.1) mmol/L Chloride 103 (98-107) mmol/L Carbon Dioxide 23 (22-30) mmol/L Anion Gap 12 mmol/L BUN 12 (7-17) mg/dL Creatinine 0.65 (0.52-1.04) mg/dL Est GFR (CKD-EPI)AfAm >90 (>60 ml/min/1.73 sqM) Est GFR (CKD-EPI)NonAf >90 (>60 ml/min/1.73 sqM) Glucose 146 H (74-99) mg/dL Plasma Lactic Acid [place] 1.1 (0.7-2.0) mmol/L Calcium 10.0 (8.4-10.2) mg/dL Total Bilirubin 0.9 (0.2-1.3) mg/dL AST 24 (14-36) U/L ALT 24 (4-34) U/L Alkaline Phosphatase 110 (38-126) U/L Total Protein 7.8 (6.3-8.2) g/dL Albumin 4.7 (3.5-5.0) g/dL Amylase 67 (30-110) U/L Lipase 168 (23-300) U/L - EKG Data EKG Comments: EKG taken at 17: 56 showing a sinus rhythm. No ST segment elevations or depressions. Inverted T waves in anterior leads. Ventricular rate 61, DC interval 133, QRS duration 89, QT/QTc 407/410. (Kanika Leblanc) Disposition <Kanika Leblanc - Last Filed: 10/21/24 18:59> Is patient prescribed a controlled substance at d/c from ED?: No Time of Disposition: 20:49 <Marilyn Ross - Last Filed: 10/22/24 00:28> Clinical Impression: Self induced vomiting Disposition: HOME SELF-CARE Condition: Stable Additional Instructions: Please return to the Emergency Department if symptoms worsen or any other concerns. Referrals: None,Stated [Primary Care Provider] - 1-2 days
[2024-10-21] MEDS: SODIUM CHLORIDE 0.9% 1,000 ML IV ONE (17:41)
[2024-10-21] MEDS: PANTOPRAZOLE 40 MG/10 ML VIAL IVP STA (17:42)
[2024-10-21] MEDS: KETOROLAC 15 MG/ML 1 ML VIAL IVP STA ×2 (17:42→20:57)
[2024-10-21] MEDS: ONDANSETRON 4 MG/2 ML VIAL IVP STA (17:42)
[2024-10-21 17:53] LABS: Basophils # (A) 0.1 k/uL (0-0.2); Basophils % (A) 0 %; Eosinophils # (A) 0.2 k/uL (0-0.7); Eosinophils % (A) 1 %; HCT 45.1 % (34.0-46.0); HGB 14.4 gm/dL (11.4-16.0); Lymphocytes # (A) 1.4 k/uL (1.0-4.8); Lymphocytes % (A) 8 %; MCH 30.6 pg (25.0-35.0); MCHC 31.8 g/dL (31.0-37.0); MCV 96.2 fL (80.0-100.0); Mean Platelet Volume 7.7; Monocytes # (A) 0.5 k/uL (0-1.0); Monocytes % (A) 3 %; Neutrophils % (A) 87 %; Platelet Count 417 k/uL (150-450); RBC 4.69 m/uL (3.80-5.40); RDW 14.2 % (11.5-15.5); WBC 17.3 k/uL (3.8-10.6)
[2024-10-21 18:03] LABS: ALT 24 U/L (4-34); AST 24 U/L (14-36); African American GFR (CKD) >90 (>60 ml/min/1.73 sqM); Albumin 4.7 g/dL (3.5-5.0); Alkaline Phosphatase 110 U/L (38-126); Amylase 67 U/L (30-110); Anion Gap 12 mmol/L; Blood Urea Nitrogen 12 mg/dL (7-17); Carbon Dioxide 23 mmol/L (22-30); Chloride 103 mmol/L (98-107); Glucose 146 mg/dL (74-99); Lipase 168 U/L (23-300); Non-African American GFR(CKD) >90 (>60 ml/min/1.73 sqM); Potassium 4.2 mmol/L (3.5-5.1); Sodium 138 mmol/L (137-145); Total Bilirubin 0.9 mg/dL (0.2-1.3); Total Protein 7.8 g/dL (6.3-8.2)
[2024-10-21] MEDS: HYDROmorphone 1 MG/ML 1 ML SYRINGE IVP STA (18:34)
[2024-10-21] MEDS: METOCLOPRAMIDE 5 MG/ML 2 ML VIAL IVP STA (20:23)
[2024-10-21 21:07] VITALS: BP 129/82; PULSE 86; TEMP 97.3
== END 2024-10-21 21:07 | disposition home or self-care (01) ==
LOC: EC 16:07
DX: R11.2 Nausea with vomiting, unspecified (principal); F17.200 Nicotine dependence, unspecified, uncomplicated; Z88.0 Allergy status to penicillin
CPT/HCPCS: 93005; 80053; 82150; 83605; 83690; 85025; 99284; 96374; 96375; 96376; 96361; J2765; J2405; J1171; J1885; J2470; 36415